=== PATIENT | male | born 1950 | race Caucasian/White ===

== ENCOUNTER → 2016-10-11 | Outpatient (REF) | payer OTHER ==
[2016-10-11 12:56] LABS: ALBUMIN 3.8 GM/DL (3.2-5.2); ALBUMIN/GLOBULIN RATIO 0.93 (1.00-1.93); ALKALINE PHOSPHATASE 51 U/L (45-117); ALT/SGPT 38 U/L (12-78); ANION GAP 7 MEQ/L (8-16); AST/SGOT 27 U/L (15-37); BILIRUBIN,TOTAL 0.6 MG/DL (0.2-1.0); BLOOD UREA NITROGEN 24 MG/DL (7-18); CARBON DIOXIDE LEVEL 26 MEQ/L (21-32); CHLORIDE LEVEL 108 MEQ/L (98-107); CHOLESTEROL LEVEL 139 MG/DL (<200); CREATININE FOR GFR 1.16 MG/DL (0.70-1.30); GLOMERULAR FILTRATION RATE > 60.0 (>49); GLUCOSE, FASTING 193 MG/DL (80-110); POTASSIUM SERUM 4.3 MEQ/L (3.5-5.1); SODIUM LEVEL 141 MEQ/L (136-145); TOTAL PROTEIN 7.9 GM/DL (6.4-8.2); TRIGLYCERIDES LEVEL 183 MG/DL (<150)
== END ==
LOC: M LABDRAW1 11:12
PROVIDERS: ATTEND Emergency Medicine
DX: E11.9 Type 2 diabetes mellitus without complications (principal); I10 Essential (primary) hypertension; E78.2 Mixed hyperlipidemia

== ENCOUNTER → 2017-04-03 | Outpatient (REF) | payer OTHER ==
[2017-04-03 13:02] LABS: ALBUMIN 3.7 GM/DL (3.2-5.2); ALKALINE PHOSPHATASE 48 U/L (45-117); ALT/SGPT 33 U/L (12-78); ANION GAP 10 MEQ/L (8-16); AST/SGOT 22 U/L (7-37); BILIRUBIN,TOTAL 0.6 MG/DL (0.2-1.0); BLOOD UREA NITROGEN 28 MG/DL (7-18); CARBON DIOXIDE LEVEL 24 MEQ/L (21-32); CHLORIDE LEVEL 106 MEQ/L (98-107); CHOLESTEROL LEVEL 141 MG/DL (<200); CREATININE FOR GFR 1.06 MG/DL (0.70-1.30); GLOMERULAR FILTRATION RATE > 60.0 (>49); GLUCOSE, FASTING 200 MG/DL (80-110); POTASSIUM SERUM 4.1 MEQ/L (3.5-5.1); SODIUM LEVEL 140 MEQ/L (136-145); TOTAL PROTEIN 7.8 GM/DL (6.4-8.2); TRIGLYCERIDES LEVEL 166 MG/DL (<150)
== END ==
LOC: M LABDRAW1 08:20
PROVIDERS: ATTEND Emergency Medicine
DX: E78.2 Mixed hyperlipidemia (principal); I10 Essential (primary) hypertension; E11.40 Type 2 diabetes mellitus with diabetic neuropathy, unspecified

== ENCOUNTER → 2017-10-11 | Outpatient (REF) | payer OTHER ==
[2017-10-11 12:14] LABS: ALBUMIN 3.9 GM/DL (3.2-5.2); ALKALINE PHOSPHATASE 52 U/L (45-117); ALT/SGPT 39 U/L (12-78); ANION GAP 12 MEQ/L (8-16); AST/SGOT 22 U/L (7-37); BILIRUBIN,TOTAL 0.5 MG/DL (0.2-1.0); BLOOD UREA NITROGEN 26 MG/DL (7-18); CALCIUM LEVEL 9.1 MG/DL (8.8-10.2); CARBON DIOXIDE LEVEL 24 MEQ/L (21-32); CHLORIDE LEVEL 108 MEQ/L (98-107); CHOLESTEROL LEVEL 137 MG/DL (<200); CHOLESTEROL RISK RATIO 3.261 (<5); CREATININE FOR GFR 1.17 MG/DL (0.70-1.30); GLOMERULAR FILTRATION RATE > 60.0 (>49); GLUCOSE, FASTING 168 MG/DL (70-100); HDL CHOLESTEROL 42 MG/DL (>40); LDL CHOLESTEROL 61.2 MG/DL (<100); NON-HDL-C 95 MG/DL; POTASSIUM SERUM 4.1 MEQ/L (3.5-5.1); SODIUM LEVEL 144 MEQ/L (136-145); TOTAL PROTEIN 7.8 GM/DL (6.4-8.2); TRIGLYCERIDES LEVEL 169 MG/DL (<150)
[2017-10-11 13:00] LABS: ESTIMATED AVERAGE GLUCOSE 174 MG/DL (60-110); HEMOGLOBIN A1c 7.7 %
== END ==
LOC: M LABDRAW1 07:42
DX: E11.40 Type 2 diabetes mellitus with diabetic neuropathy, unspecified (principal); I10 Essential (primary) hypertension; E78.2 Mixed hyperlipidemia

== ENCOUNTER → 2018-04-13 | Outpatient (REF) | payer OTHER ==
[2018-04-13 10:49] LABS: ALBUMIN 3.9 GM/DL (3.2-5.2); BILIRUBIN,TOTAL 0.4 MG/DL (0.2-1.0); CALCIUM LEVEL 9.1 MG/DL (8.8-10.2); CHOLESTEROL RISK RATIO 4.742 (<5); CREATININE FOR GFR 1.33 MG/DL (0.70-1.30); GLOMERULAR FILTRATION RATE 57.3 (>49); POTASSIUM SERUM 4.3 MEQ/L (3.5-5.1); TOTAL PROTEIN 8.1 GM/DL (6.4-8.2)
[2018-04-13 10:58] LABS: HEMOGLOBIN A1c 8.1 %
== END ==
LOC: M LABDRAW1 09:26
PROVIDERS: ATTEND Emergency Medicine
DX: E11.40 Type 2 diabetes mellitus with diabetic neuropathy, unspecified (principal); I10 Essential (primary) hypertension; E78.2 Mixed hyperlipidemia

== ENCOUNTER → 2018-07-17 | Outpatient (REF) | payer MEDICARE ==
[2018-07-17 09:51] LABS: BASO # 0.1 10^3/uL (0.0-0.2); BASO % 1.2 % (0.0-1.0); EOS # 0.6 10^3/uL (0.0-0.50); EOS % 7.3 % (0.0-3.0); HEMATOCRIT 44.9 % (42.0-52.0); HEMOGLOBIN 15.1 g/dl (13.5-17.5); LYMPH # 2.3 10^3/uL (1.5-4.5); MEAN CORPUSCULAR HEMOGLOBIN 30.6 pg (27.0-33.0); MEAN CORPUSCULAR HGB CONC 33.6 g/dl (32.0-36.5); MEAN CORPUSCULAR VOLUME 91.1 fl (80.0-96.0); MONO # 0.8 10^3/uL (0.0-0.8); MONO % 10.2 % (0.0-5.0); NEUTROPHILS # 4.1 10^3/uL (1.8-7.7); NEUTROPHILS % 52.2 % (36.0-66.0); PLATELET COUNT, AUTOMATED 256 10^3/uL (150-450); RED BLOOD COUNT 4.93 10^6/uL (4.30-6.10); WHITE BLOOD COUNT 7.8 10^3/uL (4.0-10.0)
[2018-07-17 09:54] LABS: ALBUMIN 3.7 GM/DL (3.2-5.2); ALT/SGPT 39 U/L (12-78); BILIRUBIN,TOTAL 0.4 MG/DL (0.2-1.0); BLOOD UREA NITROGEN 29 MG/DL (7-18); CALCIUM LEVEL 8.2 MG/DL (8.8-10.2); CARBON DIOXIDE LEVEL 24 MEQ/L (21-32); CHLORIDE LEVEL 109 MEQ/L (98-107); CREATININE FOR GFR 1.19 MG/DL (0.70-1.30); GLOMERULAR FILTRATION RATE > 60.0 (>49); GLUCOSE, FASTING 152 MG/DL (70-100); POTASSIUM SERUM 3.7 MEQ/L (3.5-5.1); SODIUM LEVEL 140 MEQ/L (136-145); TOTAL PROTEIN 7.4 GM/DL (6.4-8.2)
[2018-07-17 10:27] LABS: HEMOGLOBIN A1c 7.1 %
== END ==
LOC: M LABDRAW1 09:18
PROVIDERS: ATTEND Physician Assistant
DX: E11.40 Type 2 diabetes mellitus with diabetic neuropathy, unspecified (principal)

== ENCOUNTER → 2018-07-18 | Outpatient (REF) | payer MEDICARE ==
[2018-07-18 14:07] LABS: MALB URINE SIEMENS 12.1 MG/L; MAU/CREAT RATIO 10.6 MCG/MG (0.0-30.0)
== END ==
LOC: M LAB REF 12:47
PROVIDERS: ATTEND Physician Assistant
DX: E11.40 Type 2 diabetes mellitus with diabetic neuropathy, unspecified (principal)

== ENCOUNTER → 2019-01-22 | Outpatient (REF) | payer MEDICARE ==
[2019-01-22 12:12] LABS: ALBUMIN 3.7 GM/DL (3.2-5.2); ALT/SGPT 38 U/L (12-78); BILIRUBIN,TOTAL 0.5 MG/DL (0.2-1.0); BLOOD UREA NITROGEN 27 MG/DL (7-18); CALCIUM LEVEL 8.5 MG/DL (8.8-10.2); CARBON DIOXIDE LEVEL 28 MEQ/L (21-32); CHLORIDE LEVEL 106 MEQ/L (98-107); CHOLESTEROL LEVEL 139 MG/DL (<200); CHOLESTEROL RISK RATIO 3.564 (<5); CREATININE FOR GFR 1.12 MG/DL (0.70-1.30); GLOMERULAR FILTRATION RATE > 60.0 (>49); GLUCOSE, FASTING 128 MG/DL (70-100); HDL CHOLESTEROL 39 MG/DL (>40); LDL CHOLESTEROL 71 MG/DL (<100); NON-HDL-C 100 MG/DL; POTASSIUM SERUM 4.3 MEQ/L (3.5-5.1); SODIUM LEVEL 141 MEQ/L (136-145); TOTAL PROTEIN 7.4 GM/DL (6.4-8.2); TRIGLYCERIDES LEVEL 146 MG/DL (<150)
[2019-01-22 13:13] LABS: HEMOGLOBIN A1c 6.4 %
== END ==
LOC: M LABDRAW1 11:23
PROVIDERS: ATTEND Physician Assistant
DX: E11.40 Type 2 diabetes mellitus with diabetic neuropathy, unspecified (principal)

== ENCOUNTER → 2019-04-01 | Outpatient (CLI) | payer MEDICARE ==
--- NOTE | 2019-04-02 09:00 | REP ---
Left rib series: Seven views including PA chest. History: "Contusion of right back wall this a.m." , injury in a fall. Findings: Left rib views are obtained. PA chest views show no evidence of pneumothorax or hydrothorax on either side. No pulmonary contusion is seen. No mediastinal widening is noted. Heart size is normal. Multiple views of the left rib cage show no evidence of rib fracture or bony destructive lesion. Impression: Negative left rib radiographs series. Please note that history states contusion to the right back wall. Electronically Signed by Shaun Loera MD 04/02/2019 08:51 A
== END ==
LOC: M ADAMS 18:16
PROVIDERS: ATTEND Physician Assistant
DX: S20.221A Contusion of right back wall of thorax, initial encounter (principal); X58.XXXA Exposure to other specified factors, initial encounter; Y92.89 Other specified places as the place of occurrence of the external cause

== ENCOUNTER → 2019-04-03 | Outpatient (CLI) | payer MEDICARE ==
--- NOTE | 2019-04-03 14:25 | REP ---
Five views chest/right ribs: 04/03/2019. Indication: Right chest trauma. Comparison: 2 days earlier. Findings: There is no evidence of right rib fracture. There is no pneumothorax or evidence of lung contusion. Bibasilar atelectasis is present, particularly on the left. Multilevel degenerative sequelae of the thoracic spine are noted. Impression: No right-sided rib fracture detected. Electronically Signed by Saman Bourgeois DO 04/03/2019 02:16 P
== END ==
LOC: M ADAMS 13:42
PROVIDERS: ATTEND Physician Assistant
DX: S20.221A Contusion of right back wall of thorax, initial encounter (principal); X58.XXXA Exposure to other specified factors, initial encounter; Y92.89 Other specified places as the place of occurrence of the external cause

== ENCOUNTER → 2020-04-23 | Outpatient (CLI) | payer MEDICARE ==
[2020-04-23 11:08] LABS: BASO # 0.1 10^3/uL (0.0-0.2); BASO % 0.8 % (0.0-1.0); EOS # 0.6 10^3/uL (0.0-0.5); EOS % 6.8 % (0.0-3.0); HEMATOCRIT 48.4 % (42.0-52.0); HEMOGLOBIN 15.8 g/dl (13.5-17.5); LYMPH # 1.9 10^3/uL (1.5-5.0); LYMPH % 22.3 % (24.0-44.0); MEAN CORPUSCULAR HEMOGLOBIN 31.2 pg (27.0-33.0); MEAN CORPUSCULAR HGB CONC 32.6 g/dl (32.0-36.5); MEAN CORPUSCULAR VOLUME 95.7 fl (80.0-96.0); MONO # 1.2 10^3/uL (0.0-0.8); MONO % 14.8 % (0.0-5.0); NEUTROPHILS # 4.6 10^3/uL (1.5-8.5); NEUTROPHILS % 55.1 % (36.0-66.0); PLATELET COUNT, AUTOMATED 288 10^3/uL (150-450); RED BLOOD COUNT 5.06 10^6/uL (4.30-6.10); WHITE BLOOD COUNT 8.3 10^3/uL (4.0-10.0)
[2020-04-23 11:39] LABS: ALT/SGPT 51 U/L (12-78); BILIRUBIN,TOTAL 0.7 MG/DL (0.2-1.0); BLOOD UREA NITROGEN 28 MG/DL (7-18); CARBON DIOXIDE LEVEL 26 MEQ/L (21-32); CHLORIDE LEVEL 108 MEQ/L (98-107); CHOLESTEROL LEVEL 156 MG/DL (<200); CREATININE FOR GFR 1.23 MG/DL (0.70-1.30); GLOMERULAR FILTRATION RATE > 60.0 (>49); GLUCOSE, FASTING 75 MG/DL (70-100); HDL CHOLESTEROL 39 MG/DL (>40); LDL CHOLESTEROL 87 MG/DL (<100); NON-HDL-C 117 MG/DL; SODIUM LEVEL 140 MEQ/L (136-145); TOTAL PROTEIN 7.6 GM/DL (6.4-8.2); TRIGLYCERIDES LEVEL 149 MG/DL (<150)
[2020-04-23 15:22] LABS: HEMOGLOBIN A1c 6.7 %
== END ==
LOC: M PLALAB 08:18
PROVIDERS: ATTEND Physician Assistant
DX: E11.40 Type 2 diabetes mellitus with diabetic neuropathy, unspecified (principal); E78.2 Mixed hyperlipidemia; I70.213 Atherosclerosis of native arteries of extremities with intermittent claudication, bilateral legs

== ENCOUNTER → 2020-05-13 | Outpatient (CLI) | payer MEDICARE ==
[~2020-05-13] MED LIST: BRIM0.2S13 OS; CEPH500T PO; HYDR25TA PO; ISOS10TAB PO; KETO0.3S OS; LEVO500T3 PO; LISI20TA35 PO; NOVOINJ12 SC; NOVOINJ13 SC; PERC5TAB12 PO; SIMV40TA20 PO; TIMO0.5S29 OS; ZYVO1TAB PO
--- NOTE | 2020-05-13 18:47 | REP ---
INDICATION: CELLULITIS OF LEFT LOWER LIMB. COMPARISON: None. TECHNIQUE: Four views of the left foot are provided. FINDINGS: Four views of the left foot demonstrate overall normal mineral density. There are osteoarthritic changes at the 1st and 2nd MTP joints. Mild midfoot osteoarthritic spurring is seen. Vascular calcification is noted. Achilles calcaneal spurring is noted. There is dorsal forefoot soft tissue swelling which extends to some degree across the midfoot and ankle region anteriorly. No soft tissue gas or opaque foreign body is seen. No fracture is noted.. . . IMPRESSION: Osteoarthritic changes and heel spurring. Diffuse dorsal soft tissue swelling. Otherwise negative. No acute bony abnormality. Vascular calcification is seen.. <Electronically signed by Tristan Loera > 05/13/20 [id number]
== END ==
LOC: M ADAMS 15:04
PROVIDERS: ATTEND Nurse Practitioner Family
DX: L03.116 Cellulitis of left lower limb (principal); M19.072 Primary osteoarthritis, left ankle and foot; M77.32 Calcaneal spur, left foot

== ENCOUNTER 2020-05-15 10:13 | Inpatient (IN) | payer MEDICARE ==
[~2020-05-15] VITALS: Ht 180.3 cm; Wt 135.6 kg
[2020-05-15] MEDS ORDERED: SIMV40TA20 PO (10:32)
[2020-05-15] MEDS ORDERED: CEPH500T PO (10:32)
[2020-05-15] MEDS ORDERED: KETO0.3S OS (10:32)
[2020-05-15] MEDS ORDERED: LISI20TA35 PO (10:32)
[2020-05-15] MEDS ORDERED: BRIM0.2S13 OS (10:32)
[2020-05-15] MEDS ORDERED: TIMO0.5S29 OS (10:32)
[2020-05-15] MEDS ORDERED: NOVOINJ13 SC (10:34)
[2020-05-15] MEDS ORDERED: NOVOINJ12 SC (10:34)
--- OUTSIDE RECORDS SUMMARY | 2020-05-15 11:20 | CCD | Continuity of Care Document ---
Author Author Saurabh GUSTAFSON [facility] Organization Unknown Address [address] [place] [address] Phone [phone] Care Team Providers Care Spooler Operator Name Role Phone [facility] - Otolaryngology AUTM [phone] Darwin Stevenson MD AUTM [phone] [facility] AUTM Tani Mina MD AUTM Myke [place] AUTM [phone] Maty Barbour MD AUTM [phone] [facility] - Dermatology AUTM [phone] Problems Active Problems Provider Date Type 2 diabetes mellitus Blanca Harris, ANP Onset: 2010 Intermittent claudication due to atherosclerosis of ar calin of limb Geeta Velazquez PA-C Onset: 10/04/2019 Type 2 diabetes mellitus with proliferat geeta diabetic retinopathy with macular edema, right eye Ishan Stanton M.D. Onset: 10/16/2017 Intermittent claudication due to atherosclerosis of ar calin of limb Ishan Stanton M.D. Onset: 10/16/2017 Morbid obesity Ishan Stanton M.D. Onset: 2017 Type 2 diabetes mellitus with diabetic neuropathy, uns pecified Ishan Stanton M.D. Onset: 04/04/2017 Gastroesophageal reflux disease Ishan Stanton M.D. O nset: 11/04/2010 Dysfunction of eustachian tube Ishan Stanton M.D. On set: 09/07/2010 Benign paroxysmal positional vertigo Ishan Stanton M .D. Onset: 07/29/2010 Mixed hyperlipidemia Ishan Stanton M.D. Onset: 07/29 Essential hypertension Ishan Stanton M.D. Onset: Social History Type Date Description Comments Sex Unknown Tobacco Use Start: Unknown End: Unknown denies cigarette use Tobacco Use Start: Unknown Never Used Smokeless Tobacco ETOH Use Rarely consumes alcohol Tobacco Use Start: 04/17/64 End: 04/17/78 Patient is a forme r smoker smoked about 2 ppd Recreational Drug Use Denies Drug Use Smoking Status Reviewed: 05/12/20 Patient is a former smoker sm oked about 2 ppd Exercise Type/Frequency Does not exercise Sun Exposure Does not use sunscreen Seat Belt/Car Seat Always uses seat belt Smoke Alarms Yes Smoke Alarms Carbon Monoxide Detector: Yes Allergies, Adverse Reactions, Alerts Active Allergies Reaction Severity Comments Date Dye Nausea and Vomiting, hives 1 06/03/2008 Ibuprofen Anaphylaxis 04/02/2009 Medications Active Medications SIG Qnty Indications Ordering Provide r Date Cephalexin 500mg Tablets 1 by mouth four times a day 40tabs L03.116 Kiersten Gustafson FNP 05/12/2020 Onetouch Ultra 2 W/Device Kit use to monitor blood glucose up to 5 times daily, dx E11.9, using insulin 1units Ishan Stanton M.D. 04/20/2015 Onetouch Lancets Misc use to monitor blood glucose up to 5 times daily , e11.9, using insulin 400units Ishan Stanton M.D. 04/20/2015 Onetouch Ultra Blue Strips test fasting glucose up to 5 times daily for insulin management, dx e11.9 400units E11.9 Ishan Stanton M.D. 04/20/2015 Simvastatin 40mg Tablets take one tablet by mouth every day for cholesterol 90tabs E78.2 Jaxon Schreiber M.D. 04/07/2015 BD Pen Needle/Short/Ultrafine/31G X 5/16 " 31G X 8 mm Misc use for 5 times daily insulin injections 150units Ishan Stanton M.D. 02/05/2015 Lisinopril-Hydrochlorothiazide 20-12.5mg Tablets take two tablets by mouth every morning 180tabs I10 aYreli Schreiber M.D. 10/07/2013 Ketorolac Tromethamine 0.5% Soluti on 1 drop in affected eye four times a day as needed Unknown Cosopt 22.3-6.8mg/ml Solution one gtt. os twice a day Unknown Novolin 50 units am sc and 50 units pm sc Fi Maty jarrett MD Novolin R per sliding scale Maty Barbour MD Timolol Maleate 0.5% Solution place in both eyes twice a day Unknown Immunizations CPT Code Status Date Vaccine Lot # [id number] Refused 04/18/2018 Prevnar 13 For Adults 56163 Refused 04/18/2018 Zoster (Shingles ) Vaccine (HZV), Recombinant, Subunit, Adjuvanted 86205 Refused 04/18/2018 Pneumococcal Vaccine 01487 Refused 04/18/2018 Boostrix (Tdap) Tetnus, Diphtheria Toxoids & Acellular Pertussis 93704 Refused 04/18/2018 Influenza Virus, quadravalent, preservative free,age 3 and up Vital Signs Date Vital Result Comment 05/12/2020 9:19am BP Systolic 152 mmHg right arm BP Diastolic 61 mmHg right arm BP Systolic Recheck 133 mmHg recheck on left arm BP Diastolic Recheck 57 mmHg recheck on left arm Heart Rate 88 /min Body Temperature 96.4 F Respiratory Rate 20 /min Height 69 inches 5'9" Weight 311.38 lb O2 % BldC Oximetry 98 % Peak Expiratory Flow Rate 487 Estimated Peak Flow Rate [place] Body Weight 160 lb BMI (Body Mass Index) 46.0 kg/m2 04/27/2020 9:33am BP Systolic 160 mmHg BP Diastolic 60 mmHg BP Systolic Recheck 143 mmHg BP Diastolic Recheck 76 mmHg Heart Rate 65 /min Body Temperature 97.7 F Respiratory Rate 22 /min Height 69 inches 5'9" Weight 309.38 lb O2 % BldC Oximetry 98 % Peak Expiratory Flow Rate 487 Estimated Peak Flow Rate [place] Body Weight 160 lb BMI (Body Mass Index) 45.7 kg/m2 Results Description No Information Available Procedures Date Code Description Status 04/17/2018 711617859 Diabetic Foot Exam Completed Medical Devices Description No Information Available Encounters Type Date Location Provider Dx Diagnosis Office Visit 05/12/2020 9:00a Main Office Kiersten Gustafson FNP L03.1 16 Cellulitis of left lower limb Office Visit 04/27/2020 9:15a Main Office Maritza Cabrera PA E11.40 Type 2 diabetes mellitus with diabetic neuropathy, unsp E78.2 Mixed hyperlipidemia I10 Essential (primary) hyperten ada Office Visit 11/19/2019 11:30a Main Office Geeta Velazquez PA-C K59.0 0 Constipation, unspecified Assessments Date Code Description Provider 05/12/2020 L03.116 Cellulitis of left lower limb Pl Kiersten farooq FNP 04/27/2020 E11.40 Type 2 diabetes kris itus with diabetic neuropathy, unspecified PetrMaritza christina PA 04/27/2020 E78.2 Mixed hyperlipidemia Maritza Cabrera PA 04/27/2020 I10 Essential (primary) hypertension Maritza Cabrera PA 11/19/2019 K59.00 Constipation, unspecified Geeta Velazquez PA-C Plan of Treatment Future Appointment(s):* 05/15/2020 9:45 am - Kiersten Gustafson FNP at Main Office * 10/28/2020 8:15 am - Maritza Cabrera PA at Main Office 05/12/2020 - Kiersten Gustafson FNP* L03.116 Cellulitis of left lower limb* New Medication:* Cephalexin 500 mg - 1 by mouth four times a day * Comments:* Get xray, start antibiotic. See patient back in office in 3 days, if there is no improvement will consider inpatient care vs appraisal specialist referral * Follow up:* Monday Functional Status Functional Condition Comment Date Status Independent with all ADL's Activ e Bifocal glasses Active Independent with all IADL's Acti ve Mental Status Mental Condition Comment Date Status None Active Referrals Description No Information Available
--- OUTSIDE RECORDS SUMMARY | 2020-05-15 11:20 | CCD | Continuity of Care Document ---
Author Author Saurabh GUSTAFSON [facility] Organization Unknown Address [address] [place] [address] Phone [phone] Care Team Providers Care Rn Stars Name Role Phone [facility] - Otolaryngology AUTM [phone] Darwin Stevenson MD AUTM [phone] [place] [facility] AUTM Tani Mina MD AUTM [place] AUTM [phone] Maty Barbour MD AUTM [phone] [facility] Dermatology - Dermatology AUTM Problems Active Problems Provider Date Type 2 [...] tablets by mouth every morning 180tabs I10 Yareli Schreiber M.D. 10/07/2013 Ketorolac Tromethamine 0.5% Soluti [...] CPT Code Status Date Vaccine Lot # [id number] Refused 04/18/2018 Prevnar 13 For Adults 08497 Refused 04/18/2018 Zoster (Shingles ) Vaccine (HZV), Recombinant, Subunit, Adjuvanted 48923 Refused 04/18/2018 Pneumococcal Vaccine 20020 Refused 04/18/2018 Boostrix (Tdap) Tetnus, Diphtheria Toxoids & Acellular Pertussis 25339 Refused 04/18/2018 Influenza Virus, quadravalent, preservative free,age [...] Flow Rate 487 Estimated Peak Flow Rate [place] Body Weight 160 lb BMI (Body Mass [...] Flow Rate 487 Estimated Peak Flow Rate [place] Body Weight 160 lb BMI (Body Mass Index) 45.7 kg/m2 Results Description No Information Available Procedures Date Code Description Status 04/17/2018 976205250 Diabetic Foot Exam Completed Medical Devices Description No Information Available Encounters Type Date Location Provider Dx Diagnosis Office Visit 04/27/2020 9:15a Main Office Maritza [...] diabetes kris itus with diabetic neuropathy, unspecified Maritza Cabrera PA 04/27/2020 E78.2 Mixed hyperlipidemia Maritza Cabrera PA 04/27/2020 I10 Essential (primary) hypertension Maritza Cabrera PA 11/19/2019 K59.00 Constipation, unspecified Geeta Velazquez PA-C Plan of Treatment Future Appointment(s):* 10/28/2020 8:15 am - Maritza Cabrera PA at Main Office 05/12/2020 - Kiersten Gustafson FNP* L03.116 Cellulitis of left lower limb* New Medication:* Cephalexin 500 mg - 1 by mouth four times a day * New Xrays:* Foot, Complete, Left, Scheduled: 05/12/20 * Follow up:* Monday Functional Status Functional Condition Comment Date Status Independent with all ADL's Activ e Bifocal glasses Active Independent with all IADL's Acti ve Mental Status Mental Condition Comment Date Status None Active Referrals Description No Information Available
--- OUTSIDE RECORDS SUMMARY | 2020-05-15 11:20 | CCD | Continuity of Care Document ---
Author Author Saurabh FREDERICK PA Organization Unknown Address [address] [place] [address] Phone [phone] Care Team Providers Care Glue Maker Name Role Phone [facility] - Otolaryngology AUTM [phone] Darwin Stevenson MD AUTM [phone] [facility] AUTM Tani Mina MD AUTM [place] AUTM [phone] Maty Barbour MD AUTM [phone] [facility] Dermatology - Dermatology AUTM Problems Active Problems [...] Use Denies Drug Use Smoking Status Reviewed: 04/27/20 Patient is a former smoker sm oked [...] SIG Qnty Indications Ordering Provide r Date Onetouch Ultra 2 W/Device Kit use to [...] mouth every day for cholesterol 90tabs E78.2 Jaxno Schreiber M.D. 04/07/2015 BD Pen Needle/Short/Ultrafine/31G X [...] CPT Code Status Date Vaccine Lot # [id number] Refused 04/18/2018 Prevnar 13 For Adults 55952 Refused 04/18/2018 Zoster (Shingles ) Vaccine (HZV), Recombinant, Subunit, Adjuvanted 65362 Refused 04/18/2018 Pneumococcal Vaccine 87155 Refused 04/18/2018 Boostrix (Tdap) Tetnus, Diphtheria Toxoids & Acellular Pertussis 46008 Refused 04/18/2018 Influenza Virus, quadravalent, preservative free,age 3 and up Vital Signs Date Vital Result Comment 04/27/2020 9:33am BP Systolic 160 mmHg BP Diastolic 60 mmHg BP Systolic Recheck 143 mmHg BP Diastolic Recheck 76 mmHg Heart Rate 65 /min Body Temperature 97.7 F Respiratory Rate 22 /min Height 69 inches 5'9" Weight 309.38 lb O2 % BldC Oximetry 98 % Peak Expiratory Flow Rate 487 Estimated Peak Flow Rate [place] Body Weight 160 lb BMI (Body Mass Index) 45.7 kg/m2 11/19/2019 11:30am BP Systolic 137 mmHg BP Diastolic 59 mmHg Heart Rate 75 /min Body Temperature 98.3 F Respiratory Rate 18 /min Height 69 inches 5'9" Weight 307.12 lb O2 % BldC Oximetry 97 % Peak Expiratory Flow Rate 489 Estimated Peak Flow Rate [place] Body Weight 160 lb BMI (Body Mass Index) 45.3 kg/m2 Results Description No Information Available Procedures Date Code Description Status 04/17/2018 010320486 Diabetic Foot Exam Completed Medical Devices Description No Information Available Encounters Type Date Location Provider Dx Diagnosis Office Visit 04/27/2020 9:15a Main Office Maritza Frederick PA E11.40 Type 2 diabetes mellitus with diabetic neuropathy, unsp E78.2 Mixed hyperlipidemia I10 Essential (primary) hyperten ada Office Visit 11/19/2019 11:30a Main Office Geeta Velazquez PA-C K59.0 0 Constipation, unspecified Assessments Date Code Description Provider 04/27/2020 E11.40 Type 2 diabetes kris itus with diabetic neuropathy, unspecified Maritza Frederick PA 04/27/2020 E78.2 Mixed hyperlipidemia Maritza Frederick PA 04/27/2020 I10 Essential (primary) hypertension Maritza Frederick PA 11/19/2019 K59.00 Constipation, unspecified Geeta Velazquez PA-C Plan of Treatment Future Appointment(s):* 10/28/2020 8:15 am - Maritza Frederick PA at Main Office Functional Status Functional Condition Comment Date Status Independent with all ADL's Activ e Bifocal glasses Active Independent with all IADL's Acti ve Mental Status Mental Condition Comment Date Status None Active Referrals Description No Information Available
--- OUTSIDE RECORDS SUMMARY | 2020-05-15 11:21 | CCD ---
Continuity of Care Document (CCD) Created on: 04/27/2020 Saurabh Abdi External Reference #: [id number] : [id number] Sex: Male Author Author Saurabh MAC PA-C Organization Unknown Address [address] [place] [address] Phone [phone] Care Team Providers Care Golf Cart Assembler Name Role Phone [facility] - Otolaryngology AUTM [phone] Darwin Stevenson MD AUTM [phone] [facility] AUTM Tani Mina MD AUTM [place] AUTM [phone] Maty Barbour MD AUTM [phone] [facility] Dermatology - Dermatology AUTM [phone] Problems Active Problems Provider Date Type 2 diabetes mellitus Blanca Harris, ANP Onset: 2010 Intermittent claudication due to atherosclerosis of ar calin of limb Geeta Mac PA-C Onset: 10/04/2019 Type 2 diabetes mellitus [...] CPT Code Status Date Vaccine Lot # 31131 Refused 04/18/2018 Prevnar 13 For Adults 45463 Refused 04/18/2018 Zoster (Shingles ) Vaccine (HZV), Recombinant, Subunit, Adjuvanted 43723 Refused 04/18/2018 Pneumococcal Vaccine 57477 Refused 04/18/2018 Boostrix (Tdap) Tetnus, Diphtheria Toxoids & Acellular Pertussis 82425 Refused 04/18/2018 Influenza Virus, quadravalent, preservative free,age [...] Flow Rate 487 Estimated Peak Flow Rate [place] Body Weight 160 lb BMI (Body Mass Index) 45.7 kg/m2 11/19/2019 11:30am BP Systolic 137 mmHg BP Diastolic 59 mmHg Heart Rate 75 /min Body Temperature 98.3 F Respiratory Rate 18 /min Height 69 inches 5'9" Weight 307.12 lb O2 % BldC Oximetry 97 % Peak Expiratory Flow Rate 489 Estimated Peak Flow Rate [place] Body Weight 160 lb BMI (Body Mass Index) 45.3 kg/m2 Results Description No Information Available Procedures Date Code Description Status 04/17/2018 [id number] Diabetic Foot Exam Completed Medical Devices Description No Information Available Encounters Type Date Location Provider Dx Diagnosis Office Visit 04/27/2020 9:15a Main Office Maritza Cabrera PA E11.40 Type 2 diabetes mellitus with diabetic neuropathy, unsp E78.2 Mixed hyperlipidemia I10 Essential (primary) hyperten ada Office Visit 11/19/2019 11:30a Main Office Geeta Mac PA-C K59.0 0 Constipation, unspecified Assessments Date Code Description Provider 04/27/2020 E11.40 Type 2 diabetes kris itus with diabetic neuropathy, unspecified Maritza Cabrera PA 04/27/2020 E78.2 Mixed hyperlipidemia Maritza Cabrera PA 04/27/2020 I10 Essential (primary) hypertension Maritza Cabrera PA 11/19/2019 K59.00 Constipation, unspecified Geeta Mac PA-C Plan of Treatment Future Appointment(s):* 10/28/2020 8:15 am - Maritza Cabrera PA at Main Office 04/27/2020 - Maritza Cabrera PA* E11.40 Type 2 diabetes mellitus with diabetic neuropathy, unspecified* Comments:* A1c 6.7%, labs reviewed and discussedcontinue insulin, work on diet improvements and weight lossrefuses flu shot and pneumovax todayfoot exam done todayeye exam scheduled for later this weekhe does have some sores on his left 5th toe. No active infection today but he was encouraged to check feet daily at home to monitor for chnage * Follow up:* 6 months * E78.2 Mixed hyperlipidemia* Comments:* LDL at goal, continue simvastatin * I10 Essential (primary) hypertension* Comments:* stable, continue medication Functional Status Functional Condition Comment Date Status Independent with all ADL's Activ e Bifocal glasses Active Independent with all IADL's Acti ve Mental Status Mental Condition Comment Date Status None Active Referrals Description No Information Available
--- OUTSIDE RECORDS SUMMARY | 2020-05-15 11:21 | CCD ---
Author Author [facility] Organization [facility] Address Unknown Phone Unavailable Care Team Providers Care Frit Coater Name Role Phone Natalia Schreiber MD Unavailable Unavailable Abdoul, Natalia Downs MD Unavailable Unavailable Abdoul, Natalia Downs MD Unavailable Unavailable Abdoul, Natalia Downs MD Unavailable Unavailable Abdoul, Natalia Downs MD Unavailable Unavailable Abdoul, Natalia Downs MD Unavailable Unavailable Abdoul, Natalia Downs MD Unavailable Unavailable Abdoul, Natalia Downs MD Unavailable Unavailable Abdoul, Natalia Downs MD Unavailable Unavailable Abdoul, Natalia Downs MD Unavailable Unavailable Abdoul, Natalia Downs MD Unavailable Unavailable Abdoul, Natalia Downs MD Unavailable Unavailable Abdoul, Natalia Downs MD Unavailable Unavailable Abdoul, Natalia Downs MD Unavailable Unavailable Abdoul, Natalia Downs MD Unavailable Unavailable Abdoul, Natalia Downs MD Unavailable Unavailable Abdoul, Natalia Downs MD Unavailable Unavailable Abdoul, Natalia Downs MD Unavailable Unavailable Abdoul, Natalia Downs MD Unavailable Unavailable Abdoul, Natalia Downs MD Unavailable Unavailable Abdoul, Natalia Downs MD Unavailable Unavailable Abdoul, Natalia Downs MD Unavailable Unavailable Abdoul, Natalia Downs MD Unavailable Unavailable Abdoul, Natalia Downs MD Unavailable Unavailable Abdoul, Natalia Downs MD Unavailable Unavailable Abdoul, Natalia Downs MD Unavailable Unavailable Abdoul, Natalia Downs MD Unavailable Unavailable Abdoul, Natalia Downs MD Unavailable Unavailable Abdoul, Natalia Downs MD Unavailable Unavailable Abdoul, Natalia Downs MD Unavailable Unavailable Abdoul, Natalia Downs MD Unavailable Unavailable Abdoul, Natalia Downs MD Unavailable Unavailable Abdoul, Natalia Downs MD Unavailable Unavailable Abdoul, Natalia Downs MD Unavailable Unavailable Abdoul, Natalai Downs MD Unavailable Unavailable Abdoul, Natalia Downs MD Unavailable Unavailable Abdoul, Natalia Downs MD Unavailable Unavailable Abdoul, Natalia Downs MD Unavailable Unavailable Abdoul, Natalia Downs MD Unavailable Unavailable Abdoul, Natalia Downs MD Unavailable Unavailable Abdoul, Natalia Downs MD Unavailable Unavailable Abdoul, Natalia Downs MD Unavailable Unavailable Abdoul, Natalia Downs MD Unavailable Unavailable Abdoul, Natalia Downs MD Unavailable Unavailable Abdoul, Natalia Downs MD Unavailable Unavailable Abdoul, Natalia Downs MD Unavailable Unavailable Abdoul, Natalia Downs MD Unavailable Unavailable Abdoul, Natalia Downs MD Unavailable Unavailable Abdoul, Natalia Downs MD Unavailable Unavailable Abdoul, Natalia Downs MD Unavailable Unavailable Abdoul, Natalia Downs MD Unavailable Unavailable Abdoul, Natalia Downs MD Unavailable Unavailable Abdoul, Natalia Downs MD Unavailable Unavailable Abdoul, Natalia Downs MD Unavailable Unavailable Abdoul, Natalia Downs MD Unavailable Unavailable Abdoul, Natalia Downs MD Unavailable Unavailable Abdoul, Natalia Downs MD Unavailable Unavailable Abdoul, Natalia Downs MD Unavailable Unavailable Abdoul, Natalia Downs MD Unavailable Unavailable Abdoul, Natalia Downs MD Unavailable Unavailable Abdoul, Natalia Downs MD Unavailable Unavailable Abdoul, Natalia Downs MD Unavailable Unavailable Abdoul, Natalia Downs MD Unavailable Unavailable Abdoul, Natalia Downs MD Unavailable Unavailable Abdoul, Natalia Downs MD Unavailable Unavailable Abdoul, Natalia Downs MD Unavailable Unavailable Abdoul, Natalia Downs MD Unavailable Unavailable Abdoul, Natalia Downs MD Unavailable Unavailable Abdoul, Natalia Downs MD Unavailable Unavailable Abdoul, Natalia Downs MD Unavailable Unavailable Abdoul, Natalia Downs MD Unavailable Unavailable Abdoul, Natalia Downs MD Unavailable Unavailable Abdoul, Natalia Downs MD Unavailable Unavailable Abdoul, Natalia Downs MD Unavailable Unavailable Abdoul, Natalia Downs MD Unavailable Unavailable Scordo, M Geeta PA Unavailable Unavailable Scordo, M Geeta PA Unavailable Unavailable Scordo, M Geeta PA Unavailable Unavailable Scordo, M Geeta PA Unavailable Unavailable Scordo, M Geeta PA Unavailable Unavailable Scordo, M Geeta PA Unavailable Unavailable Scordo, M Geeta PA Unavailable Unavailable Scordo, M Geeta PA Unavailable Unavailable Scordo, M Geeta PA Unavailable Unavailable Scordo, M Geeta PA Unavailable Unavailable Scordo, M Geeta PA Unavailable Unavailable Scordo, M Geeta PA Unavailable Unavailable Scordo, M Geeta PA Unavailable Unavailable Scordo, M Geeta PA Unavailable Unavailable Scordo, M Geeta PA Unavailable Unavailable Scordo, M Geeta PA Unavailable Unavailable Scordo, M Geeta PA Unavailable Unavailable Scordo, M Geeta PA Unavailable Unavailable Scordo, M Geeta PA Unavailable Unavailable Scordo, M Geeta PA Unavailable Unavailable Scordo, M Geeta PA Unavailable Unavailable Scordo, M Geeta PA Unavailable Unavailable Scordo, M Geeta PA Unavailable Unavailable Scordo, M Geeta PA Unavailable Unavailable Scordo, M Geeta PA Unavailable Unavailable Scordo, M Getea PA Unavailable Unavailable Scordo, M Geeta PA Unavailable Unavailable Scordo, M Geeta PA Unavailable Unavailable Scordo, M Geeta PA Unavailable Unavailable Scordo, M Geeta PA Unavailable Unavailable Scordo, M Geeta PA Unavailable Unavailable Scordo, M Geeta PA Unavailable Unavailable Scordo, M Geeta PA Unavailable Unavailable Scordo, M Geeta PA Unavailable Unavailable Scordo, M Geeta PA Unavailable Unavailable Scordo, M Geeta PA Unavailable Unavailable Scordo, M Geeta PA Unavailable Unavailable Scordo, M Geeta PA Unavailable Unavailable Scordo, M Geeta PA Unavailable Unavailable Scordo, M Geeta PA Unavailable Unavailable Scordo, M Geeta PA Unavailable Unavailable Scordo, M Geeta PA Unavailable Unavailable Pleskach, Kiersten CONSTRUCTION PROJECT COORDINATOR Unavailable Unavailable Pleskach, Kiersten CONSTRUCTION PROJECT COORDINATOR Unavailable Unavailable Pleskach, Kiersten CONSTRUCTION PROJECT COORDINATOR Unavailable Unavailable Pleskach, Kiersten CONSTRUCTION PROJECT COORDINATOR Unavailable Unavailable Pleskach, Kiersten CONSTRUCTION PROJECT COORDINATOR Unavailable Unavailable Pleskach, Kiersten CONSTRUCTION PROJECT COORDINATOR Unavailable Unavailable Pleskach, Kiersten CONSTRUCTION PROJECT COORDINATOR Unavailable Unavailable Pleskach, Kiersten CONSTRUCTION PROJECT COORDINATOR Unavailable Unavailable Pleskach, Kiersten CONSTRUCTION PROJECT COORDINATOR Unavailable Unavailable Pleskach, Kiersten CONSTRUCTION PROJECT COORDINATOR Unavailable Unavailable Pleskach, Kiersten CONSTRUCTION PROJECT COORDINATOR Unavailable Unavailable Pleskach, Kiersten CONSTRUCTION PROJECT COORDINATOR Unavailable Unavailable Pleskach, Kiersten CONSTRUCTION PROJECT COORDINATOR Unavailable Unavailable Pleskach, Kiersten CONSTRUCTION PROJECT COORDINATOR Unavailable Unavailable Pleskach, Kiersten CONSTRUCTION PROJECT COORDINATOR Unavailable Unavailable Pleskach, Kiersten CONSTRUCTION PROJECT COORDINATOR Unavailable Unavailable Pleskach, Kiersten CONSTRUCTION PROJECT COORDINATOR Unavailable Unavailable Pleskach, Kiersten CONSTRUCTION PROJECT COORDINATOR Unavailable Unavailable Pleskach, Kiersten CONSTRUCTION PROJECT COORDINATOR Unavailable Unavailable Pleskach, Kiersten CONSTRUCTION PROJECT COORDINATOR Unavailable Unavailable Pleskach, Kiersten CONSTRUCTION PROJECT COORDINATOR Unavailable Unavailable Pleskach, Kiersten CONSTRUCTION PROJECT COORDINATOR Unavailable Unavailable Pleskach, Kiersten CONSTRUCTION PROJECT COORDINATOR Unavailable Unavailable Pleskach, Kiersten CONSTRUCTION PROJECT COORDINATOR Unavailable Unavailable Pleskach, Kiersten CONSTRUCTION PROJECT COORDINATOR Unavailable Unavailable Pleskach, Kiersten CONSTRUCTION PROJECT COORDINATOR Unavailable Unavailable Pleskach, Kiersten CONSTRUCTION PROJECT COORDINATOR Unavailable Unavailable Pleskach, Kiersten CONSTRUCTION PROJECT COORDINATOR Unavailable Unavailable Pleskach, Kiersten CONSTRUCTION PROJECT COORDINATOR Unavailable Unavailable Petrancosta, Lyon Maritza PA-C Unavailable Unavailabl e Petrancosta, Lyon Maritza PA-C Unavailable Unavailabl e Petrancosta, Lyon Maritza PA-C Unavailable Unavailabl e Petrancosta, Lyon Maritza PA-C Unavailable Unavailabl e Petrancosta, Lyon Maritza PA-C Unavailable Unavailabl e Petrancosta, Lyon Maritza PA-C Unavailable Unavailabl e Petrancosta, Lyon Maritza PA-C Unavailable Unavailabl e Petrancosta, Lyon Maritza PA-C Unavailable Unavailabl e Petrancosta, Lyon Maritza PA-C Unavailable Unavailabl e Petrancosta, Lyon Maritza PA-C Unavailable Unavailabl e Petrancosta, Lyon Maritza PA-C Unavailable Unavailabl e Petrancosta, Lyon Maritza PA-C Unavailable Unavailabl e Petrancosta, Lyon Maritza PA-C Unavailable Unavailabl e Petrancosta, Lyon Maritza PA-C Unavailable Unavailabl e Petrancosta, Lyon Maritza PA-C Unavailable Unavailabl e Petrancosta, Lyon Maritza PA-C Unavailable Unavailabl e Petrancosta, Lyon Maritza PA-C Unavailable Unavailabl e Petrancosta, Lyon Maritza PA-C Unavailable Unavailabl e Petrancosta, Lyon Maritza PA-C Unavailable Unavailabl e Petrancosta, Lyon Maritza PA-C Unavailable Unavailabl e Petrancosta, Lyon Maritza PA-C Unavailable Unavailabl e Petrancosta, Lyon Maritza PA-C Unavailable Unavailabl e Petrancosta, Lyon Maritza PA-C Unavailable Unavailabl e RING, K VENANCIO PA Unavailable Unavailable RING, K VENANCIO PA Unavailable Unavailable RING, K VENANCIO PA Unavailable Unavailable RING, K VENANCIO PA Unavailable Unavailable RING, K VENANCIO PA Unavailable Unavailable RING, K VENANCIO PA Unavailable Unavailable RING, K VENANCIO PA Unavailable Unavailable RING, K VENANCIO PA Unavailable Unavailable RING, K VENANCIO PA Unavailable Unavailable RING, K VENANCIO PA Unavailable Unavailable RING, K VENANCIO PA Unavailable Unavailable RING, K VENANCIO PA Unavailable Unavailable RING, K VENANCIO PA Unavailable Unavailable RING, K VENANCIO PA Unavailable Unavailable RING, K VENANCIO PA Unavailable Unavailable RING, K VENANCIO PA Unavailable Unavailable RING, K VENANCIO PA Unavailable Unavailable RING, K VENANCIO PA Unavailable Unavailable RING, K VENANCIO PA Unavailable Unavailable RING, K VENANCIO PA Unavailable Unavailable Re-disclosure Warning The records that you are about to access may contain information from federally-assisted alcohol or drug abuse programs. If such information is present, then the following federally mandated warning applies: This information has been disclosed to you from records protected by federal confidentiality rules (42 CFR part 2). The federal rules prohibit you from making any further disclosure of this information unless further disclosure is expressly permitted by the written consent of the person to whom it pertains or as otherwise permitted by 42 CFR part 2. A general authorization for the release of medical or other information is NOT sufficient for this purpose. The Federal rules restrict any use of the information to criminally investigate or prosecute any alcohol or drug abuse patient.The records that you are about to access may contain highly sensitive health information, the redisclosure of which is protected by Article 27-F of the [facility] Public Health law. If you continue you may have access to information: Regarding HIV / AIDS; Provided by facilities licensed or operated by the [facility] Office of Mental Health; or Provided by the [facility] Office for People With Developmental Disabilities. If such information is present, then the following [facility] mandated warning applies: This information has been disclosed to you from confidential records which are protected by state law. State law prohibits you from making any further disclosure of this information without the specific written consent of the person to whom it pertains, or as otherwise permitted by law. Any unauthorized further disclosure in violation of state law may result in a fine or correction sentence or both. A general authorization for the release of medical or other information is NOT sufficient authorization for further disc losure. Family History Family Member Name Family Member Gender Family Member Status Date o f Status Description Data Source(s) Unknown Male Problem [facility] ([facility]) Unknown Male Problem [facility] ([facility]) Unknown Unknown Problem [facility] ([facility] Encounters Encounter Providers Location Date Indications Data Source(s ) Outpatient Attender: Kiersten Gustafson [facility] Main Office 05/12/2020 0 8:00:00 AM EST [facility] ([facility] Outpatient Attender: Maritza Cabrera PA-C Main Office 04/27/2020 08:15:00 AM EST [facility] ([facility] Outpatient Attender: Geeta BAILON Main Office 11/19/2019 11:30:00 AM EDT [facility] ([facility] Outpatient Attender: Geeta BAILON Main Office 10/04/2019 08:00:00 AM EDT [facility] ([facility] Outpatient 04/24/2019 02:43:[address] [facility] Outpatient 04/21/2019 06:14:[address] [facility] Outpatient Attender: VENANCIO Ovalles [facility] 04/01/2019 03:30:00 PM EST [facility] ([facility]) Outpatient Attender: Yareli Schreiber MD Main Office 04/01/2019 03:00:0 0 PM EST [facility] ([facility] Medications Medication Brand Name Start Date Product Form Dose Route Admi nistrative Instructions Pharmacy Instructions Status Indications Reaction Description Data Source(s) Cephalexin 500 MG Oral Tablet Cephalexin 05/12/2020 12:00:00 AM EST ORAL active [facility] ([facility] olopatadine 2 MG/ML Ophthalmic Solution Olopatadine HCL 08/02/2019 12:00:00 AM EDT active [facility] ([facility] 5-325 mg 04/03/2019 12:00:00 AM EST tablet 12 TAKE ONE TABLET BY MOUTH EVERY 6 HOURS NEEDED FOR PAIN MAXIMUM DAILY DOSE = 4 TAKE ONE TABLET BY MOUTH EVERY 6 HOURS NEEDED FOR PAIN MAXIMUM DAILY DOSE = 4 SOLD: 04/03/2019 [facility] Acetaminophen 325 MG / Hydrocodone Bitartrate 5 MG Ora l Tablet Hydrocodone-Acetaminophen 04/03/2019 12:00:00 AM EST ORAL active [facility] ([facility] Insurance Providers Payer name Policy type / Coverage type Policy ID Covered constitution party ID Covered constitution party's relationship to guzman Policy Guzman Plan Information AETNA MEDICARE [id number] SP [id number] EMEDNY [id number] SP [id number] MEDICARE BLUE PPO [id number] SP [id number] WELLCARE [id number] SP [id number] UN COMMUNITY PLAN MCDO [id number] SP [id number] GROUP HEALTH INSURANCE [id number] SP [id number] AETNA O [id number] S [id number] AETNA O [id number] S [id number] AETNA O [id number] EXCELLUS BCBS B [id number] S [id number] Wellcare Commercial [id number] Self [id number] Blue Shield [facility] Advantage Commercial [id number] Self [id number] [facility] Medicare Commercial [id number] Self [id number] Wellcare Commercial [id number] Self [id number] Wellcare Today's Options Medigap Part [id number] Self [id number] [facility] Community Plan Commercial [id number] Self [id number] [facility] MEDICARE DUAL G [id number] Self [id number] [facility] MEDICARE DUAL G [id number] Self [id number] [facility] [id number] SP [id number] Ghi/Emblem HLTH (pr) Medigap Part B [id number] Self [id number] [facility] ([facility]) Commercial [id number] Self [id number] [facility] Community Plan Commercial [id number] Self [id number] [facility] Medicare Commercial [id number] Self [id number] [facility] Community Plan Commercial [id number] Self [id number] [facility] Medicare Commercial [id number] Self [id number] [facility] Community Plan Commercial [id number] Self [id number] [facility] Medicare Commercial [id number] Self [id number] UN COMMUNITY PLAN MCDO [id number] SP [id number] [facility] Community Plan Commercial Self [facility] Medicare Commercial Self [place] H [id number] Self [id number] GHI U [id number] Self [id number] [facility] Commercial Self [facility] COMM PLAN [place]ENZIE W [id number] S [id number] MEDICAID [id number] SP [id number] MEDICAID W [id number] S [id number] SELF PAY UNAVAILABLE SP UNAVAILA BLE GHI O [id number] S [id number] Problems, Conditions, and Diagnoses Code Display Name Description Problem Type Effective Dates Data Source(s) 134623440 Intermittent claudication due to atheros clerosis of artery of limb Intermittent claudication due to atherosclerosis of artery of limb Problem 10/04/2019 12:00:00 AM EDT [facility] ([facility] Results ID Date Data Source [id number] 11/28/2019 12:00:00 AM EDT [facility] Sherrie Hernandez Patient Name: EDUIN [id number] Date of : 1950[place] [address] Date of Exam: 11/28/2019#: Fax: [phone] EXAM: ABD FLAT & UPRIGHT W/O CHESTCLINICAL INFORMATION: Constipation.Supine and upright views of the abdomen show the intestinal gas pattern juan j nonspecific. The organs, silhouettes and so far as delineated appearunremarkable.Secondary to the patient's body habitus, the exam is limited due to lack ofoptimal radiographic beam penetration. Consider CT.IMPRESSION:Nonspecific intestinal gas pattern.DOROTHEA Carvajal/Amarjit you for referring EDUIN ELIZALDE to our office. Electronically Signed - DIOGENES ALBA DO 11/28/19 15:20 Name Value Range Interpretation Code Description Data Preeti rce(s) Supporting Document(s) Procedure Social History Code Duration Value Status Description Data Source(s ) Smoking 05/12/2020 12:00:00 AM EST - 04/17/1978 12:00:00 AM EST Patient is a former smoker completed Patient is a former smoker [facility] ([facility] Vital Signs ID Date Data Source UNK Name Value Range Interpretation Code Description Data Source(s) Body mass index (BMI) [Ratio] 46.0 kg/m2 46.0 k g/m2 [facility] ([facility] [place] body weight 160 [lb_av] 160 [lb_av] [facility] ([facility] Oxygen saturation in Arterial blood by Pulse oximetry 98 % 98 % [facility] ([facility] Body weight 311.38 [lb_av] 311.38 [lb_av] [facility] ([facility] Body height 69 [in_i] 69 [in_i] [facility] ([facility] 5'9" Respiratory rate 20 /min 20 /min [facility] ( [facility] Body temperature 96.4 [degF] 96.4 [degF] [facility] Heart rate 88 /min 88 /min [facility] Diastolic blood pressure 57 mm[Hg] 57 mm[Hg] [facility] recheck on left arm Systolic blood pressure 133 mm[Hg] 133 mm[Hg] M [facility] ([facility] recheck on left arm Diastolic blood pressure 61 mm[Hg] 61 mm[Hg] [facility] ([facility] right arm Systolic blood pressure 152 mm[Hg] 152 mm[Hg] M [facility] ([facility] right arm Body mass index (BMI) [Ratio] 45.7 kg/m2 45.7 k g/m2 [facility] ([facility] [place] body weight 160 [lb_av] 160 [lb_av] [facility] ([facility] Oxygen saturation in Arterial blood by Pulse oximetry 98 % 98 % [facility] ([facility] Body weight 309.38 [lb_av] 309.38 [lb_av] [facility] ([facility] Body height 69 [in_i] 69 [in_i] [facility] ([facility] 5'9" Respiratory rate 22 /min 22 /min [facility] ( [facility] Body temperature 97.7 [degF] 97.7 [degF] [facility] Heart rate 65 /min 65 /min [facility] Diastolic blood pressure 76 mm[Hg] 76 mm[Hg] [facility] Systolic blood pressure 143 mm[Hg] 143 mm[Hg] M [facility] ([facility] Diastolic blood pressure 60 mm[Hg] 60 mm[Hg] [facility] Systolic blood pressure 160 mm[Hg] 160 mm[Hg] M [facility] ([facility] Body mass index (BMI) [Ratio] 45.3 kg/m2 45.3 k g/m2 [facility] ([facility] [place] body weight 160 [lb_av] 160 [lb_av] [facility] ([facility] Oxygen saturation in Arterial blood by Pulse oximetry 97 % 97 % [facility] ([facility] Body weight 307.12 [lb_av] 307.12 [lb_av] [facility] ([facility] Body height 69 [in_i] 69 [in_i] [facility] ([facility] 5'9" Respiratory rate 18 /min 18 /min [facility] ( [facility] Body temperature 98.3 [degF] 98.3 [degF] [facility] ([facility] Heart rate 75 /min 75 /min [facility] ([facility] Diastolic blood pressure 59 mm[Hg] 59 mm[Hg] [facility] Systolic blood pressure 137 mm[Hg] 137 mm[Hg] [facility] ([facility] Body mass index (BMI) [Ratio] 46.2 kg/m2 46.2 k g/m2 [facility] ([facility] [place] body weight 160 [lb_av] 160 [lb_av] [facility] ([facility] Oxygen saturation in Arterial blood by Pulse oximetry 98 % 98 % [facility] ([facility] Body weight 312.75 [lb_av] 312.75 [lb_av] [facility] ([facility] Body height 69 [in_i] 69 [in_i] [facility] ([facility] 5'9" Respiratory rate 16 /min 16 /min [facility] ( [facility] Body temperature 97.8 [degF] 97.8 [degF] [facility] ([facility] Heart rate 70 /min 70 /min [facility] Diastolic blood pressure 65 mm[Hg] 65 mm[Hg] [facility] Systolic blood pressure 151 mm[Hg] 151 mm[Hg] [facility] ([facility] Diastolic blood pressure 67 mm[Hg] 67 mm[Hg] [facility] Systolic blood pressure 158 mm[Hg] 158 mm[Hg] [facility] ([facility] Body mass index (BMI) [Ratio] 41.1 kg/m2 41.1 k g/m2 [facility] ([facility]) Body height 71 [in_i] 71 [in_i] [facility] ([facility]) 5'11" Body weight 295.00 [lb_av] 295.00 [lb_av] [facility] ([facility]) Body temperature 98.3 [degF] 98.3 [degF] [facility] ([facility]) Oxygen saturation in Arterial blood by Pulse oximetry 95 % 95 % [facility] ([facility]) Respiratory rate 18 /min 18 /min [facility] ( [facility]) Heart rate 73 /min 73 /min [facility] ([facility]) Diastolic blood pressure 78 mm[Hg] 78 mm[Hg] [facility] ([facility]) Systolic blood pressure 172 mm[Hg] 172 mm[Hg] [facility] Systolic blood pressure 148 mm[Hg] 148 mm[Hg] [facility] Recheck Diastolic blood pressure 66 mm[Hg] 66 mm[Hg] [facility] Systolic blood pressure 153 mm[Hg] 153 mm[Hg] [facility] ([facility] Body mass index (BMI) [Ratio] 44.6 kg/m2 44.6 k g/m2 [facility] ([facility] Oxygen saturation in Arterial blood by Pulse oximetry 99 % 99 % [facility] ([facility] Body weight 302.00 [lb_av] 302.00 [lb_av] [facility] ([facility] Body height 69 [in_i] 69 [in_i] [facility] ([facility] 5'9" Respiratory rate 22 /min 22 /min [facility] ( [facility] Body temperature 97.1 [degF] 97.1 [degF] [facility] ([facility] Heart rate 79 /min 79 /min [facility] [facility] Diastolic blood pressure 65 mm[Hg] 65 mm[Hg] [facility] ([facility] Recheck
--- OUTSIDE RECORDS SUMMARY | 2020-05-15 11:21 | CCD | Continuity of Care Document ---
Author Author Saurabh FREDERICK PA Organization Unknown Address [address] [place] [address] Phone [phone] Care Team Providers Care Field Assessor Name Role Phone [facility] - Otolaryngology AUTM [phone] Darwin Stevenson MD AUTM [phone] [facility] AUTM [phone] Tani Mina MD AUTM Myke Covington AUTM [phone] Maty Barbour MD AUTM [phone] [facility] - Dermatology AUTM [phone] Problems Active Problems Provider Date Type 2 [...] CPT Code Status Date Vaccine Lot # 51281 Refused 04/18/2018 Prevnar 13 For Adults 86514 Refused 04/18/2018 Zoster (Shingles ) Vaccine (HZV), Recombinant, Subunit, Adjuvanted 87298 Refused 04/18/2018 Pneumococcal Vaccine 99790 Refused 04/18/2018 Boostrix (Tdap) Tetnus, Diphtheria Toxoids & Acellular Pertussis 52979 Refused 04/18/2018 Influenza Virus, quadravalent, preservative free,age [...] Flow Rate 487 Estimated Peak Flow Rate [place] Body Weight 160 lb BMI (Body Mass Index) 45.7 kg/m2 11/19/2019 11:30am BP Systolic 137 mmHg BP Diastolic 59 mmHg Heart Rate 75 /min Body Temperature 98.3 F Respiratory Rate 18 /min Height 69 inches 5'9" Weight 307.12 lb O2 % BldC Oximetry 97 % Peak Expiratory Flow Rate 489 Estimated Peak Flow Rate [place] Body Weight 160 lb BMI (Body Mass Index) 45.3 kg/m2 Results Description No Information Available Procedures Date Code Description Status 04/17/2018 [id number] Diabetic Foot Exam Completed Medical Devices Description [...] unspecified Geeta Velazquez PA-C Plan of Treatment 04/27/2020 - Maritza Frederick PA* E11.40 Type 2 diabetes mellitus with [...]
[2020-05-15 12:04] LABS: BASO # 0.1 10^3/uL (0.0-0.2); BASO % 0.4 % (0.0-1.0); EOS # 0.5 10^3/uL (0.0-0.5); EOS % 3.6 % (0.0-3.0); HEMATOCRIT 42.4 % (42.0-52.0); HEMOGLOBIN 13.9 g/dl (13.5-17.5); LYMPH # 1.2 10^3/uL (1.5-5.0); LYMPH % 9.3 % (24.0-44.0); MEAN CORPUSCULAR HEMOGLOBIN 30.9 pg (27.0-33.0); MEAN CORPUSCULAR HGB CONC 32.8 g/dl (32.0-36.5); MEAN CORPUSCULAR VOLUME 94.2 fl (80.0-96.0); MONO # 1.1 10^3/uL (0.0-0.8); MONO % 8.2 % (0.0-5.0); NEUTROPHILS # 10.1 10^3/uL (1.5-8.5); NEUTROPHILS % 78.1 % (36.0-66.0); PLATELET COUNT, AUTOMATED 320 10^3/uL (150-450); WHITE BLOOD COUNT 12.9 10^3/uL (4.0-10.0)
--- NOTE | 2020-05-15 12:18 | REP ---
INDICATION: cellulitis, rule out osteo. COMPARISON: Comparison left foot radiographs 13 May 2020.. TECHNIQUE: AP and lateral views are obtained. FINDINGS: AP and lateral views of the left foot demonstrate diffuse dorsal soft tissue swelling over the forefoot and midfoot extending up anterior to the distal tibia. Extensive vascular calcification is seen across the ankle. Plantar and Achilles calcaneal spurring are noted. The forefoot swelling is essentially unchanged from the 13 May 2020 study. No soft tissue gas is seen. No acute bony erosive change is observed.. No fracture or subluxation is seen. No opaque foreign body noted. IMPRESSION: Diffuse soft tissue swelling. No soft tissue gas, opaque foreign body, or acute bony erosive change is seen.. <Electronically signed by Tristan Loera > 05/15/20 [id number]
[2020-05-15 12:47] LABS: ERYTHROCYTE SEDIMENTATION RATE 60 mm/hr (0-20)
[2020-05-15 13:56] LABS: ALBUMIN 3.6 GM/DL (3.2-5.2); ALT/SGPT 29 U/L (12-78); BILIRUBIN,TOTAL 0.4 MG/DL (0.2-1.0); BLOOD UREA NITROGEN 33 MG/DL (7-18); C REACTIVE PROTEIN QUANTITATIV 5.07 MG/DL (0.00-0.30); CARBON DIOXIDE LEVEL 26 MEQ/L (21-32); CHLORIDE LEVEL 104 MEQ/L (98-107); GLOMERULAR FILTRATION RATE > 60.0 (>49); GLUCOSE, FASTING 245 MG/DL (70-100); POTASSIUM SERUM 4.5 MEQ/L (3.5-5.1); SODIUM LEVEL 137 MEQ/L (136-145); TOTAL PROTEIN 7.8 GM/DL (6.4-8.2)
[2020-05-15 14:44] LABS: RSV AMPLIFICATION NEGATIVE (NEGATIVE)
[2020-05-15] MEDS ORDERED: GLUCAGON INJ 1MG VIAL SC PRN (14:45)
[2020-05-15] MEDS ORDERED: DEXTROSE 50% 50 ML SYRINGE IV PRN (14:45)
[2020-05-15] MEDS ORDERED: traMADol 50 MG TAB PO PRN (14:45)
[2020-05-15] MEDS ORDERED: GLUCOSE 4GM CHEW TABLET PO PRN (14:45)
--- OUTSIDE RECORDS SUMMARY | 2020-05-15 14:53 | CCD ---
Author Author [facility] Organization [facility] Address Unknown Phone Unavailable Care Team Providers Care Trial Consultant Name Role Phone Natalia Schreiber MD Unavailable [...] M Geeta PA Unavailable Unavailable Pleskach, Kiersten MASTER LAY OUT SPECIALIST Unavailable Unavailable Pleskach, Kiersten MASTER LAY OUT SPECIALIST Unavailable Unavailable Pleskach, Kiersten MASTER LAY OUT SPECIALIST Unavailable Unavailable Pleskach, Kiersten MASTER LAY OUT SPECIALIST Unavailable Unavailable Pleskach, Kiersten MASTER LAY OUT SPECIALIST Unavailable Unavailable Pleskach, Kiersten MASTER LAY OUT SPECIALIST Unavailable Unavailable Pleskach, Kiersten MASTER LAY OUT SPECIALIST Unavailable Unavailable Pleskach, Kiersten MASTER LAY OUT SPECIALIST Unavailable Unavailable Pleskach, Kiersten MASTER LAY OUT SPECIALIST Unavailable Unavailable Pleskach, Kiersten MASTER LAY OUT SPECIALIST Unavailable Unavailable Pleskach, Kiersten MASTER LAY OUT SPECIALIST Unavailable Unavailable Pleskach, Kiersten MASTER LAY OUT SPECIALIST Unavailable Unavailable Pleskach, Kiersten MASTER LAY OUT SPECIALIST Unavailable Unavailable Pleskach, Kiersten MASTER LAY OUT SPECIALIST Unavailable Unavailable Pleskach, Kiersten MASTER LAY OUT SPECIALIST Unavailable Unavailable Pleskach, Kiersten MASTER LAY OUT SPECIALIST Unavailable Unavailable Pleskach, Kiersten MASTER LAY OUT SPECIALIST Unavailable Unavailable Pleskach, Kiersten MASTER LAY OUT SPECIALIST Unavailable Unavailable Pleskach, Kiersten MASTER LAY OUT SPECIALIST Unavailable Unavailable Pleskach, Kiersten MASTER LAY OUT SPECIALIST Unavailable Unavailable Pleskach, Kiersten MASTER LAY OUT SPECIALIST Unavailable Unavailable Pleskach, Kiersten MASTER LAY OUT SPECIALIST Unavailable Unavailable Pleskach, Kiersten MASTER LAY OUT SPECIALIST Unavailable Unavailable Pleskach, Kiersten MASTER LAY OUT SPECIALIST Unavailable Unavailable Pleskach, Kiersten MASTER LAY OUT SPECIALIST Unavailable Unavailable Pleskach, Kiersten MASTER LAY OUT SPECIALIST Unavailable Unavailable Pleskach, Kiersten MASTER LAY OUT SPECIALIST Unavailable Unavailable Pleskach, Kiersten MASTER LAY OUT SPECIALIST Unavailable Unavailable Pleskach, Kiersten MASTER LAY OUT SPECIALIST Unavailable Unavailable Petrancosta, Robeson Maritza PA-C Unavailable Unavailabl e Petrancosta, Robeson Maritza PA-C Unavailable Unavailabl e Petrancosta, Robeson Maritza PA-C Unavailable Unavailabl e Petrancosta, Robeson Maritza PA-C Unavailable Unavailabl e Petrancosta, Robeson Maritza PA-C Unavailable Unavailabl e Petrancosta, Robeson Maritza PA-C Unavailable Unavailabl e Petrancosta, Robeson Maritza PA-C Unavailable Unavailabl e Petrancosta, Robeson Maritza PA-C Unavailable Unavailabl e Petrancosta, Robeson Maritza PA-C Unavailable Unavailabl e Petrancosta, Robeson Maritza PA-C Unavailable Unavailabl e Petrancosta, Robeson Maritza PA-C Unavailable Unavailabl e Petrancosta, Robeson Maritza PA-C Unavailable Unavailabl e Petrancosta, Robeson Maritza PA-C Unavailable Unavailabl e Petrancosta, Robeson Maritza PA-C Unavailable Unavailabl e Petrancosta, Robeson Maritza PA-C Unavailable Unavailabl e Petrancosta, Robeson Maritza PA-C Unavailable Unavailabl e Petrancosta, Robeson Maritza PA-C Unavailable Unavailabl e Petrancosta, Robeson Maritza PA-C Unavailable Unavailabl e Petrancosta, Robeson Maritza PA-C Unavailable Unavailabl e Petrancosta, Robeson Maritza PA-C Unavailable Unavailabl e Petrancosta, Robeson Maritza PA-C Unavailable Unavailabl e Petrancosta, Robeson Maritza PA-C Unavailable Unavailabl e Petrancosta, Robeson Maritza PA-C Unavailable Unavailabl e RING, K [...] is protected by Article 27-F of the [facility] Public Health law. If you continue you may have access to information: Regarding HIV / AIDS; Provided by facilities licensed or operated by the [facility] Office of Mental Health; or Provided by the [facility] Office for People With Developmental Disabilities. If such information is present, then the following [facility] mandated warning applies: This information [...] law may result in a fine or fpc sentence or both. A general authorization for [...] Data Source(s ) Outpatient Attender: Kiersten Gustaf[facility] Main Office 05/12/2020 0 8:00:00 AM EST [facility] ([facility] Outpatient Attender: Maritza Cabrera PA-C Main Office 04/27/2020 08:15:00 AM EST [facility] ([facility] Outpatient Attender: Geeta BAILON Main Office 11/19/2019 11:30:00 AM EDT [facility] ([facility] Outpatient Attender: Geeta BAILON Main Office 10/04/2019 08:00:00 AM EDT [facility] ([facility] Outpatient 04/24/2019 02:43:00 PM EST [facility] Radiology Imaging Outpatient 04/21/2019 06:14:00 PM EST [facility] Radiology Imaging Outpatient Attender: VENANCIO Ovalles [facility] 04/01/2019 03:30:00 PM EST [facility] ([facility] Car [facility], [facility]) Outpatient Attender: Yareli [...] 04/03/2019 12:00:00 AM EST ORAL active [facility] ([facility]) Insurance Providers Payer name Policy type / Coverage type Policy ID Covered alliance party ID Covered alliance party's relationship to guzman Policy Guzman Plan Information AETNA MEDICARE [id number] SP [id number] AETNA MEDICARE [id number] SP [id number] EMEDNY [id number] SP [id number] MEDICARE BLUE PPO [id number] SP [id number] WELLCARE [id number] SP [id number] [facility] COMMUNITY PLAN [facility] [id number] SP [id number] GROUP HEALTH INSURANCE [id number] SP [id number] AETNA O [id number] S [id number] AETNA O [id number] S [id number] AETNA O [id number] S [id number] EXCELLUS BCBS B [id number] S [id number] [id number] Wellcare Commercial [id number] Self [id number] Blue Shield [facility] Advantage Commercial [id number] Self [id number] [facility] Medicare Commercial [id number] Self [id number] Wellcare Commercial [id number] Self [id number] Wellcare Today's Options Medigap Part B [id number] Self [id number] [facility] Community Plan Commercial [id number] Self [id number] [facility] MEDICARE DUAL G [id number] Self [id number] [facility] MEDICARE DUAL G [id number] Self [id number] [facility] COMMUNITY PLAN [facility] [id number] SP [id number] Ghi/Emblem HLTH (pr) Medigap Part B [id number] Self [id number] [facility] ([facility]) Commercial [id number] Self [id number] [facility] Community Plan Commercial [id number] Self [id number] [facility] Medicare Commercial [id number] Self [id number] [facility] Community Plan Commercial [id number] Self [id number] [facility] Medicare Commercial [id number] Self [id number] [facility] Community Plan Commercial [id number] Self [id number] [facility] Medicare Commercial [id number] Self [id number] [facility] COMMUNITY PLAN MCDO [id number] SP [id number] [facility] Community Plan Commercial Self [facility] Medicare Commercial Self [place] [id number] Self [id number] GHI U [id number] Self [id number] [facility] Commercial [facility] COMM PLAN KENZIE W [id number] S [id number] MEDICAID [id number] SP [id number] MEDICAID W [id number] S [id number] SELF PAY UNAVAILABLE SP UNAVAILA BLE GHI O [id number] S [id number] Problems, Conditions, and Diagnoses Code Display Name Description Problem Type Effective Dates Data Source(s) [id number] Intermittent claudication due to atheros clerosis of artery of limb Intermittent claudication due to atherosclerosis of artery of limb Problem 10/04/2019 12:00:00 AM EDT [facility] ([facility] Results ID Date Data Source [id number] 11/28/2019 12:00:[address] [facility] Sherrie Hernandez Patient Name: EDUIN [id number] [facility] 1950[facility] [place] [address] Date of Exam: 11/28/2019#: Fax: [phone] EXAM: [...] k g/m2 [facility] ([facility] [place] body weight 160 [lb_av] 160 [lb_av] MED[facility] [...] k g/m2 [facility] ([facility] [place] body weight 160 [lb_av] 160 [lb_av] MED[facility] [...] k g/m2 [facility] ([facility] [place] body weight 160 [lb_av] 160 [lb_av] MED[facility] [...] Systolic blood pressure 137 mm[Hg] 137 mm[Hg] M EDENT ([facility] Body mass index (BMI) [Ratio] 46.2 kg/m2 46.2 k g/m2 [facility] ([facility] [place] body weight 160 [lb_av] 160 [lb_av] [facility] [...] [facility].C.) Body temperature 97.8 [degF] 97.8 [degF] [facility] Heart rate 70 /min 70 /min [facility] ([facility] Diastolic blood pressure 65 mm[Hg] 65 mm[Hg] [facility] Systolic blood pressure 151 mm[Hg] 151 mm[Hg] [facility] ([facility] Diastolic blood pressure 67 mm[Hg] 67 mm[Hg] [facility] Systolic blood pressure 158 mm[Hg] 158 mm[Hg] [facility] ([facility] Body mass index (BMI) [Ratio] 41.1 kg/m2 41.1 k g/m2 [facility] ([facility]) Body height 71 [in_i] 71 [in_i] [facility] ([facility]) 5'11" Body weight 295.00 [lb_av] 295.00 [lb_av] [facility] T ([facility]) Body temperature 98.3 [degF] 98.3 [degF] [facility] ([facility]) Oxygen saturation in Arterial blood by Pulse oximetry 95 % 95 % [facility] ([facility]) Respiratory rate 18 /min 18 /min [facility] ( [facility]) Heart rate 73 /min 73 /min [facility] ([facility]) Diastolic blood pressure 78 mm[Hg] 78 mm[Hg] [facility] ([facility]) Systolic blood pressure 172 mm[Hg] 172 mm[Hg] [facility] ([facility]) Systolic blood pressure 148 mm[Hg] 148 mm[Hg] [facility] ([facility] Recheck Diastolic blood pressure 66 mm[Hg] 66 mm[Hg] [facility] ([facility] Systolic blood pressure 153 mm[Hg] 153 mm[Hg] M [facility] ([facility] [...]
--- NOTE | 2020-05-15 16:15 | HPEPDOC ---
General Date of Admission May 15, 2020 at 14:30 Date of Service: May 15, 2020 Attending Physician: JULIO PISANO DO Chief Complaint The patient is a 70-year-old male admitted with a reason for visit of Cellulitis. Source: Patient History of Present Illness Mr. Abdi is a 70 year old male with diabetes mellitus and cataracts who presents with left foot pain, swelling, and tenderness. A few months ago, patient dropped the chainsaw on his left foot. It cut through the shoe and created an ulcer on the lateral side of the fifth toe. He has been caring for it at home. About 2 weeks ago, he slid and crushed the toes of his left foot against the refrigerator. It created an open wound on the medial aspect of the big toe. He's been soaking his foot in Epsom salt bath. Since then, he developing pain, erythema, and tenderness to the left foot. He saw his PCP who started him on cephalexin. He started taking antibiotic on Monday. Today, symptoms have not improved and he came into the ED. Patient's vitals have been stable. He remains afebrile with no tachycardia or tachypnea. Workup was significant for leukocytosis of 12.9, ESR 60, CRP 5.07, and a x-ray of the left foot demonstrate diffuse soft tissue swelling. When I saw the patient, his foot was very tender to light touch. He has old scabs on the medial left toe and lateral left fifth toe. There is erythema of his foot with indiscernible margin. The left foot looked more swollen compared to the right. Patient will be admitted for failed outpatient treatment for diabetic foot infection. Home Medications Scheduled Brimonidine Tartrate (Brimonidine Tartrate) 0.2% 5ML Drops, 1 DROP OS BID, (Reported) Cephalexin (Cephalexin) 500 Mg Tablet, 500 MG PO QID, (Reported) Insulin NPH Human Isophane (Novolin N) 100 Unit/1 Ml Vial, 40 UNITS SC TID, (Reported) Insulin Regular, Human (Novolin R) 100 Unit/1 Ml Vial, 1 UNITS SC AC, (Reported) PER SLIDING SCALE Ketorolac Tromethamine (Ketorolac Tromethamine) 0.4% Drops, 1 DROP OS QID, (Reported) Lisinopril/Hydrochlorothiazide (Lisinopril-Hctz 20-12.5 mg Tab) 1 Each Tablet, 2 TAB PO DAILY, (Reported) Simvastatin (Simvastatin) 40 Mg Tablet, 40 MG PO DAILY, (Reported) Timolol Maleate (Timolol Maleate) 0.5% 5ML Drops, 1 DROP OS DAILY, (Reported) Allergies Coded Allergies: ibuprofen (Verified Allergy, Severe, anaphylaxis, 05/15/20) Iodinated Contrast Media (Verified Adverse Reaction, Unknown, nausea, 05/15/20) Past Medical History Medical History 1. Diabetes mellitus 2. Cataracts Surgical History 1. Multiple surgeries of the eyes (11 in total) Family History Father: Alive at the age of 86. Reports one stent but unsure where Mother: . History of diabetes mellitus and Parkinson's Social History * Smoker: former Smoker (quit 42 years ago) Alcohol: Denies Drugs: denies A-FIB/CHADSVASC A-FIB History Current/History of A-Fib/PAF?: No Review of Systems Constitutional: Denies: Chills, Fever Eyes: Denies: Vision change ENT: Denies: Head Aches Skin: Reports: Rash (Left leg erythema), Breakdown (Left foot: medial side of big toe and lateral side of 5th toe has scabbed over wounds. Dorsal side 2nd and 3rd toe has small ulcers) Pulmonary: Denies: Dyspnea, Cough Cardiovascular: Denies: Chest Pain, Palpitations Gastrointestinal: Denies: Nausea, Abdominal Pain, Diarrhea Genitourinary: Denies: Dysuria Hematologic: Denies: Bruising Musculoskeletal: Reports: Foot Pain (left foot) Neurological: Denies: Numbness Physical Examination General Exam: Positive: Alert, Cooperative Eye Exam: Positive: EOMI; Negative: Sclera icteric ENT Exam: Positive: Atraumatic Neck Exam: Positive: Supple Chest Exam: Positive: Diminished Heart Exam: Positive: Rate Normal, Regular Rhythm Abdomen Exam: Positive: Normal bowel sounds, Soft, Other (obese); Negative: Tenderness Extremity Exam: Positive: Edema (bilateral, but worse on left), Tenderness (Left leg) Skin Exam: Positive: Lesion (Left foot: medial side of big toe and lateral side of 5th toe has scabbed over wounds. Dorsal side 2nd and 3rd toe has small ulcers) Neuro Exam: Positive: Cranial Nerves 3-12 NL Psych Exam: Positive: Mental status NL, Mood NL Vital Signs Vital Signs Date Time Temp Pulse Resp B/P (MAP) Pulse Ox O2 Delivery O2 Flow Rate FiO2 05/15/20 15:04 96.6 84 20 142/65 (90) 97 Room Air Laboratory Data Labs 24H Laboratory Tests 2 05/15/20 11:46: Immature Granulocyte % (Auto) 0.4, Neutrophils (%) (Auto) 78.1H, Lymphocytes (%) (Auto) 9.3L, Monocytes (%) (Auto) 8.2H, Eosinophils (%) (Auto) 3.6H, Basophils (%) (Auto) 0.4, Neutrophils # (Auto) 10.1H, Lymphocytes # (Auto) 1.2L, Monocytes # (Auto) 1.1H, Eosinophils # (Auto) 0.5, Basophils # (Auto) 0.1, Nucleated Red Blood Cells % (auto) 0.0, Erythrocyte Sedimentation Rate 60H 05/15/20 13:14: Anion Gap 7L, Glomerular Filtration Rate > 60.0, Calcium Level 9.0, Magnesium Level 2.0, Total Bilirubin 0.4, Aspartate Amino Transf (AST/SGOT) 19, Alanine Aminotransferase (ALT/SGPT) 29, Alkaline Phosphatase 57, C-Reactive Protein, Quantitative 5.07H, Total Protein 7.8, Albumin 3.6, Albumin/Globulin Ratio 0.9 05/15/20 14:00: Coronavirus (COVID-19)(PCR) NEGATIVE, Influenza Type A (RT-PCR) NEGATIVE, Influenza Type B (RT-PCR) NEGATIVE, Respiratory Syncytial Virus (PCR) NEGATIVE CBC/BMP Laboratory Tests 05/15/20 11:46 05/15/20 13:14 Assessment/Plan Mr. Abdi is a 70 year old male with diabetes mellitus and cataracts who presents with left foot pain, swelling, and tenderness. Patient has a left foot diabetic foot infection of failed outpatient therapy with cephalexin. Will cover with broad-spectrum antibiotics. We'll order a ultrasound of the left leg to rule out DVT and MRI of the left foot to evaluate for osteomyelitis. Plan / VTE VTE Prophylaxis Ordered?: Yes Plan Plan 1. Left diabetic foot infection Failed outpatient therapy with cephalexin Start broad-spectrum antibiotics Ultrasound of left leg to rule DVT MRI of left foot to evaluate for osteomyelitis Pain control with acetaminophen and tramadol 2. Insulin-dependent diabetes mellitus We will continue with his Insulin NPO 40 units with meals Added on FSBS ACHS and sliding scale insulin with meals We will check an HbA1c 3. Cataracts We will continue his eyedrops 4. Hypertension We will continue his lisinopril and hydrochlorothiazide 5. Hyperlipidemia Continue simvastatin 6. DVT prophylaxis Lovenox Disposition: Pending results from MRI and ultrasound and response to antibiotics JULIO PISANO DO May 15, 2020 16:15
[2020-05-15] MEDS ORDERED: VANCOMYCIN HCL 1,000 MG, VIAL MATE ADAPTER 1 EACH in D5W 250 ML IV ONE (17:00)
--- NOTE | 2020-05-15 17:33 | REPVR ---
PROCEDURE INFORMATION: Exam: US Duplex Left Lower Extremity Veins, Limited Exam date and time: 05/15/2020 5:07 PM Age: 70 years old Clinical indication: Edema, localized; Lower extremity, left; Additional info: Leg swelling and erythema, looking for dvt TECHNIQUE: Imaging protocol: Real-time Duplex ultrasound of the Left Lower Extremity with 2-D anne scale, color Doppler flow and spectral waveform analysis with image documentation. Limited exam focused on the left lower extremity veins. COMPARISON: No relevant prior studies available. FINDINGS: Left deep veins: Unremarkable. The common femoral, femoral, proximal profunda femoral and popliteal veins are patent without thrombus. Normal Doppler waveforms. Normal compressibility and/or augmentation response. Left superficial veins: Unremarkable. Saphenofemoral junction is patent without thrombus. Limitations: Technically limited study because of patient body habitus. Soft tissues: Unremarkable. IMPRESSION: No sonographic evidence of deep vein thrombosis. Electronically signed by: Rocio Kothari On 05/15/2020 17:32:51 PM
[2020-05-15] MEDS: PIPERACILLIN/TAZOBACTAM SOD 4.5 GM in D5W MINI-BAG PLUS 50 ML IV SCH (17:36)
[2020-05-15] MEDS ORDERED: PROHANCE 279.3MG/ML 5ML VIAL As Ordered ONE (21:51)
[2020-05-15] MEDS ORDERED: PROHANCE 279.3MG/ML 15ML VIAL As Ordered ONE (21:52)
[2020-05-15] MEDS: VANCOMYCIN HCL 1,000 MG, VIAL MATE ADAPTER 1 EACH in D5W 250 ML IV SCH (22:19)
--- NOTE | 2020-05-15 22:35 | REPVR ---
PROCEDURE INFORMATION: Exam: MR Left Lower Extremity Other Than Joint Without and With Contrast; Foot Exam date and time: 05/15/2020 10:00 PM Age: 70 years old Clinical indication: Condition or disease; Other: Diabetic foot infection, concern for osteomyelitis; Patient HX: PT states pain and swelling to toes TECHNIQUE: Imaging protocol: MR of the Left lower extremity without and with intravenous contrast. Exam focused on the foot. Contrast material: PROHANCE; Contrast volume: 20 ml; Contrast route: INTRAVENOUS (IV); COMPARISON: NV Foot, Ap, Lat LEFT 05/15/2020 12:08 PM FINDINGS: Limitations: Motion artifact degrades the image quality of several sequences obtained. Bones and cartilage: There is bone marrow edema and enhancement involving the head of the left 5th metatarsal and to a lesser extent in the heads of the left 3rd and 4th metatarsals. No bony destructive changes are noted. There is no fracture or dislocation. There is mild osteoarthritis involving the left 1st metatarsophalangeal joint and the interphalangeal joint of the left great toe. Joint spaces: There is a small left 1st metatarsophalangeal joint effusion. LIGAMENTS: Anterior talofibular ligament: The anterior talofibular ligament is intact. Posterior talofibular ligament: The posterior talofibular ligament is intact. Calcaneofibular ligament: The calcaneofibular ligament is intact. Deltoid ligament complex: The deltoid ligament complex is intact. Spring ligament complex: The spring ligament complex is intact. Lisfranc ligament: The Lisfranc ligament is intact. Collateral ligaments of digits: The collateral ligaments of the toes are intact. TENDONS: Flexor tendons of foot: The flexor tendons are intact. No tendinosis. No tenosynovitis. Tibialis posterior tendon: The tibialis posterior tendon is intact. No tendinosis. No tenosynovitis. Peroneal tendons: The peroneal tendons are intact. No tendinosis. No tenosynovitis. Extensor tendons of foot: The extensor tendons are intact. No tendinosis. No tenosynovitis. Tibialis anterior tendon: The tibialis anterior tendon is intact. No tendinosis. No tenosynovitis. Achilles tendon: The Achilles tendon is intact. No tendinosis. No peritendinitis. Tarsal canal (Sinus tarsi): The roots of the inferior extensor retinaculum, cervical ligament, and interosseous talocalcaneal ligament are intact. No replacement of the normal fatty signal in the sinus tarsi is noted to suggest a sinus tarsi syndrome. Tarsal tunnel: The tarsal tunnel is unremarkable. Muscles: There is denervation edema involving the muscles of the left foot. Soft tissues: There is soft tissue swelling and edema in the subcutaneous tissues around the left ankle and in the dorsal aspect of the left midfoot and forefoot. No drainable rim enhancing soft tissue fluid collection is noted to suggest an abscess. No gas is seen in the soft tissues. Plantar fascia: The plantar fascia is intact. No evidence for plantar fasciitis or plantar fibromatosis. Plantar plates: Intact. IMPRESSION: 1. Bone marrow edema and enhancement involving the head of the left 5th metatarsal and to a lesser extent in the heads of the left 3rd and 4th metatarsals, which may represent early osteomyelitis, reactive osteitis, or may be posttraumatic in nature. 2. Soft tissue swelling and edema around the left ankle and dorsal aspect of the left midfoot and forefoot, which may represent cellulitis or lymphedema. No abscess. Electronically signed by: Chris Sullivan On 05/15/2020 22:35:22 PM
[2020-05-15 22:50] VITALS: BP 147/60
[2020-05-15] MEDS: HumaLOG INSULIN (NovoLOG) PER UNIT SC SCH ×2 (22:55→23:19)
[2020-05-15] MEDS: KETOROLAC 0.5% OPHTH SOLN OS SCH ×2 (22:56→23:18)
[2020-05-15] MEDS: ACETAMINOPHEN TAB 650MG DOSE (2X325MG) PO PRN (23:18)
[2020-05-15] MEDS: BRIMONIDINE 0.1% OPHTH SOLN 5 ML OS SCH (23:18)
[2020-05-15] MEDS: HumuLIN N INSULIN (NovoLIN N) PER UNIT SC SCH (23:19)
[2020-05-16] MEDS: PIPERACILLIN/TAZOBACTAM SOD 4.5 GM in D5W MINI-BAG PLUS 50 ML IV SCH ×3 (00:16→16:25)
[2020-05-16] MEDS: VANCOMYCIN HCL 1,000 MG, VIAL MATE ADAPTER 1 EACH in D5W 250 ML IV SCH ×3 (05:22→20:45)
[2020-05-16 06:12] VITALS: BP 134/53
[2020-05-16 06:59] LABS: HEMATOCRIT 40.2 % (42.0-52.0); HEMOGLOBIN 13.2 g/dl (13.5-17.5); MEAN CORPUSCULAR HEMOGLOBIN 30.7 pg (27.0-33.0); MEAN CORPUSCULAR HGB CONC 32.8 g/dl (32.0-36.5); MEAN CORPUSCULAR VOLUME 93.5 fl (80.0-96.0); PLATELET COUNT, AUTOMATED 292 10^3/uL (150-450); WHITE BLOOD COUNT 10.9 10^3/uL (4.0-10.0)
[2020-05-16 07:17] LABS: HEMOGLOBIN A1c 7.2 %
[2020-05-16 07:25] LABS: BLOOD UREA NITROGEN 28 MG/DL (7-18); CARBON DIOXIDE LEVEL 25 MEQ/L (21-32); CHLORIDE LEVEL 103 MEQ/L (98-107); CREATININE FOR GFR 1.19 MG/DL (0.70-1.30); GLOMERULAR FILTRATION RATE > 60.0 (>49); GLUCOSE, FASTING 205 MG/DL (70-100); POTASSIUM SERUM 3.5 MEQ/L (3.5-5.1); SODIUM LEVEL 138 MEQ/L (136-145)
[2020-05-16] MEDS: HumuLIN N INSULIN (NovoLIN N) PER UNIT SC SCH ×3 (07:50→18:20)
[2020-05-16] MEDS: HumaLOG INSULIN (NovoLOG) PER UNIT SC SCH ×4 (07:50→20:46)
[2020-05-16 07:55] LABS: ERYTHROCYTE SEDIMENTATION RATE 53 mm/hr (0-20)
[2020-05-16] MEDS: KETOROLAC 0.5% OPHTH SOLN OS SCH ×4 (07:57→20:47)
[2020-05-16] MEDS: BRIMONIDINE 0.1% OPHTH SOLN 5 ML OS SCH ×2 (07:57→20:47)
[2020-05-16] MEDS ORDERED: POTASSIUM CHLORIDE 10 MEQ SR TABLET PO ONE (09:00)
[2020-05-16] MEDS: TIMOLOL MALEATE 0.5% OPHTH SOLN 5 ML OS SCH (09:37)
[2020-05-16] MEDS: ENOXAPARIN 40MG/0.4ML SYRINGE (J1650 PER 10MG) SC SCH (09:37)
[2020-05-16] MEDS: SIMVASTATIN 40 MG TAB PO SCH (09:39)
[2020-05-16] MEDS: hydroCHLOROthiazide 25 MG TAB PO SCH (09:40)
[2020-05-16] MEDS: lisinopriL 40 MG TAB PO SCH (09:40)
[2020-05-16 14:00] VITALS: BP 142/55
--- NOTE | 2020-05-16 16:11 | CR ---
CONSULTATION DATE: 05/16/2020 REASON FOR CONSULTATION: Left foot infection. HISTORY OF PRESENT ILLNESS: Mr. Abdi is a 70-year-old diabetic male who presents to [facility] with worsening left foot infection. He had injury to his left foot. He dropped a chain saw on his boot and got a small cut on his left fifth toe, he states a few months ago. He states this had been healing. He then notes another injury of kicking his foot into the wall, scraping the top of his toes. He was seen by his primary doctor, was given oral antibiotics without improvement. Redness and pain worsened and he was brought to the hospital. He was started on empiric antibiotics. He states he feels a little bit better than yesterday. PAST MEDICAL HISTORY: Significant for diabetes, cataracts. SURGICAL HISTORY: Includes eye surgeries. FAMILY HISTORY: Diabetes. SOCIAL HISTORY: Former smoker, denies alcohol. ALLERGIES: CONTRAST DYE AND IBUPROFEN. REVIEW OF SYSTEMS: He denies nausea, vomiting, fever or chills. Vitals: T-max 98.1. LABORATORY DATA: White blood cell count on admission 12.9, today it is 10.9. ESR on admission 60, today is 53. CRP on admission was 5.07, hemoglobin A1c 7.2. IMAGING STUDIES: Reviewed. Foot x-ray shows swelling, no soft tissue gas, no bony erosion. MRI: Some bone edema at the fifth metatarsal and third and fourth metatarsal heads, no erosive changes. Lower extremity examination: There is erythema and edema of the entire left foot. There are ulcerations on the dorsal first, second, third and fifth toes with some eschar. There is no fluctuance underneath. No purulent drainage is noted. ASSESSMENT: This is a 70-year-old diabetic male with left foot cellulitis and ulcerations. PLAN: Continue empiric antibiotics. I do not believe there is osteomyelitis in the foot. We will order an arterial ultrasound given eschar and nonpalpable pulses. Patient unlikely to require surgical intervention this admission. We will follow.
--- NOTE | 2020-05-16 19:24 | IPNPDOC ---
Subjective Date Seen The patient was seen on 05/16/20. Subjective Chief Complaint/HPI Mr. Abdi is a 70 year old male with diabetes mellitus and cataracts who presents with left foot cellulitis. This morning, the erythema and tenderness improved. Spoke with podiatry. No osteomyelitis on MRI. Recommending arterial study which can be done on Monday. Otherwise, patient denies any chest pain or dyspnea. Objective Physical Examination General Exam: Positive: Alert, Cooperative Eye Exam: Positive: EOMI; Negative: Sclera icteric ENT Exam: Positive: Atraumatic Neck Exam: Positive: Supple Chest Exam: Positive: Diminished Heart Exam: Positive: Rate Normal, Regular Rhythm Abdomen Exam: Positive: Normal bowel sounds, Soft, Other (obese); Negative: Tenderness Extremity Exam: Positive: Edema (bilateral, but worse on left), Tenderness (Left leg) Skin Exam: Positive: Lesion (Left foot: medial side of big toe and lateral side of 5th toe has scabbed over wounds. Dorsal side 2nd and 3rd toe has small ulcers) Neuro Exam: Positive: Cranial Nerves 3-12 NL Psych Exam: Positive: Mental status NL, Mood NL Assessment /Plan Assessment Mr. Abdi is a 70 year old male with diabetes mellitus and cataracts who presents with left foot pain, swelling, and tenderness. Patient has a left foot diabetic foot infection of failed outpatient therapy with cephalexin. Will cover with broad-spectrum antibiotics. US of leg negative for DVT. MRI of foot negative for osteomyelitis. Podiatry recommending arterial study which can be done on Monday. Plan/VTE VTE Prophylaxis Ordered?: Yes Plan 1. Left diabetic foot infection Failed outpatient therapy with cephalexin Start broad-spectrum antibiotics Ultrasound of left leg negative for DVT MRI of left foot negative for osteomyelitis Pain control with acetaminophen and tramadol -Podiatry consulted, recommending arterial study which can be done on Monday 2. Insulin-dependent diabetes mellitus We will continue with his Insulin NPO 40 units with meals Added on FSBS ACHS and sliding scale insulin with meals HbA1c 7.2 3. Cataracts We will continue his eyedrops 4. Hypertension We will continue his lisinopril and hydrochlorothiazide 5. Hyperlipidemia Continue simvastatin 6. DVT prophylaxis Lovenox Disposition: Podiatry recommending arterial study which can be done on Monday VS, I&O, 24H, Fishbone Vital Signs/I&O Vital Signs Date Time Temp Pulse Resp B/P (MAP) Pulse Ox O2 Delivery O2 Flow Rate FiO2 05/16/20 14:00 97.3 74 18 142/55 (84) 100 Room Air I&O- Last 24 Hours up to 6 AM 05/16/20 06:00 Intake Total 640 ml Output Total 0 ml Balance 640 ml Laboratory Data 24H LABS Laboratory Tests 2 05/15/20 19:30: Bedside Glucose (Misc Panel) 242H 05/15/20 22:37: Bedside Glucose (Misc Panel) 287H 05/16/20 06:35: Nucleated Red Blood Cells % (auto) 0.0, Erythrocyte Sedimentation Rate 53H, Anion Gap 10, Glomerular Filtration Rate > 60.0, Estimated Mean Plasma Glucose 160H, Hemoglobin A1c 7.2, Calcium Level 9.0 05/16/20 11:30: Bedside Glucose (Misc Panel) 178H 05/16/20 16:26: Bedside Glucose (Misc Panel) 265H CBC/BMP Laboratory Tests 05/16/20 06:35 JULIO PISANO DO May 16, 2020 19:24
[2020-05-16] MEDS: ACETAMINOPHEN TAB 650MG DOSE (2X325MG) PO PRN (20:46)
[2020-05-16 22:00] VITALS: BP 179/65
[2020-05-17] MEDS: PIPERACILLIN/TAZOBACTAM SOD 4.5 GM in D5W MINI-BAG PLUS 50 ML IV SCH ×3 (00:36→16:50)
[2020-05-17] MEDS: VANCOMYCIN HCL 1,000 MG, VIAL MATE ADAPTER 1 EACH in D5W 250 ML IV SCH ×3 (04:11→21:07)
[2020-05-17 04:16] LABS: HEMATOCRIT 40.3 % (42.0-52.0); HEMOGLOBIN 13.5 g/dl (13.5-17.5); MEAN CORPUSCULAR HEMOGLOBIN 31.3 pg (27.0-33.0); MEAN CORPUSCULAR HGB CONC 33.5 g/dl (32.0-36.5); MEAN CORPUSCULAR VOLUME 93.5 fl (80.0-96.0); PLATELET COUNT, AUTOMATED 288 10^3/uL (150-450); RED BLOOD COUNT 4.31 10^6/uL (4.30-6.10); WHITE BLOOD COUNT 10.5 10^3/uL (4.0-10.0)
[2020-05-17] MEDS: ACETAMINOPHEN TAB 650MG DOSE (2X325MG) PO PRN (04:19)
[2020-05-17 04:41] LABS: BLOOD UREA NITROGEN 26 MG/DL (7-18); CALCIUM LEVEL 9.2 MG/DL (8.8-10.2); CARBON DIOXIDE LEVEL 26 MEQ/L (21-32); CHLORIDE LEVEL 103 MEQ/L (98-107); CREATININE FOR GFR 1.16 MG/DL (0.70-1.30); GLOMERULAR FILTRATION RATE > 60.0 (>49); GLUCOSE, FASTING 203 MG/DL (70-100); SODIUM LEVEL 138 MEQ/L (136-145); VANCOMYCIN LEVEL TROUGH 17.3 UG/ML (10.0-20.0)
[2020-05-17 04:46] LABS: ERYTHROCYTE SEDIMENTATION RATE 58 mm/hr (0-20)
[2020-05-17 06:24] VITALS: BP 176/62
[2020-05-17] MEDS: SIMVASTATIN 40 MG TAB PO SCH (08:00)
[2020-05-17] MEDS: lisinopriL 40 MG TAB PO SCH (08:00)
[2020-05-17] MEDS: hydroCHLOROthiazide 25 MG TAB PO SCH (08:01)
[2020-05-17] MEDS: ENOXAPARIN 40MG/0.4ML SYRINGE (J1650 PER 10MG) SC SCH (08:01)
[2020-05-17] MEDS: HumuLIN N INSULIN (NovoLIN N) PER UNIT SC SCH ×3 (08:02→17:39)
[2020-05-17] MEDS: HumaLOG INSULIN (NovoLOG) PER UNIT SC SCH ×4 (08:03→21:20)
[2020-05-17] MEDS: KETOROLAC 0.5% OPHTH SOLN OS SCH ×4 (08:03→21:07)
[2020-05-17] MEDS: TIMOLOL MALEATE 0.5% OPHTH SOLN 5 ML OS SCH (08:04)
[2020-05-17] MEDS: BRIMONIDINE 0.1% OPHTH SOLN 5 ML OS SCH ×2 (08:04→21:07)
--- NOTE | 2020-05-17 10:05 | IPN ---
PROGRESS NOTE DATE: 05/17/2020 SUBJECTIVE: The patient is seen and examined. He is resting comfortably. He states his pain is a little bit improved compared to yesterday, but still sore. LABORATORY DATA: Labs are reviewed. White blood cell count is 10.5. Erythrocyte sedimentation rate (ESR) is 58. LOWER EXTREMITY EXAMINATION: Ulcerations unchanged. Erythema slightly improved compared to yesterday's exam. ASSESSMENT: A 70-year-old diabetic male with left foot ulcerations and cellulitis. PLAN: Continue empiric antibiotics. Await arterial studies.
[2020-05-17 14:00] VITALS: BP 156/57
--- NOTE | 2020-05-17 15:12 | IPNPDOC ---
Subjective Date Seen The patient was seen on 05/17/20. Subjective Chief Complaint/HPI Mr. Abdi is a 70 year old male with diabetes mellitus and cataracts who presents with left foot cellulitis. This morning, he bumped his left foot against the door again. He does not have good proprioception with that foot. Requested PT to see if they could help him protect his left foot against obstacles. Otherwise denied chest pain, dyspnea, or abdominal pain. Foot still swollen and erythematous Objective Physical Examination General Exam: Positive: Alert, Cooperative Eye Exam: Positive: EOMI; Negative: Sclera icteric ENT Exam: Positive: Atraumatic Neck Exam: Positive: Supple Chest Exam: Positive: Diminished Heart Exam: Positive: Rate Normal, Regular Rhythm Abdomen Exam: Positive: Normal bowel sounds, Soft, Other (obese); Negative: Tenderness Extremity Exam: Positive: Edema (bilateral, but worse on left), Tenderness (Left leg) Skin Exam: Positive: Lesion (Left foot: medial side of big toe and lateral side of 5th toe has scabbed over wounds. Dorsal side 2nd and 3rd toe has small ulcers) Neuro Exam: Positive: Cranial Nerves 3-12 NL Psych Exam: Positive: Mental status NL, Mood NL Assessment /Plan Assessment Mr. Abdi is a 70 year old male with diabetes mellitus and cataracts who presents with left foot pain, swelling, and tenderness. Patient has a left foot diabetic foot infection of failed outpatient therapy with cephalexin. Will cover with broad-spectrum antibiotics. US of leg negative for DVT. MRI of foot negative for osteomyelitis. Podiatry recommending arterial study which can be done on Monday. Otherwise, he continues to bump his left foot into objects. Requested PT to see if they have help protect his foot while ambulating. Plan/VTE VTE Prophylaxis Ordered?: Yes Plan 1. Left diabetic foot infection Failed outpatient therapy with cephalexin Start broad-spectrum antibiotics Ultrasound of left leg negative for DVT MRI of left foot negative for osteomyelitis Pain control with acetaminophen and tramadol -Podiatry consulted, recommending arterial study which can be done on Monday -PT consulted for poor proprioception of left foot 2. Insulin-dependent diabetes mellitus We will continue with his Insulin NPO 40 units with meals Added on FSBS ACHS and sliding scale insulin with meals HbA1c 7.2 3. Cataracts We will continue his eyedrops 4. Hypertension We will continue his lisinopril and hydrochlorothiazide 5. Hyperlipidemia Continue simvastatin 6. DVT prophylaxis Lovenox Disposition: Podiatry recommending arterial study which can be done on Monday. PT to see patient about poor proprioception VS, I&O, 24H, Fishbone Vital Signs/I&O Vital Signs Date Time Temp Pulse Resp B/P (MAP) Pulse Ox O2 Delivery O2 Flow Rate FiO2 05/17/20 14:00 97.7 90 18 156/57 (90) 99 Room Air I&O- Last 24 Hours up to 6 AM 05/17/20 06:00 Intake Total 1740 ml Output Total 0 ml Balance 1740 ml Laboratory Data 24H LABS Laboratory Tests 2 05/16/20 16:26: Bedside Glucose (Misc Panel) 265H 05/16/20 20:04: Bedside Glucose (Misc Panel) 265H 05/17/20 04:09: Nucleated Red Blood Cells % (auto) 0.0, Erythrocyte Sedimentation Rate 58H, Anion Gap 9, Glomerular Filtration Rate > 60.0, Calcium Level 9.2, Vancomycin Level Trough 17.3 05/17/20 11:27: Bedside Glucose (Misc Panel) 261H CBC/BMP Laboratory Tests 05/17/20 04:09 JULIO PISANO DO May 17, 2020 15:12
[2020-05-17 22:00] VITALS: BP 139/48
[2020-05-18] MEDS: PIPERACILLIN/TAZOBACTAM SOD 4.5 GM in D5W MINI-BAG PLUS 50 ML IV SCH ×3 (01:02→18:39)
[2020-05-18 06:00] VITALS: BP 171/75
[2020-05-18] MEDS: VANCOMYCIN HCL 1,000 MG, VIAL MATE ADAPTER 1 EACH in D5W 250 ML IV SCH ×2 (06:01→17:36)
[2020-05-18 06:41] LABS: HEMATOCRIT 40.3 % (42.0-52.0); HEMOGLOBIN 13.6 g/dl (13.5-17.5); MEAN CORPUSCULAR HEMOGLOBIN 31.4 pg (27.0-33.0); MEAN CORPUSCULAR HGB CONC 33.7 g/dl (32.0-36.5); MEAN CORPUSCULAR VOLUME 93.1 fl (80.0-96.0); PLATELET COUNT, AUTOMATED 297 10^3/uL (150-450); RED BLOOD COUNT 4.33 10^6/uL (4.30-6.10); WHITE BLOOD COUNT 10.6 10^3/uL (4.0-10.0)
[2020-05-18 07:03] LABS: BLOOD UREA NITROGEN 24 MG/DL (7-18); CARBON DIOXIDE LEVEL 24 MEQ/L (21-32); CHLORIDE LEVEL 103 MEQ/L (98-107); CREATININE FOR GFR 1.25 MG/DL (0.70-1.30); GLOMERULAR FILTRATION RATE > 60.0 (>49); GLUCOSE, FASTING 264 MG/DL (70-100); POTASSIUM SERUM 4.3 MEQ/L (3.5-5.1); SODIUM LEVEL 137 MEQ/L (136-145)
[2020-05-18] MEDS: HumuLIN N INSULIN (NovoLIN N) PER UNIT SC SCH ×3 (08:00→17:35)
[2020-05-18] MEDS: lisinopriL 40 MG TAB PO SCH (08:33)
[2020-05-18] MEDS: hydroCHLOROthiazide 25 MG TAB PO SCH (08:33)
[2020-05-18] MEDS: SIMVASTATIN 40 MG TAB PO SCH (08:33)
[2020-05-18] MEDS: KETOROLAC 0.5% OPHTH SOLN OS SCH ×4 (08:35→20:45)
[2020-05-18] MEDS: TIMOLOL MALEATE 0.5% OPHTH SOLN 5 ML OS SCH (08:35)
[2020-05-18] MEDS: BRIMONIDINE 0.1% OPHTH SOLN 5 ML OS SCH ×2 (08:35→20:46)
[2020-05-18] MEDS: HumaLOG INSULIN (NovoLOG) PER UNIT SC SCH ×4 (08:35→20:45)
[2020-05-18] MEDS: ENOXAPARIN 40MG/0.4ML SYRINGE (J1650 PER 10MG) SC SCH (08:36)
[2020-05-18 08:43] LABS: ERYTHROCYTE SEDIMENTATION RATE 47 mm/hr (0-20)
--- NOTE | 2020-05-18 10:51 | REP ---
INDICATION: PVD with right foot ulcers. COMPARISON: None. TECHNIQUE: Bilateral lower extremity arterial Doppler ultrasound. FINDINGS: Ankle brachial indices could not be accomplished on either leg because of noncompressible vessels. Extensive vascular calcification moderate plaquing is seen bilaterally. No stenosis greater than 50% seen on the right. Left leg atherosclerotic disease is more severe. The left superficial femoral artery was not seen proximally with revascularization mid and distal. Very slow flow through the remainder of the vessels in the left lower extremity. No flow seen in the posterior tibial or tibial-peroneal trunk and a small anterior tibial is the only vessel seen feeding the foot. Monophasic arterial waveforms are noted throughout the left leg. Monophasic waveforms are noted at and distal to the tibial-peroneal trunk on the right. Velocity chart right lower extremity arteries: Right SENIOR WAREHOUSE CLERK PSV 126 cm/S Profundal 113 Proximal SFA 155 Mid SFA 93/160 Distal SFA 102 Popliteal 140 Proximal PARESH 113 Tibial-peroneal trunk 102 Proximal COMMUNICATIONS CONTROLLER 28 Distal COMMUNICATIONS CONTROLLER 31 Distal PARESH 81 Left lower extremity arterial Doppler velocity chart: Left SENIOR WAREHOUSE CLERK PSV 92 cm/S Profundal 81 Proximal SFA no flow seen Mid SFA revascularized flow a 10 cm/S Distal SFA 48 Popliteal 13 Proximal PARESH 36 Tibial-peroneal trunk not seen Proximal COMMUNICATIONS CONTROLLER not seen Distal COMMUNICATIONS CONTROLLER no flow Distal PARESH 10 IMPRESSION: Atherosclerotic disease as noted above. Proximal SFA, tibial-peroneal trunk, and posterior tibial artery occlusions on the left with slow flow in the left anterior tibial. <Electronically signed by Tristan Loera > 05/18/20 [id number]
[2020-05-18 14:00] VITALS: BP 158/75
[2020-05-18] MEDS ORDERED: LIDOCAINE 1% MDV 20ML VIAL As Ordered ONE (14:25)
[2020-05-18] MEDS ORDERED: SODIUM CHLORIDE 0.9% INJ 10 ML SYR IV PRN (17:00)
[2020-05-18] MEDS: SODIUM CHLORIDE 0.9% INJ 10 ML SYR IV SCH (17:36)
[2020-05-18 20:49] VITALS: BP 161/74
--- NOTE | 2020-05-18 21:21 | IPNPDOC ---
Subjective Date Seen The patient was seen on 05/18/20. Subjective Chief Complaint/HPI Mr. Abdi is a 70 year old male with diabetes mellitus and cataracts who presents with left foot cellulitis. He tells me he keeps bumping his left foot against objects. Otherwise denies chest pain or dyspnea. Foot is now mostly tending around the heel. He says he has a bone spur there. Otherwise, Dr. Fabian is recommending vascular surgery for "proximal SFA, tibial-peroneal trunk, and posterior tibial artery occlusions on the left with slow flow in the left anterior tibial" from vascular study. Objective Physical Examination General Exam: Positive: Alert, Cooperative Eye Exam: Positive: EOMI; Negative: Sclera icteric ENT Exam: Positive: Atraumatic Neck Exam: Positive: Supple Chest Exam: Positive: Diminished Heart Exam: Positive: Rate Normal, Regular Rhythm Abdomen Exam: Positive: Normal bowel sounds, Soft, Other (obese); Negative: Tenderness Extremity Exam: Positive: Edema (bilateral, but worse on left), Tenderness (Left leg) Skin Exam: Positive: Lesion (Left foot: medial side of big toe and lateral side of 5th toe has scabbed over wounds. Dorsal side 2nd and 3rd toe has small ulcers) Neuro Exam: Positive: Cranial Nerves 3-12 NL Psych Exam: Positive: Mental status NL, Mood NL Assessment /Plan Assessment Mr. Abdi is a 70 year old male with diabetes mellitus and cataracts who presents with left foot pain, swelling, and tenderness. Patient has a left foot diabetic foot infection of failed outpatient therapy with cephalexin. Will cover with broad-spectrum antibiotics. US of leg negative for DVT. MRI of foot negative for osteomyelitis. Podiatry recommending arterial study. Study demonstrates "proximal SFA, tibial-peroneal trunk, and posterior tibial artery occlusions on the left with slow flow in the left anterior tibial". Podiatry consulted vascular surgery. Recommendations appreciated. Plan/VTE VTE Prophylaxis Ordered?: Yes Plan 1. Left diabetic foot infection Failed outpatient therapy with cephalexin Start broad-spectrum antibiotics Ultrasound of left leg negative for DVT MRI of left foot negative for osteomyelitis Pain control with acetaminophen and tramadol -Podiatry consulted, recommending arterial study. Demonstrated "proximal SFA, tibial-peroneal trunk, and posterior tibial artery occlusions on the left with slow flow in the left anterior tibial" -Podiatry consulted vascular surgery, recommendations appreciated. 2. Insulin-dependent diabetes mellitus We will continue with his Insulin NPO 40 units with meals Added on FSBS ACHS and sliding scale insulin with meals HbA1c 7.2 3. Cataracts We will continue his eyedrops 4. Hypertension We will continue his lisinopril and hydrochlorothiazide 5. Hyperlipidemia Continue simvastatin 6. DVT prophylaxis Lovenox Disposition: Podiatry consulted vascular surgery. Pending recommendations. VS, I&O, 24H, Fishbone Vital Signs/I&O Vital Signs Date Time Temp Pulse Resp B/P (MAP) Pulse Ox O2 Delivery O2 Flow Rate FiO2 05/18/20 20:49 97.7 75 18 161/74 (103) 96 Room Air I&O- Last 24 Hours up to 6 AM0 05/18/20 06:00 Intake Total 2020 ml Output Total 0 ml Balance 2020 ml Laboratory Data 24H LABS Laboratory Tests 2 05/18/20 06:14: Nucleated Red Blood Cells % (auto) 0.0, Erythrocyte Sedimentation Rate 47H, Anion Gap 10, Glomerular Filtration Rate > 60.0, Calcium Level 9.0 05/18/20 11:28: Bedside Glucose (Misc Panel) 259H 05/18/20 13:18: Vancomycin Level Trough 17.9 05/18/20 16:50: Bedside Glucose (Misc Panel) 286H 05/18/20 20:31: Bedside Glucose (Misc Panel) 286H CBC/BMP Laboratory Tests 05/18/20 06:14 JULIO PISANO DO May 18, 2020 21:21
[2020-05-19] MEDS: VANCOMYCIN HCL 1,000 MG, VIAL MATE ADAPTER 1 EACH in D5W 250 ML IV SCH ×2 (01:09→08:05)
[2020-05-19] MEDS: PIPERACILLIN/TAZOBACTAM SOD 4.5 GM in D5W MINI-BAG PLUS 50 ML IV SCH (03:52)
[2020-05-19] MEDS: SODIUM CHLORIDE 0.9% INJ 10 ML SYR IV SCH ×2 (05:29→17:23)
[2020-05-19 06:17] VITALS: BP 185/83
[2020-05-19 06:31] LABS: HEMATOCRIT 40.1 % (42.0-52.0); HEMOGLOBIN 13.5 g/dl (13.5-17.5); MEAN CORPUSCULAR HEMOGLOBIN 31.1 pg (27.0-33.0); MEAN CORPUSCULAR HGB CONC 33.7 g/dl (32.0-36.5); MEAN CORPUSCULAR VOLUME 92.4 fl (80.0-96.0); PLATELET COUNT, AUTOMATED 335 10^3/uL (150-450); RED BLOOD COUNT 4.34 10^6/uL (4.30-6.10)
[2020-05-19 06:43] LABS: BLOOD UREA NITROGEN 25 MG/DL (7-18); CALCIUM LEVEL 9.1 MG/DL (8.8-10.2); CARBON DIOXIDE LEVEL 24 MEQ/L (21-32); CHLORIDE LEVEL 103 MEQ/L (98-107); CREATININE FOR GFR 1.23 MG/DL (0.70-1.30); GLOMERULAR FILTRATION RATE > 60.0 (>49); GLUCOSE, FASTING 244 MG/DL (70-100); POTASSIUM SERUM 4.3 MEQ/L (3.5-5.1); SODIUM LEVEL 137 MEQ/L (136-145)
[2020-05-19 06:48] LABS: ERYTHROCYTE SEDIMENTATION RATE 58 mm/hr (0-20)
[2020-05-19] MEDS: ENOXAPARIN 40MG/0.4ML SYRINGE (J1650 PER 10MG) SC SCH (08:03)
[2020-05-19] MEDS: SIMVASTATIN 40 MG TAB PO SCH (08:04)
[2020-05-19] MEDS: hydroCHLOROthiazide 25 MG TAB PO SCH (08:04)
[2020-05-19] MEDS: lisinopriL 40 MG TAB PO SCH (08:04)
[2020-05-19] MEDS: HumuLIN N INSULIN (NovoLIN N) PER UNIT SC SCH ×3 (08:04→17:24)
[2020-05-19] MEDS: HumaLOG INSULIN (NovoLOG) PER UNIT SC SCH ×4 (08:04→21:00)
[2020-05-19] MEDS: KETOROLAC 0.5% OPHTH SOLN OS SCH ×4 (08:05→21:01)
[2020-05-19] MEDS: BRIMONIDINE 0.1% OPHTH SOLN 5 ML OS SCH ×2 (08:05→21:01)
[2020-05-19] MEDS: TIMOLOL MALEATE 0.5% OPHTH SOLN 5 ML OS SCH (08:05)
[2020-05-19] MEDS ORDERED: amLODIPine 10 MG TAB PO ONE (11:30)
--- NOTE | 2020-05-19 11:39 | IPNPDOC ---
Date Seen The patient was seen on 05/19/20. Progress Note SUBJECTIVE: Denies fever or chills. 5/10 pain in left foot despite tylenol OBJECTIVE PHYSICAL EXAMINATION: VITAL SIGNS: Please see below. GENERAL: No distress HEENT: No JVD, thyromegaly, stridor, cervical lymphadenopathy or pharyngeal erythema CARDIOVASCULAR: S1, S2, regular rate and rhythm RESPIRATORY: Clear to auscultation. No wheezing, rales or rhonchi. ABDOMINAL: Obese, soft, nontender, nondistended, positive bowel sounds 4 quadrants EXTREMITIES: left dorsal foot with erythema , black dry gangrene/eschar with ulcerations on the dorsalfirst, second, third and fifth toes. no crepitus, fluctuance, or purulent drainage. LABORATORY DATA, IMAGING STUDIES, MICROBIOLOGY: Please see below. ARTERIAL DOPPLERS 05/18/20 Atherosclerotic disease as noted above. Proximal SFA, tibial-peroneal trunk, and posterior tibial artery occlusions on the left with slow flow in the left anterior tibial. <Electronically signed by Tristan Loera > 05/18/20 1048 MRI LEFT FOOT: 1. Bone marrow edema and enhancement involving the head of the left 5th metatarsal and to a lesser extent in the heads of the left 3rd and 4th metatarsals, which may represent early osteomyelitis, reactive osteitis, or may be posttraumatic in nature. 2. Soft tissue swelling and edema around the left ankle and dorsal aspect of the left midfoot and forefoot, which may represent cellulitis or lymphedema. No abscess. Electronically signed by: Chris Sullivan On 05/15/2020 22:35:22 PM ASSESSMENT AND PLAN: 70-year-old male with poorly controlled diabetes, peripheral arterial disease Cataract admitted on 2020, due to worsening left foot pain, swelling and redness for left le cellulitis and nonhealing ulcers. Left lower extremity cellulitis, nonhealing diabetic foot ulcers -Admission white blood cell count was 12.9. He was afebrile, started on intravenous vancomycin And Zosyn 05/15/20-05/19/20. -Senior Research Scientist, was consulted who recommended continuation of intravenous antibiotics for now and the need for immediate surgical debridement. -MRI of the foot shows cellulitis of the ankle dorsal aspect of the left midfoot and forefoot without abscess. Left third, fourth and fifth metatarsals were concerning for osteomyelitis versus traumatic or osteitis -s/p vancomycin started 05/15/20 and discontinued on 05/19/2020 -on Zyvox day #1 Peripheral arterial disease -Arterial Dopplers show atherosclerotic disease with occlusions in the proximal SFA tibial peroneal trunk and pursue tibial artery was slow flow in the left anterior tibial -Vascular surgery has been consulted to evaluate for revascularization to improve circulation due to nonhealing diabetic foot ulcers on the left lower extremity Hypertension -In anticipation of possible contrast study with arteriogram to further evaluate patient's peripheral arterial disease. Patient's hydrochlorothiazide and lisinopril been discontinued to prevent contrast nephropathy the setting of nephrotoxins. Poorly controlled type 2 diabetes -Increase NPH insulin to 45 units with meals -Carbohydrate diet, sliding scale and fingersticks every before meals at bedtime Disposition: Await clinical improvement. 3-4 days, vascular surgical recommendations [facility] Vital Signs Date Time Temp Pulse Resp B/P (MAP) Pulse Ox O2 Delivery O2 Flow Rate FiO2 05/19/20 06:17 97.7 72 18 185/83 (117) 94 Room Air I&O- Last 24 Hours up to 6 AM 05/19/20 06:00 Intake Total 1200 ml Output Total 200 ml Balance 1000 ml Laboratory Data 24H LABS Laboratory Tests 2 05/18/20 11:28: Bedside Glucose (Misc Panel) 259H 05/18/20 13:18: Vancomycin Level Trough 17.9 05/18/20 16:50: Bedside Glucose (Misc Panel) 286H 05/18/20 20:31: Bedside Glucose (Misc Panel) 286H 05/19/20 06:04: Nucleated Red Blood Cells % (auto) 0.0, Erythrocyte Sedimentation Rate 58H, Anion Gap 10, Glomerular Filtration Rate > 60.0, Calcium Level 9.1 CBC/BMP Laboratory Tests 05/19/20 06:04 DELILAH MAYNARD MD May 19, 2020 11:39
[2020-05-19] MEDS: ISOSORBIDE MONONITRATE 10MG TABLET PO SCH ×2 (12:00→16:00)
[2020-05-19] MEDS: **hydrALAZINE** 10 MG TAB PO SCH ×3 (12:00→21:00)
[2020-05-19] MEDS: LINEZOLID 600MG TABLET (ZYVOX) PO SCH ×2 (12:03→20:59)
[2020-05-19 14:00] VITALS: BP 176/76
[2020-05-19 16:00] VITALS: BP 133/54
[2020-05-19 22:00] VITALS: BP 150/79
[2020-05-20] MEDS: SODIUM CHLORIDE 0.9% INJ 10 ML SYR IV SCH ×2 (05:12→18:15)
[2020-05-20 06:00] VITALS: BP 144/87
[2020-05-20 06:36] LABS: HEMATOCRIT 40.1 % (42.0-52.0); HEMOGLOBIN 13.7 g/dl (13.5-17.5); MEAN CORPUSCULAR HEMOGLOBIN 31.5 pg (27.0-33.0); MEAN CORPUSCULAR HGB CONC 34.2 g/dl (32.0-36.5); MEAN CORPUSCULAR VOLUME 92.2 fl (80.0-96.0); PLATELET COUNT, AUTOMATED 332 10^3/uL (150-450); RED BLOOD COUNT 4.35 10^6/uL (4.30-6.10); WHITE BLOOD COUNT 10.8 10^3/uL (4.0-10.0)
[2020-05-20 06:57] LABS: BLOOD UREA NITROGEN 27 MG/DL (7-18); CALCIUM LEVEL 9.3 MG/DL (8.8-10.2); CARBON DIOXIDE LEVEL 26 MEQ/L (21-32); CHLORIDE LEVEL 103 MEQ/L (98-107); CREATININE FOR GFR 1.19 MG/DL (0.70-1.30); GLOMERULAR FILTRATION RATE > 60.0 (>49); GLUCOSE, FASTING 171 MG/DL (70-100); SODIUM LEVEL 137 MEQ/L (136-145)
[2020-05-20 07:59] LABS: ERYTHROCYTE SEDIMENTATION RATE 62 mm/hr (0-20)
[2020-05-20] MEDS: ENOXAPARIN 40MG/0.4ML SYRINGE (J1650 PER 10MG) SC SCH (08:03)
[2020-05-20] MEDS: HumaLOG INSULIN (NovoLOG) PER UNIT SC SCH ×4 (08:03→21:00)
[2020-05-20] MEDS: SIMVASTATIN 40 MG TAB PO SCH (08:04)
[2020-05-20] MEDS: ISOSORBIDE MONONITRATE 10MG TABLET PO SCH ×2 (08:04→16:00)
[2020-05-20] MEDS: BRIMONIDINE 0.1% OPHTH SOLN 5 ML OS SCH ×2 (08:04→21:39)
[2020-05-20] MEDS: HumuLIN N INSULIN (NovoLIN N) PER UNIT SC SCH ×3 (08:04→18:15)
[2020-05-20] MEDS: TIMOLOL MALEATE 0.5% OPHTH SOLN 5 ML OS SCH (08:04)
[2020-05-20] MEDS: KETOROLAC 0.5% OPHTH SOLN OS SCH ×4 (08:04→21:39)
[2020-05-20] MEDS: **hydrALAZINE** 10 MG TAB PO SCH (08:05)
[2020-05-20] MEDS: amLODIPine 10 MG TAB PO SCH (08:05)
[2020-05-20] MEDS: LINEZOLID 600MG TABLET (ZYVOX) PO SCH ×2 (08:05→21:38)
--- NOTE | 2020-05-20 12:01 | IPNPDOC ---
Date Seen The patient was seen on 05/20/20. Progress Note SUBJECTIVE: Patient complains of 7 out of 10 on a pain scale when he tries to bear weight on the left heel. Changed to Zyvox by mouth yesterday with vancomycin being discontinued. Awaiting MRSA screen, No fever, chills. OBJECTIVE PHYSICAL EXAMINATION: VITAL SIGNS: Please see below. GENERAL: No distress. Awake, alert, oriented 3. HEENT: b/l cataracts No JVD, thyromegaly, stridor, cervical lymphadenopathy or pharyngeal erythema CARDIOVASCULAR: S1, S2, regular rate and rhythm RESPIRATORY: Clear to auscultation. No wheezing, rales or rhonchi. ABDOMINAL: Obese, soft, nontender, nondistended, positive bowel sounds 4 quadrants EXTREMITIES: left dorsal foot with less erythema , black dry gangrene/eschar with ulcerations on the dorsalfirst, second, third and fifth toes. no crepitus, fluct uance, or purulent drainage. LABORATORY DATA, IMAGING STUDIES, MICROBIOLOGY: Please see below. ARTERIAL DOPPLERS 05/18/20 Atherosclerotic disease as noted above. Proximal SFA, tibial-peroneal trunk, and posterior tibial artery occlusions on the left with slow flow in the left anterior tibial. <Electronically signed by Tristan Loera > 05/18/20 1048 MRI LEFT FOOT: 1. Bone marrow edema and enhancement involving the head of the left 5th metatarsal and to a lesser extent in the heads of the left 3rd and 4th metatarsals, which may represent early osteomyelitis, reactive osteitis, or may be posttraumatic in nature. 2. Soft tissue swelling and edema around the left ankle and dorsal aspect of the left midfoot and forefoot, which may represent cellulitis or lymphedema. No abscess. Electronically signed by: Chris Sullivan On 05/15/2020 22:35:22 PM ASSESSMENT AND PLAN: 70-year-old male with poorly controlled diabetes, peripheral arterial disease Cataract admitted on 2020, due to worsening left foot pain, swelling and redness for left le cellulitis and nonhealing ulcers. Left lower extremity cellulitis, nonhealing diabetic foot ulcers -Admission white blood cell count was 12.9. -He was afebrile, started on intravenous vancomycinAnd Zosyn 05/15/20-05/19/20. -Shoe Stock Associate, was consulted who recommended continuation of intravenous antibiotics for now and the need for immediate surgical debridement. -MRI of the foot shows cellulitis of the ankle dorsal aspect of the left midfoot and forefoot without abscess. Left third, fourth and fifth metatarsals were concerning for osteomyelitis versus traumatic or osteitis -s/p vancomycin started 05/15/20 and discontinued on 05/19/2020 -on Zyvox day #2 -MRSA screen is pending Peripheral arterial disease -Arterial Dopplers show atherosclerotic disease with occlusions in the proximal SFA tibial peroneal trunk and pursue tibial artery was slow flow in the left anterior tibial -Vascular surgery is not available. -Interventional radiologist, Dr. Celaya has refused arterial Dopplers and recommends outpatient follow-upIf patient prefers IR versus fast for surgery -Patient does not have an ischemic foot without cyanosis, despite decreased pulses. Patient has adequate circulation and has no signs of acute ischemia. -once Cellulitis has improved. Patient may continue on oral antibiotics at home to complete a total of 10 days with outpatient follow-up with vascular surgery for revascularization. -Optimize lipid, htn, dm control Hypertension -In anticipation of possible contrast study with arteriogram to further evaluate patient's peripheral arterial disease. Patient's hydrochlorothiazide and lisinopril been discontinued to prevent contrast nephropathy the setting of nephrotoxins. Poorly controlled type 2 diabetes -Increase NPH insulin to 48 units with meals -Carbohydrate diet, sliding scale and fingersticks every before meals at bedtime Disposition: Await clinical improvement. 3-4 days. Vascular surgery is not available. Patient may refer to outpatient vascular surgery after hospital discharge for revascularization VS, I&O, 24H, Agus Vital Signs/I&O Vital Signs Date Time Temp Pulse Resp B/P (MAP) Pulse Ox O2 Delivery O2 Flow Rate FiO2 05/20/20 08:05 144/87 05/20/20 08:05 71 05/20/20 06:00 97.6 19 96 Room Air I&O- Last 24 Hours up to 6 AM 05/20/20 06:00 Intake Total 1790 ml Output Total 0 ml Balance 1790 ml Laboratory Data 24H LABS Laboratory Tests 2 05/19/20 17:08: Bedside Glucose (Misc Panel) 224H 05/19/20 20:07: Bedside Glucose (Misc Panel) 187H 05/20/20 06:02: Nucleated Red Blood Cells % (auto) 0.0, Erythrocyte Sedimentation Rate 62H, Anion Gap 8, Glomerular Filtration Rate > 60.0, Calcium Level 9.3 05/20/20 11:30: Bedside Glucose (Misc Panel) 206H CBC/BMP Laboratory Tests 05/20/20 06:02 DELILAH MAYNARD MD May 20, 2020 12:01
--- NOTE | 2020-05-20 12:12 | REP ---
PROCEDURE NAME: MIDLINE INSERTION W/ SITERITE CLINICAL INFORMATION: POOR IV ACCESS. COMPARISON: None. PROCEDURE DESCRIPTION: The procedure was performed by MUKUND Lee, under the direct supervision of Dr. Loera. The risks and benefits of the procedure were explained to the patient and an informed consent was obtained both verbally and written. Directly prior to the start of the procedure a formal time-out was completed in the procedure room. The left lateral brachial vein was localized using ultrasound guidance. The skin was prepped and draped in sterile fashion. Five mL of 1% lidocaine 10 mg/mL was used as a local anesthetic. Using ultrasound guidance the left lateral brachial vein was cannulated, and a 0.018 guidewire was inserted. The needle was removed and a 5.5 Azeri dilator and peel-away sheath was inserted over the guidewire. A 5.5 Azeri dual lumen catheter was cut to a length of 12 cm. The dilator was removed and the catheter was inserted over the guidewire. The peel-away sheath was removed and the catheter was flushed with heparinized saline as per hospital protocol. The catheter was affixed to the skin and a sterile dressing was applied. The patient tolerated the procedure well and there were no immediate complications. CONCLUSION: Mid line insertion into the left lateral brachial vein. <Electronically signed by Korina Tapia > 05/18/20 1616 <Electronically signed by Tristan Loera > 05/20/20 0956
[2020-05-20 14:00] VITALS: BP 125/56
[2020-05-20] MEDS: **hydrALAZINE HCL** 25 MG TAB PO SCH (21:39)
[2020-05-20 22:00] VITALS: BP 128/56
[2020-05-21] MEDS: SODIUM CHLORIDE 0.9% INJ 10 ML SYR IV SCH (05:15)
[2020-05-21 06:00] VITALS: BP 132/68
[2020-05-21] MEDS: HumaLOG INSULIN (NovoLOG) PER UNIT SC SCH ×2 (08:12→12:52)
[2020-05-21] MEDS: **hydrALAZINE HCL** 25 MG TAB PO SCH (08:12)
[2020-05-21] MEDS: HumuLIN N INSULIN (NovoLIN N) PER UNIT SC SCH ×2 (08:12→12:53)
[2020-05-21 08:13] VITALS: BP 132/68
[2020-05-21] MEDS: ISOSORBIDE MONONITRATE 10MG TABLET PO SCH (08:13)
[2020-05-21] MEDS: amLODIPine 10 MG TAB PO SCH (08:13)
[2020-05-21] MEDS: SIMVASTATIN 40 MG TAB PO SCH (08:13)
[2020-05-21] MEDS: LINEZOLID 600MG TABLET (ZYVOX) PO SCH (08:13)
[2020-05-21] MEDS: TIMOLOL MALEATE 0.5% OPHTH SOLN 5 ML OS SCH (08:14)
[2020-05-21] MEDS: KETOROLAC 0.5% OPHTH SOLN OS SCH ×2 (08:14→12:56)
[2020-05-21] MEDS: BRIMONIDINE 0.1% OPHTH SOLN 5 ML OS SCH (08:14)
[2020-05-21] MEDS: ENOXAPARIN 40MG/0.4ML SYRINGE (J1650 PER 10MG) SC SCH (08:14)
--- NOTE | 2020-05-21 08:52 | IPN ---
PROGRESS NOTE DATE: 05/20/2020 SUBJECTIVE: The patient is seen and examined at bedside. Denies new complaints. States his pain is better. Still some soreness in his foot. Labs are reviewed. White blood cell count is 10.8, ESR 62. PHYSICAL EXAMINATION: Vitals: He has remained afebrile. Lower extremity examination: Erythema and edema improved, wounds unchanged. ASSESSMENT: 70-year-old diabetic male with peripheral vascular disease and cellulitis with foot ulcerations. PLAN: He has been switched to oral Linezolid and is doing well. Likely can be discharged on this for 2 weeks. He is to have outpatient follow up with vascular surgery and should follow up with myself within 2 weeks.
[2020-05-21] MEDS ORDERED: ZYVO1TAB PO (09:49)
[2020-05-21 09:55] LABS: BASO # 0.1 10^3/uL (0.0-0.2); BASO % 0.7 % (0.0-1.0); EOS # 0.6 10^3/uL (0.0-0.5); EOS % 5.9 % (0.0-3.0); HEMATOCRIT 38.4 % (42.0-52.0); HEMOGLOBIN 12.9 g/dl (13.5-17.5); LYMPH # 1.5 10^3/uL (1.5-5.0); LYMPH % 13.9 % (24.0-44.0); MEAN CORPUSCULAR HEMOGLOBIN 31.1 pg (27.0-33.0); MEAN CORPUSCULAR HGB CONC 33.6 g/dl (32.0-36.5); MEAN CORPUSCULAR VOLUME 92.5 fl (80.0-96.0); MONO # 0.9 10^3/uL (0.0-0.8); MONO % 8.1 % (0.0-5.0); NEUTROPHILS # 7.6 10^3/uL (1.5-8.5); NEUTROPHILS % 70.8 % (36.0-66.0); PLATELET COUNT, AUTOMATED 316 10^3/uL (150-450); RED BLOOD COUNT 4.15 10^6/uL (4.30-6.10); WHITE BLOOD COUNT 10.7 10^3/uL (4.0-10.0)
[2020-05-21 10:20] LABS: C REACTIVE PROTEIN QUANTITATIV 2.06 MG/DL (0.00-0.30); CALCIUM LEVEL 9.1 MG/DL (8.8-10.2); CREATININE FOR GFR 1.45 MG/DL (0.70-1.30); GLOMERULAR FILTRATION RATE 51.5 (>49); POTASSIUM SERUM 4.2 MEQ/L (3.5-5.1)
[2020-05-21 11:03] LABS: ERYTHROCYTE SEDIMENTATION RATE 53 mm/hr (0-20)
[2020-05-21] MEDS ORDERED: HYDR25TA PO (11:22)
[2020-05-21] MEDS ORDERED: ISOS10TAB PO (11:22)
[2020-05-21] MEDS ORDERED: PERC5TAB12 PO (11:23)
[2020-05-21] MEDS ORDERED: LEVO500T3 PO (11:28)
[2020-05-21] MEDS ORDERED: LevoFLOXacin 500 MG TABLET PO SCH (11:30)
--- NOTE | 2020-05-21 11:36 | DS.PDOC ---
Discharge Summary General Date of Admission May 15, 2020 at 14:30 Date of Discharge 05/21/20 Discharge Summary DISCHARGE DIAGNOSES: LEFT FOOT DIABETIC FOOT INFECTION LEFT LOWER EXTREMITY CELLULITIS DIABETIC FOOT ULCERS PERIPHERAL ARTERIAL DISEASE OCCLUDED SFA, TIBIOPERONEAL TRUNK, POSTERIOR TIBIAL ARTERY, LOW FLOW ANTERIOR TIBIAL ARTERY DM2 , POORLY CONTROLLED OBESITY BMI 41.7 HTN ACUTE KIDNEY INJURY DISCHARGE MEDICATIONS: SEE BELOW ALLERGIES: SEE BELOW DISCHARGE INSTRUCTIONS: PODIATRY, VASCULAR SURGERY FOR PERIPHERAL VASCULAR DISEASE REVASCULARIZATION FOR NONHEALING LEFT FOOT DIABETIC ULCERS/ INFECTION 1WK, PCP 5DAYS ELEVATE RIGHT FOOT ON 2 PILLOWS WHEN SUPINE. HOSPITAL COURSE: 70-year-old male with poorly controlled diabetes, peripheral arterial disease Cataract admitted on 2020, due to worsening left foot pain, swelling and redness for left le cellulitis and nonhealing ulcers. Left lower extremity cellulitis, nonhealing diabetic foot ulcers -Admission white blood cell count was 12.9. -He was afebrile, started on intravenous vancomycinAnd Zosyn 05/15/20-05/19/20. -School Laboratory Technician, was consulted who recommended continuation of intravenous antibiotics for now and the need for immediate surgical debridement. -MRI of the foot shows cellulitis of the ankle dorsal aspect of the left midfoot and forefoot without abscess. Left third, fourth and fifth metatarsals were concerning for osteomyelitis versus traumatic or osteitis -s/p vancomycin started 05/15/20 and discontinued on 05/19/2020 -on Zyvox day #3. Levaquin added for gram negative coverage to complete 7days course -MRSA screen negative Peripheral arterial disease -Arterial Dopplers show atherosclerotic disease with occlusions in the proximal SFA tibial peroneal trunk and pursue tibial artery was slow flow in the left anterior tibial -Vascular surgery is not available. -Interventional radiologist, Dr. Celaya has refused arterial Dopplers and recommends outpatient follow-upIf patient prefers IR versus fast for surgery -Patient does not have an ischemic foot without cyanosis, despite decreased pulses. Patient has adequate circulation and has no signs of acute ischemia. -once Cellulitis has improved. Patient may continue on oral antibiotics at home to complete a total of 10 days with outpatient follow-up with vascular surgery for revascularization. -Optimize lipid, htn, dm control Acute kidney injury -lisinopril and hctz discontinued -s/p 2liters ivfluids Hypertension -In anticipation of possible contrast study with arteriogram to further evaluate patient's peripheral arterial disease, Patient's hydrochlorothiazide and lisinopril been discontinued to prevent contrast nephropathy the setting of nephrotoxins. -on isosorbid and hydralazine Poorly controlled type 2 diabetes -Increase NPH insulin to 48 units with meals -Carbohydrate diet, sliding scale and fingersticks every before meals at bedtime Disposition: Await clinical improvement. 3-4 days. Vascular surgery is not available. Patient may refer to outpatient vascular surgery after hospital discharge for revascularization DISCHARGE PHYSICAL EXAMINATION: VITAL SIGNS: Please see below. GENERAL: No distress. Awake, alert, oriented 3. HEENT:No JVD, thyromegaly, stridor, cervical lymphadenopathy or pharyngeal erythema CARDIOVASCULAR: S1, S2, regular rate and rhythm RESPIRATORY: Clear to auscultation. No wheezing, rales or rhonchi. ABDOMINAL: Obese, soft, nontender, nondistended, positive bowel sounds 4 quadrants EXTREMITIES: left dorsal foot with less erythema , black dry gangrene/eschar with ulcerations on the dorsalfirst, second, third and fifth toes. no crepitus, fluctuance, or purulent drainage. DISCHARGE LABORATORY DATA, IMAGING STUDIES, MICROBIOLOGY: Please see below. ARTERIAL DOPPLERS 05/18/20 Atherosclerotic disease as noted above. Proximal SFA, tibial-peroneal trunk, and posterior tibial artery occlusions on the left with slow flow in the left anterior tibial. <Electronically signed by Tristan Loera > 05/18/20 1048 MRI LEFT FOOT: 1. Bone marrow edema and enhancement involving the head of the left 5th metatarsal and to a lesser extent in the heads of the left 3rd and 4th metatarsals, which may represent early osteomyelitis, reactive osteitis, or may be posttraumatic in nature. 2. Soft tissue swelling and edema around the left ankle and dorsal aspect of the left midfoot and forefoot, which may represent cellulitis or lymphedema. No abscess. Electronically signed by: Chris Sullivan On 05/15/2020 22:35:22 PM TIME SPENT ON DISCHARGE: 30M INUTES. Vital Signs/I&Os Vital Signs Date Time Temp Pulse Resp B/P (MAP) Pulse Ox O2 Delivery O2 Flow Rate FiO2 05/21/20 08:13 132/68 05/21/20 08:13 68 05/21/20 06:00 98.1 18 96 Room Air I&O- Last 24 Hours up to 6 AM 05/21/20 06:00 Intake Total 1720 ml Output Total 0 ml Balance 1720 ml Laboratory Data Labs 24H Laboratory Tests 2 05/20/20 11:30: Bedside Glucose (Misc Panel) 206H 05/20/20 12:30: Methicillin-Resist S.aureus DNA PCR NOT DETECTED 05/20/20 16:50: Bedside Glucose (Misc Panel) 230H 05/20/20 20:41: Bedside Glucose (Misc Panel) 214H 05/21/20 06:02: Bedside Glucose (Misc Panel) 124H 05/21/20 09:33: Immature Granulocyte % (Auto) 0.6, Neutrophils (%) (Auto) 70.8H, Lymphocytes (%) (Auto) 13.9L, Monocytes (%) (Auto) 8.1H, Eosinophils (%) (Auto) 5.9H, Basophils (%) (Auto) 0.7, Neutrophils # (Auto) 7.6, Lymphocytes # (Auto) 1.5, Monocytes # (Auto) 0.9H, Eosinophils # (Auto) 0.6H, Basophils # (Auto) 0.1, Nucleated Red Blood Cells % (auto) 0.0, Erythrocyte Sedimentation Rate 53H, Anion Gap 9, Glomerular Filtration Rate 51.5, Calcium Level 9.1, C-Reactive Protein, Quantitative 2.06H CBC/BMP Laboratory Tests 05/21/20 09:33 FSBS Laboratory Tests Test 05/20/20 11:30 05/20/20 16:50 05/20/20 20:41 05/21/20 06:02 Range/Units Bedside Glucose (Misc Panel) 206 230 214 124 80-115 MG/DL Discharge Medications Scheduled Brimonidine Tartrate (Brimonidine Tartrate) 0.2% 5ML Drops, 1 DROP OS BID, (Reported) Hydralazine HCl (Hydralazine HCl) 25 Mg Tablet, 25 MG PO BID Insulin NPH Human Isophane (Novolin N) 100 Unit/1 Ml Vial, 40 UNITS SC TID, (Reported) Insulin Regular, Human (Novolin R) 100 Unit/1 Ml Vial, 1 UNITS SC AC, (Reported) PER SLIDING SCALE Isosorbide Mononitrate (Isosorbide Mononitrate) 10 Mg Tablet, 30 MG PO BID@09,16 Ketorolac Tromethamine (Ketorolac Tromethamine) 0.4% Drops, 1 DROP OS QID, (Reported) Levofloxacin (Levofloxacin) 500 Mg Tablet, 1 TAB PO DAILY Linezolid (Zyvox) 600 Mg Tablet, 1 TAB PO BID with food Simvastatin (Simvastatin) 40 Mg Tablet, 40 MG PO DAILY, (Reported) Timolol Maleate (Timolol Maleate) 0.5% 5ML Drops, 1 DROP OS DAILY, (Reported) Scheduled PRN Oxycodone HCl/Acetaminophen (Percocet 5-325 mg Tablet) 1 Each Tablet, 1 TAB PO TIDP PRN for pain Allergies Coded Allergies: ibuprofen (Verified Allergy, Severe, anaphylaxis, 05/15/20) Iodinated Contrast Media (Verified Adverse Reaction, Unknown, nausea, 05/15/20) DELILAH MAYNARD MD May 21, 2020 11:29
[2020-05-21] MEDS: NS 1,000 ML IV SCH ×2 (12:53→12:54)
[2020-05-21 14:00] VITALS: BP 156/65
[2020-05-21 15:13] LABS: BLOOD UREA NITROGEN 32 MG/DL (7-18); CALCIUM LEVEL 8.6 MG/DL (8.8-10.2); CARBON DIOXIDE LEVEL 24 MEQ/L (21-32); CHLORIDE LEVEL 105 MEQ/L (98-107); CREATININE FOR GFR 1.25 MG/DL (0.70-1.30); GLOMERULAR FILTRATION RATE > 60.0 (>49); GLUCOSE, FASTING 201 MG/DL (70-100); POTASSIUM SERUM 4.3 MEQ/L (3.5-5.1); SODIUM LEVEL 138 MEQ/L (136-145)
== END 2020-05-21 17:14 | disposition home or self-care (01) | DRG 638 ==
LOC: M ED 10:13 → M ED INP 14:30 → M MS5PR 22:48
PROVIDERS: ADMIT Internal Medicine; ATTEND General Practice
PROC: 02HV33Z Insertion of Infusion Device into Superior Vena Cava, Percutaneous Approach (ICD-10-PCS; principal; 2020-05-19)
DX: E11.621 Type 2 diabetes mellitus with foot ulcer (principal); L97.929 Non-pressure chronic ulcer of unspecified part of left lower leg with unspecified severity; L03.116 Cellulitis of left lower limb; Z68.41 Body mass index [BMI] 40.0-44.9, adult; N17.9 Acute kidney failure, unspecified; I10 Essential (primary) hypertension; E66.9 Obesity, unspecified; E11.51 Type 2 diabetes mellitus with diabetic peripheral angiopathy without gangrene; Z79.899 Other long term (current) drug therapy; Z79.4 Long term (current) use of insulin; Z88.6 Allergy status to analgesic agent; Z88.8 Allergy status to other drugs, medicaments and biological substances; H26.9 Unspecified cataract; E78.5 Hyperlipidemia, unspecified; Z91.041 Radiographic dye allergy status; Z87.891 Personal history of nicotine dependence; I77.1 Stricture of artery

== ENCOUNTER → 2020-06-01 | Outpatient (CLI) | payer MEDICARE ==
[~2020-06-01] MED LIST changes: +CLOP75TA2 PO; +HumaLOG INSULIN (NovoLOG) PER UNIT As Ordered ONE; +ISOS1TAB35 PO; +ISOVUE-300 61% 50ML VIAL As Ordered ONE; +LABETALOL 100MG/20ML VIAL As Ordered ONE; +LIDOCAINE 1% MDV 20ML VIAL As Ordered ONE; +MIDAZOLAM INJ 2MG/2ML VIAL (J2250 PER 1MG) As Ordered ONE; +ONDANSETRON 4MG/2ML VIAL As Ordered ONE; +PERCOCET 5MG/325MG TAB As Ordered ONE; +fentaNYL 100 MCG/2 ML INJECTION (J3010) As Ordered ONE; +hydrALAZINE 20MG/ML 1ML VIAL (J0360 PER 20MG) As Ordered ONE
--- NOTE | 2020-06-01 09:48 | ROOPDOC ---
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 Ultrasound-guided access right common femoral artery 2. Aortoiliofemoral arteriogram 3. Selection left common femoral and superficial femoral artery and left lower extremity runoff 4. Cross chronic total occlusion left superficial femoral artery with flexion distal left popliteal artery and left lower extremity tibial runoff 5. Angioplasty left superficial femoral artery and left popliteal artery proximally lives 6 x 200 [place] balloon 6. Stent left superficial femoral artery with a 6 x 150, 7 x 150, and 7 x 100 Innova stent and post-dilation was 6 x 200 [place] balloon 7. Cross near occlusion left mid popliteal artery and angioplasty with 4 x 100 Jorge balloon 8. Attempt to cross chronic total occlusion distal left tibioperoneal trunk, aborted 9. Completion arteriograms 10. Mynx closure right common femoral artery SURGEON: Fausto Kuhn MD ANESTHESIA: Local anesthesia 6 mL lidocaine. Moderate intravenous conscious sedation administration was supervised by Dr. Kuhn. The patient was independently monitored by registered nurse assigned to the Department of radiology using automated blood pressure, EKG, and pulse oximetry. The details sedation record is permanently stored in the hospital information system. The following is a brief sedation record: Start time 07:59, stop time 09:22, Versed 2.5 mg IV, fentanyl 125 g IV, hydralazine 30 mg IV, labetalol 20 mg IV, heparin 5000 units IV. The patient was hypertensive with blood pressure 180-230 mmHg during the case, the blood pressure was less than 150 mmHg by case close. INDICATION FOR PROCEDURE: This is a very pleasant 70-year-old gentleman with atherosclerosis in the quechan arteries and gangrene of the left foot on multiple toes, seen by our podiatry colleague Dr. Fabian, and here today for an arteriogram and potential intervention to see if we can provide any options for revascularization. Risks benefits and alternatives to an arteriogram and intervention were explained to the patient. I did warn him that his arterial duplex suggested His disease was fairly severe, and he may not have an option for an endovascular revascularization. We would however need the imaging to plan any further options for distal bypass revascularization from an open surgical standpoint. I also explained to him that because of the severity of his arterial disease, he is at risk for limb loss. After reviewing the patient's history of contrast allergy, he says that he had hives and nausea with IV contrast in the 1970s. Since then, he has done well with pretreatment. He was given a prescription for prednisone pretreatment, the first dose 13 hours prior to the procedure, the second 07 hours prior to the procedure, the third dose one hour prior to the procedure. An additional 50 mg of Benadryl was prescribed for 1 hour prior to the procedure. The patient took the 13 hour dose, and the 1 hour prior dose, but forgot to take the second 7 hour prior dose. I discussed with him that this does put him at a slightly increased risk of contrast reaction, but that we would use as little as possible, try to diluted as much as possible with saline during the procedure, but that we would have to stop if he showed any signs of contrast allergy. I offered an option to reschedule the procedure, but the patient was fairly adamant that he would like to proceed to try to salvage his leg. I think this is reasonable and we will watch him closely during the procedure. We will also give him a dose of Zofran prior to the procedure since he had nausea with contrast in the past. He is fairly hypertensive preprocedure, and we will treat his hypertension during the procedure. I discussed with him that if his hypertension is not controllable, we will also have to stop the procedure. He understands all of this and has been extensively counseled and all questions were answered. INTERPRETATION: 1. The distal aorta and iliac vessels have some calcification and ectasia, but are otherwise widely patent. No flow limitations are noted. There is rapid flow through the left and right common iliac arteries, hypogastric arteries, and external iliac arteries. The common femoral arteries are patent with ectasia and plaque bilaterally. 2. The left common femoral artery has excellent runoff through the profunda which provides excellent collateral flow down to the popliteal artery at the knee. The left superficial femoral artery occludes 1 cm from its origin and reconstitutes with ready flow at Taurus's canal, some intermittent stenoses throughout the popliteal artery, but large genicular vessel collaterals are the main blood flow below the knee. 3. The left tibioperoneal trunk occludes in the midportion and does not reconstitute. There is some thready flow from collaterals into a heavily diseased and diminutive size peroneal artery. The anterior tibial artery occludes near its origin and does not reconstitute until the distal calf where there are some thready collaterals and a few centimeters of the anterior tibial artery is open. The posterior tibial artery is not visualized from its origin to the foot. Again, the main flow below the knee to the foot is from the genicular artery collaterals. At the foot itself, there is heavy microvascular disease and limited blood flow is visualized, even after selecting the left popliteal artery after crossing the occlusion in the SFA. Outflow to the toes is fairly abysmal due to distal microvascular disease. 4. After crossing the left SFA occlusion and angioplasty in the popliteal artery and the SFA with a 6 x 200 [place] balloon, there are still areas of flow- limiting dissection, residual stenosis greater than 50%, and thus stents were placed and postdilated with 6 x 200 [place] balloon. Following this, there is widely patent flow through the left superficial femoral artery and popliteal artery and improved flow into the genicular collaterals and into the calf co llaterals. 5. After attempting to cross the occlusion in the distal tibioperoneal trunk, no extravasation was noted, but this was ultimately unsuccessful despite aggressive efforts and was aborted. 6. A case close, the patient had widely patent flow through the left common femoral artery, superficial femoral artery, popliteal artery into the genicular vessels and collaterals below the leg with intermittent reconstitution of the left peroneal artery and anterior tibial artery for a few centimeters in the mid and distal calf. No significant flow was noted in the distal foot despite proximal revascularization. REPORT OF OPERATION: The patient was brought to the angiographic suite in stable condition. Bilateral groins were prepped and draped in sterile fashion. A timeout was performed. Sedation was administered without complication. Local anesthesia was a secondary school registrar to skin and subcutaneous tissue over the right common femoral artery. A microneedle was used to access the artery under ultrasound guidance. A wire was passed through this access and the needle was removed. A 4 [place] sheath was placed and flushed with saline. Glidewire and flushing catheter were advanced into the distal aorta. Aortoiliofemoral arteriograms were performed. Please see interpretation above. We selected the left common femoral and superficial femoral artery and left lower extremity arteriograms with runoff were performed, please see interpretation above. We exchange the sheath over wire for a 6 x 45 cm destination sheath and flushed the sheath with saline. A [place] catheter was passed over the wire and we were able to cross through the occlusion in the left superficial femoral artery down to the mid popliteal artery. This was extremely difficult, but successful. We confirmed we were in the true lumen and angioplastied with a 6 x 200 [place] balloon for three-minute inflations along the length of the vessel. Following this, we have luminal flow, but still significant flow limitation due to residual stenosis and flow-limiting dissections from the areas of occlusion. We selected a 6 x 150 Innova stent and placed this from just distal to Taurus's canal up through the distal SFA. We overlap this with a 1 cm overlap proximally with a 7 x 150 Innova stent through the mid proximal SFA. We extended this to the origin of the SFA with a 7 x 100 SFA stent. These were postdilated with a 6 x 200 [place] balloon. Following this there was widely patent flow through the stents. Next, we exchange the wire for an 018 Glidewire advantage and an O18 [place]. We then attempted to cross through the heavily calcified occlusion at the distal tibioperoneal trunk. We spent almost 25 minutes trying to cross this, but were ultimately unsuccessful. Completion arteriogram did not show any extravasation after trying to cross. We then exchange the sheath for short 6 [place] sheath and applied a Mynx closure device with good hemostasis. Pressure was held for 10 minutes and sterile dressings were applied. The patient tolerated the procedure well. ESTIMATED BLOOD LOSS: Approximately 5 mL. COMPLICATIONS: None PLAN: Okay to resume home diet and medications. The patient has very severe arterial disease. He has no in-line flow from the popliteal artery to the foot. He has severe microvascular disease from the upper calf to the ankle and the majority of his flow to the foot is through collateral circulation from the genicular vessel laterally at the knee, and other collaterals from the popliteal artery. This may or may not be sufficient to heal the gangrene on his foot now that we have restored in-line flow through the superficial femoral artery and popliteal artery. I have warned the patient that he is high risk for amputation at this point. We will start Plavix and he will likely need to continue this for life. We will see him back in clinic in 1 week to check his perfusion. We appreciate the opportunity to participate in the care of this patient. FAUSTO KUHN MD Jun 01, 2020 09:48
[2020-06-01 12:30] VITALS: BP 156/65
== END ==
LOC: M IRPRO 06:31
PROVIDERS: ATTEND Surgery Vascular Surgery
DX: I70.262 Atherosclerosis of native arteries of extremities with gangrene, left leg (principal); I70.213 Atherosclerosis of native arteries of extremities with intermittent claudication, bilateral legs; I70.92 Chronic total occlusion of artery of the extremities; I10 Essential (primary) hypertension; E11.9 Type 2 diabetes mellitus without complications; E66.9 Obesity, unspecified; E78.5 Hyperlipidemia, unspecified; Z68.41 Body mass index [BMI] 40.0-44.9, adult; Z79.4 Long term (current) use of insulin; Z79.899 Other long term (current) drug therapy; Z87.891 Personal history of nicotine dependence; Z91.041 Radiographic dye allergy status
CPT/HCPCS: 37226; 75630; 75774; 99152; 99153; C1725; C1729; C1760; C1769; C1876; C1887; C1894; J0360; J1644; J2250; J2405; J3010; Q9967

== ENCOUNTER → 2020-07-07 | Outpatient (CLI) | payer MEDICARE ==
[~2020-07-07] MED LIST changes: -HumaLOG INSULIN (NovoLOG) PER UNIT As Ordered ONE; -ISOVUE-300 61% 50ML VIAL As Ordered ONE; -LABETALOL 100MG/20ML VIAL As Ordered ONE; -LIDOCAINE 1% MDV 20ML VIAL As Ordered ONE; -MIDAZOLAM INJ 2MG/2ML VIAL (J2250 PER 1MG) As Ordered ONE; -ONDANSETRON 4MG/2ML VIAL As Ordered ONE; -PERCOCET 5MG/325MG TAB As Ordered ONE; -fentaNYL 100 MCG/2 ML INJECTION (J3010) As Ordered ONE; -hydrALAZINE 20MG/ML 1ML VIAL (J0360 PER 20MG) As Ordered ONE
--- NOTE | 2020-07-07 13:56 | REP ---
INDICATION: ATH LETICIA ART OF CLAUDIA LEGS, INT ARGENIS. COMPARISON: Comparison study May 18, 2020.. TECHNIQUE: Bilateral lower extremity arterial Doppler ultrasound. FINDINGS: Ankle brachial indices could not be accomplished due to noncompressible vessels. The left posterior tibial artery is occluded. There is a patent left superficial femoral artery stent which appears to have been placed since the prior study. Moderate severe plaquing is seen in the left lower extremity arterial tree. The left popliteal artery is occluded from behind the knee. There is a large left geniculate collateral with 151.4 centimeters/seconds of monophasic waveform Doppler flow. Areas of revascularize flow are seen in the distal anterior tibial artery. The proximal and distal anterior and posterior tibial arteries are occluded on the left. In the left superficial femoral artery above the stent, 205.5 cm/S velocities recorded. At the stent origin the velocity is 204.2 cm/S. On the right there is moderate to severe plaquing. There is a proximal anterior tibial artery occlusion. Just beyond a large collateral artery. The right anterior tibial mid and distal are reconstituted. Right lower extremity arterial Doppler velocity chart: Right SCREEN MAKER PSV 138 cm/S Profundal 88 Proximal SFA 132 Mid SFA 129 Distal SFA 98 Popliteal 54 Proximal PARESH 159 Tibial-peroneal trunk 85 Proximal MEDICAL AUDITOR 206 Distal MEDICAL AUDITOR 71 Distal PARESH 156 Left lower extremity arterial Doppler velocity chart: Left SCREEN MAKER PSV 200 cm/S Profundal 05/22/2024 Proximal SFA 204 Mid SFA 83 Distal SFA 60 Popliteal above the knee 83, at the knee occluded Proximal PARESH occluded Tibial-peroneal trunk occluded Proximal MEDICAL AUDITOR occluded Distal MEDICAL AUDITOR occluded Distal PARESH 76 IMPRESSION: Moderate to severe plaquing. Short occlusion anterior tibial artery on the right. Popliteal artery occlusion and a occluded proximal anterior and posterior tibial arteries on the left. Patent left femoral artery stent. <Electronically signed by Tristan Loera > 07/07/20 [id number]
== END ==
LOC: M RAD 09:16
PROVIDERS: ATTEND Physician Assistant
DX: I70.213 Atherosclerosis of native arteries of extremities with intermittent claudication, bilateral legs (principal); I70.245 Atherosclerosis of native arteries of left leg with ulceration of other part of foot

== ENCOUNTER → 2020-08-14 | Outpatient (REF) | payer MEDICARE | LOC: M LAB REF 17:10 | PROVIDERS: ATTEND Podiatrist Foot & Ankle Surgery | DX: E11.621 Type 2 diabetes mellitus with foot ulcer (principal); M86.172 Other acute osteomyelitis, left ankle and foot; E11.52 Type 2 diabetes mellitus with diabetic peripheral angiopathy with gangrene ==

== ENCOUNTER 2020-08-21 15:22 | Inpatient (IN) | payer MEDICARE ==
[~2020-08-21] VITALS: Ht 180.3 cm; Wt 138.9 kg
[2020-08-21] MEDS ORDERED: VANCOMYCIN HCL 2,000 MG in D5W 500 ML IV ONE (17:50)
[2020-08-21] MEDS ORDERED: PIPERACILLIN/TAZOBACTAM SOD 3.375 GM in D5W MINI-BAG PLUS 50 ML IV ONE (17:50)
[2020-08-21] MEDS ORDERED: VANCOMYCIN HCL 1,000 MG, VIAL MATE ADAPTER 1 EACH in NS 250 ML IV ONE ×2 (18:30→19:30)
[2020-08-21 18:54] LABS: BASO # 0.1 10^3/uL (0.0-0.2); BASO % 0.6 % (0.0-1.0); EOS # 0.6 10^3/uL (0.0-0.5); EOS % 4.8 % (0.0-3.0); HEMATOCRIT 43.5 % (42.0-52.0); LYMPH # 1.2 10^3/uL (1.5-5.0); LYMPH % 9.7 % (24.0-44.0); MEAN CORPUSCULAR HEMOGLOBIN 29.7 pg (27.0-33.0); MEAN CORPUSCULAR HGB CONC 32.2 g/dl (32.0-36.5); MEAN CORPUSCULAR VOLUME 92.4 fl (80.0-96.0); MONO # 1.1 10^3/uL (0.0-0.8); MONO % 8.8 % (2.0-8.0); NEUTROPHILS # 9.6 10^3/uL (1.5-8.5); NEUTROPHILS % 75.7 % (36.0-66.0); PLATELET COUNT, AUTOMATED 407 10^3/uL (150-450); RED BLOOD COUNT 4.71 10^6/uL (4.30-6.10); WHITE BLOOD COUNT 12.6 10^3/uL (4.0-10.0)
--- NOTE | 2020-08-21 18:56 | REP ---
INDICATION: left dm ulcer/infection r/o osteo. COMPARISON: None. TECHNIQUE: Two views FINDINGS: Significant degenerative changes are seen throughout the foot. There are plantar and retrocalcaneal heel spurs. There is no acute fracture this limited two view exam. IMPRESSION: Chronic changes limited exam <Electronically signed by Inocencio Yates > 08/21/20 [id number]
[2020-08-21 19:14] LABS: BLOOD UREA NITROGEN 22 MG/DL (7-18); C REACTIVE PROTEIN QUANTITATIV 8.24 MG/DL (0.00-0.30); CALCIUM LEVEL 8.8 MG/DL (8.8-10.2); CARBON DIOXIDE LEVEL 26 MEQ/L (21-32); CHLORIDE LEVEL 105 MEQ/L (98-107); CREATININE FOR GFR 0.94 MG/DL (0.70-1.30); GLOMERULAR FILTRATION RATE > 60.0 (>49); GLUCOSE, FASTING 120 MG/DL (70-100); POTASSIUM SERUM 4.8 MEQ/L (3.5-5.1); SODIUM LEVEL 137 MEQ/L (136-145)
[2020-08-21 19:24] LABS: ERYTHROCYTE SEDIMENTATION RATE 71 mm/hr (0-20)
[2020-08-21] MEDS ORDERED: HYDR25TA PO (19:59)
[2020-08-21] MEDS ORDERED: PLAV1TAB2 PO (19:59)
[2020-08-21] MEDS ORDERED: GLUCOSE 4GM CHEW TABLET PO PRN (21:30)
[2020-08-21] MEDS ORDERED: MAALOX 30 ML SUSP *UDC PO PRN (21:30)
[2020-08-21] MEDS ORDERED: GLUCAGON INJ 1MG VIAL SC PRN (21:30)
[2020-08-21] MEDS ORDERED: MOM 30ML SUSPENSION UDC PO PRN (21:30)
[2020-08-21] MEDS ORDERED: DEXTROSE 50% 50 ML SYRINGE IV PRN (21:30)
--- NOTE | 2020-08-21 22:48 | HPEPDOC ---
[facility] Medical History & Physical Date of Admission August 21, 2020 Date of Service: August 21, 2020 History and Physical CHIEF COMPLAINT: Left foot pain HISTORY OF PRESENT ILLNESS: 70-year-old male history of diabetes and diabetic foot ulcer follows with podiatry Dr Fabian. He presents to the hospital because of worsening left foot pain. Patient denies any fevers or chills denies chest pain or shortness of breath endorses that his foot pain is 9 out of 10 at times currently 2/10. The pain does not radiate described as achy. Worse when weight-bearing alleviated with rest and raising his leg. Patient has a known chronic left foot ulcer affecting his large toe and fifth toe. He has been getting weekly debridements with podiatry in the clinic last seen yesterday. It was recommended to him to picker and sorter load and unload antibiotics but he didn't pick them up. His foot has been getting more tender and more redness over the skin. Podiatry where patient is here and plan for an amputation on Monday. In the meantime patient will be admitted to medical service for IV antibiotics. PAST MEDICAL/SURGICAL HISTORY: Insulin-dependent diabetes Hypertension Hyperlipidemia Cataracts Multiple surgeries of the eyes tells me 11 and total Legally blind in the right eye SOCIAL HISTORY: Denies alcohol use Denies tobacco use quit over 40 years ago Denies illicit drug use FAMILY HISTORY: Reviewed and none contributory to this admission ALLERGIES: Please see below. REVIEW OF SYSTEMS: 10 point review of systems complete all negative otherwise stated in HPI HOME MEDICATIONS: Please see below. PHYSICAL EXAMINATION: Constitutional: Awake and alert, in no apparent distress ENT: Sclera are clear. Mucosa is moist. Respiratory: Lungs CTA bilaterally. No respiratory distress. Cardiovascular: Regular heart rate and rhythm Gastrointestinal: Abdomen is soft, non distended, non tender Musculoskeletal: No lower extremity edema. Neurologic: No focal neurological deficit. Mental Status: A&O x3, normal affect Skin: Examination of the left foot reveals erythema over the dorsum of the foot but it does not extend up the leg. There is an unstageable large ulcer on the big toe on the medial aspect with gangrene and autoamputation. LABORATORY DATA: See below. IMAGING: See chart MICROBIOLOGY: Please see below. ASSESSMENT Diabetic foot ulcer with cellulitis Insulin-dependent diabetes PLAN Admitted to medical service for anticipated surgery by podiatry on Monday. Dr Fabian consulted. Broad-spectrum antibiotics with IV vancomycin and Zosyn. Follow-up blood cultures and wound cultures. He denies any cardiac problems other than hypotension however medicine reconciliation shows he is on isosorbide and clopidogrel. I will resume the isosorbide for now, I do not have an old echo reports to review. I will hold his Plavix in anticipation for surgery. Obtaining further history from PCP might be beneficial for surgical clearance. Continue home medications for hypertension and hyperlipidemia IDDM: ISS. Frequent Accu-Cheks. Hypoglycemic precautions. Cataracts: Continue eyedrops DVT prophylaxis with heparin A Yousef Hospitalist Vital Signs Vital Signs Date Time Temp Pulse Resp B/P (MAP) Pulse Ox O2 Delivery O2 Flow Rate FiO2 08/21/20 16:56 08/21/20 15:22 97.9 76 18 98 Room Air Laboratory Data Labs 24H Laboratory Tests 2 08/21/20 18:16: Immature Granulocyte % (Auto) 0.4, Neutrophils (%) (Auto) 75.7H, Lymphocytes (%) (Auto) 9.7L, Monocytes (%) (Auto) 8.8H, Eosinophils (%) (Auto) 4.8H, Basophils (%) (Auto) 0.6, Neutrophils # (Auto) 9.6H, Lymphocytes # (Auto) 1.2L, Monocytes # (Auto) 1.1H, Eosinophils # (Auto) 0.6H, Basophils # (Auto) 0.1, Nucleated Red Blood Cells % (auto) 0.0, Erythrocyte Sedimentation Rate 71H, Anion Gap 6L, Glomerular Filtration Rate > 60.0, Calcium Level 8.8, C-Reactive Protein, Juan ntitative 8.24H 08/21/20 19:34: Coronavirus (COVID-19)(PCR) NEGATIVE CBC/BMP Laboratory Tests 08/21/20 18:16 Microbiology Microbiology 08/21/20 Gram Stain, Received Pending 08/21/20 Wound Culture, Received Pending 08/21/20 Anaerobic Culture, Received Pending 08/21/20 Blood Culture, Received Pending 08/21/20 Blood Culture, Received Pending Home Medications Scheduled Brimonidine Tartrate (Brimonidine Tartrate) 0.2% 5ML Drops, 1 DROP OS BID Clopidogrel Bisulfate (Plavix) 75 Mg Tablet, 75 MG PO DAILY Hydralazine HCl (Hydralazine HCl) 25 Mg Tablet, 25 MG PO BID Insulin NPH Human Isophane (Novolin N) 100 Unit/1 Ml Vial, 40 UNITS SC TID Insulin Regular, Human (Novolin R) 100 Unit/1 Ml Vial, 1 UNITS SC AC PER SLIDING SCALE Isosorbide Mononitrate (Isosorbide Mononitrate ER) 30 Mg Tab.er.24h, 30 MG PO DAILY Ketorolac Tromethamine (Ketorolac Tromethamine) 0.4% Drops, 1 DROP OS QID Simvastatin (Simvastatin) 40 Mg Tablet, 40 MG PO DAILY Timolol Maleate (Timolol Maleate) 0.5% 5ML Drops, 1 DROP OS TID Allergies Coded Allergies: ibuprofen (Verified Allergy, Severe, anaphylaxis, 05/15/20) Iodinated Contrast Media (Verified Adverse Reaction, Unknown, nausea, 05/15/20) A-FIB/CHADSVASC A-FIB History Current/History of A-Fib/PAF?: No PETER HOGAN MD August 21, 2020 22:48
[2020-08-21] MEDS: HumaLOG INSULIN (NovoLOG) PER UNIT SC SCH (23:20)
[2020-08-21] MEDS: PIPERACILLIN/TAZOBACTAM SOD 4.5 GM in D5W MINI-BAG PLUS 50 ML IV SCH (23:55)
[2020-08-21] MEDS: **hydrALAZINE HCL** 25 MG TAB PO SCH (23:55)
[2020-08-22] VITALS (7 sets, daily range): BP systolic 132–205; BP diastolic 54–86
[2020-08-22] MEDS: VANCOMYCIN HCL 1,000 MG, VIAL MATE ADAPTER 1 EACH in NS 250 ML IV SCH ×3 (00:45→17:47)
[2020-08-22] MEDS ORDERED: **hydrALAZINE HCL** 25 MG TAB PO ONE (02:05)
[2020-08-22] MEDS: KETOROLAC 0.5% OPHTH SOLN OU SCH ×5 (02:31→21:22)
[2020-08-22] MEDS: BRIMONIDINE 0.15% OPHTH SOLN 5 ML OU SCH ×3 (02:31→21:22)
[2020-08-22] MEDS: PIPERACILLIN/TAZOBACTAM SOD 4.5 GM in D5W MINI-BAG PLUS 50 ML IV SCH ×3 (05:57→18:45)
[2020-08-22 06:05] LABS: HEMATOCRIT 39.1 % (42.0-52.0); HEMOGLOBIN 12.7 g/dl (13.5-17.5); MEAN CORPUSCULAR HEMOGLOBIN 29.5 pg (27.0-33.0); MEAN CORPUSCULAR HGB CONC 32.5 g/dl (32.0-36.5); MEAN CORPUSCULAR VOLUME 90.9 fl (80.0-96.0); PLATELET COUNT, AUTOMATED 342 10^3/uL (150-450); WHITE BLOOD COUNT 11.7 10^3/uL (4.0-10.0)
[2020-08-22 06:44] LABS: ALT/SGPT 19 U/L (12-78); BILIRUBIN,TOTAL 0.5 MG/DL (0.2-1.0); BLOOD UREA NITROGEN 20 MG/DL (7-18); CALCIUM LEVEL 8.5 MG/DL (8.8-10.2); CARBON DIOXIDE LEVEL 24 MEQ/L (21-32); CHLORIDE LEVEL 104 MEQ/L (98-107); CREATININE FOR GFR 0.93 MG/DL (0.70-1.30); GLOMERULAR FILTRATION RATE > 60.0 (>49); GLUCOSE, FASTING 175 MG/DL (70-100); MAGNESIUM LEVEL 2.1 MG/DL (1.8-2.4); POTASSIUM SERUM 4.4 MEQ/L (3.5-5.1); SODIUM LEVEL 136 MEQ/L (136-145); TOTAL PROTEIN 7.4 GM/DL (6.4-8.2)
[2020-08-22] MEDS ORDERED: CLOPIDOGREL 75 MG TAB PO SCH (09:00)
[2020-08-22] MEDS: SIMVASTATIN 40 MG TAB PO SCH (09:02)
[2020-08-22] MEDS: ISOSORBIDE MON. (IMDUR) 30 MG XR TAB PO SCH (09:03)
[2020-08-22] MEDS: DOCUSATE SODIUM 100MG CAPSULE PO SCH ×2 (09:04→21:23)
[2020-08-22] MEDS: TIMOLOL MALEATE 0.5% OPHTH SOLN 5 ML OS SCH ×3 (09:05→21:22)
[2020-08-22] MEDS: **hydrALAZINE HCL** 25 MG TAB PO SCH ×2 (09:05→21:24)
[2020-08-22] MEDS: HEPARIN SOD (PORCINE) 5000UNITS/ML 1ML VIAL/SYRINGE SC SCH ×2 (09:06→21:22)
[2020-08-22] MEDS: HumaLOG INSULIN (NovoLOG) PER UNIT SC SCH ×4 (09:08→21:23)
[2020-08-22] MEDS: ACETAMINOPHEN TAB 650MG DOSE (2X325MG) PO PRN ×2 (09:15→21:24)
[2020-08-22] MEDS: LEVEMIR (INSULIN DETEMIR) 1 UNITS/0.01ML SC SCH ×2 (09:28→21:23)
--- NOTE | 2020-08-22 11:08 | IPNPDOC ---
Text Note Date of Service The patient was seen on 08/22/20. NOTE Subjective: No any acute events. Patient denies fever, chills, chest pain, aysha sea, vomiting. Objective: GENERAL APPEARANCE: NAD HEENT: no scleral icterus, no JVD, EOMI CARDIOVASCULAR: S1S2 LUNGS: CTA ABDOMEN: soft & not tender w palpitation MUSCULOSKELETAL: no cyanosis, no swelling INTEGUMENT: no generalized pallor NEUROLOGICAL: cranial nerve function from 2-12 intact intact, follows commands, speech not dysarthric Assessment and plan Patient is 70 years old male with past history of type 2 diabetes, hypertension, hyperlipidemia presented to the hospital with an acute left foot gangrene. Left foot gangrene Continue vancomycin and Sinan [employer]ator [employer]ly[employer]ac[employer] team will proceed with amputation tomorrow Clopidogrel on hold Type 2 diabetes Well controlled, last HbA1c 6.6 Insulin sliding scale Diabetes diet Cataract Continue eyedrops Hypotension I added amlodipine 10 mg for better blood pressure control Continue home meds Hyperlipidemia Continue statin VS,Fishbone, I+O VS, Fishbone, I+O Laboratory Tests 08/21/20 18:16 08/22/20 05:51 Vital Signs Date Time Temp Pulse Resp B/P (MAP) Pulse Ox O2 Delivery O2 Flow Rate FiO2 08/22/20 09:05 164/58 08/22/20 06:00 98.4 74 20 97 Room Air I&O- Last 24 Hours up to 6 AM 08/22/20 06:00 Intake Total 785 ml Balance 785 ml MADIHA CASTRO DO August 22, 2020 11:08
[2020-08-23] VITALS (8 sets, daily range): BP systolic 124–166; BP diastolic 48–75
[2020-08-23] MEDS: PIPERACILLIN/TAZOBACTAM SOD 4.5 GM in D5W MINI-BAG PLUS 50 ML IV SCH ×4 (00:23→17:32)
[2020-08-23] MEDS: VANCOMYCIN HCL 1,000 MG, VIAL MATE ADAPTER 1 EACH in NS 250 ML IV SCH ×3 (01:11→16:20)
[2020-08-23] MEDS: HEPARIN SOD (PORCINE) 5000UNITS/ML 1ML VIAL/SYRINGE SC SCH ×2 (07:02→20:40)
[2020-08-23] MEDS: HumaLOG INSULIN (NovoLOG) PER UNIT SC SCH ×4 (07:30→20:43)
[2020-08-23 07:55] LABS: HEMATOCRIT 38.7 % (42.0-52.0); HEMOGLOBIN 12.7 g/dl (13.5-17.5); MEAN CORPUSCULAR HEMOGLOBIN 29.7 pg (27.0-33.0); MEAN CORPUSCULAR HGB CONC 32.8 g/dl (32.0-36.5); MEAN CORPUSCULAR VOLUME 90.4 fl (80.0-96.0); PLATELET COUNT, AUTOMATED 328 10^3/uL (150-450); RED BLOOD COUNT 4.28 10^6/uL (4.30-6.10)
[2020-08-23 08:14] LABS: BLOOD UREA NITROGEN 18 MG/DL (7-18); CALCIUM LEVEL 8.6 MG/DL (8.8-10.2); CARBON DIOXIDE LEVEL 26 MEQ/L (21-32); CHLORIDE LEVEL 106 MEQ/L (98-107); CREATININE FOR GFR 1.09 MG/DL (0.70-1.30); GLOMERULAR FILTRATION RATE > 60.0 (>49); GLUCOSE, FASTING 216 MG/DL (70-100); POTASSIUM SERUM 4.2 MEQ/L (3.5-5.1); SODIUM LEVEL 138 MEQ/L (136-145)
[2020-08-23] MEDS: LEVEMIR (INSULIN DETEMIR) 1 UNITS/0.01ML SC SCH ×2 (08:49→20:41)
[2020-08-23] MEDS ORDERED: MIDAZOLAM INJ 2MG/2ML VIAL (J2250 PER 1MG) As Ordered ONE (08:55)
[2020-08-23] MEDS ORDERED: fentaNYL 100 MCG/2 ML INJECTION (J3010) As Ordered ONE (08:55)
[2020-08-23] MEDS ORDERED: LIDOCAINE 2% 100MG/5ML SDV (FOR ANES.) As Ordered ONE (08:56)
[2020-08-23] MEDS ORDERED: propofoL 200 MG/20 ML VIAL As Ordered ONE (08:56)
[2020-08-23] MEDS ORDERED: ONDANSETRON 4MG/2ML VIAL As Ordered ONE (08:56)
[2020-08-23] MEDS: ISOSORBIDE MON. (IMDUR) 30 MG XR TAB PO SCH (09:03)
[2020-08-23] MEDS: DOCUSATE SODIUM 100MG CAPSULE PO SCH ×2 (09:03→20:42)
[2020-08-23] MEDS: **hydrALAZINE HCL** 25 MG TAB PO SCH ×2 (09:04→20:42)
[2020-08-23] MEDS: KETOROLAC 0.5% OPHTH SOLN OU SCH ×4 (09:04→20:39)
[2020-08-23] MEDS: SIMVASTATIN 40 MG TAB PO SCH (09:04)
[2020-08-23] MEDS: TIMOLOL MALEATE 0.5% OPHTH SOLN 5 ML OS SCH ×3 (09:04→20:40)
[2020-08-23] MEDS: BRIMONIDINE 0.15% OPHTH SOLN 5 ML OU SCH ×2 (09:04→20:41)
[2020-08-23] MEDS ORDERED: LORazepam 0.5 MG TAB PO ONE (09:20)
--- NOTE | 2020-08-23 09:22 | IPNPDOC ---
Text Note Date of Service The patient was seen on 08/23/20. NOTE Subjective: No any acute events. Patient stated that he tolerates procedure we ll. He reported that his left foot pain around 2 out of 10 Objective: GENERAL APPEARANCE: NAD HEENT: no scleral icterus, no JVD, EOMI CARDIOVASCULAR: S1S2 LUNGS: CTA ABDOMEN: soft & not tender w palpitation MUSCULOSKELETAL: no cyanosis, no swelling, left foot covered with dressing INTEGUMENT: no generalized pallor NEUROLOGICAL: cranial nerve function from 2-12 intact intact, follows commands, speech not dysarthric Assessment and plan Patient is 70 years old male with past history of type 2 diabetes, hypertension, hyperlipidemia presented to the hospital with an acute left foot gangrene. Left foot gangrene The left hallux and fifth toe was amputated yesterday Wound culture positive for MRSA and Serratia Continue vancomycin IV with levofloxacin by mouth day 3 of antibiotic therapy Clopidogrel on hold for today Type 2 diabetes Well controlled, last HbA1c 6.6 Insulin sliding scale Diabetes diet Cataract Continue eyedrops Hypotension I added amlodipine 10 mg for better blood pressure control Continue home meds Hyperlipidemia Continue statin Anxiety Ativan 0.5 mg once Obesity BMI 42.7 Complicated care VS,Fishbone, I+O VS, Fishbone, I+O Laboratory Tests 08/23/20 07:28 Vital Signs Date Time Temp Pulse Resp B/P (MAP) Pulse Ox O2 Delivery O2 Flow Rate FiO2 08/23/20 09:04 79 193/82 08/23/20 05:28 98.0 20 96 Room Air I&O- Last 24 Hours up to 6 AM 08/23/20 06:00 Intake Total 2430 ml Output Total 0 ml Balance 2430 ml MADIHA CASTRO DO August 23, 2020 09:22
[2020-08-23] MEDS ORDERED: BUPIVACAINE HCL 0.5% 10ML VIAL As Ordered ONE (09:27)
[2020-08-23] MEDS ORDERED: LIDOCAINE 1% MDV 20ML VIAL As Ordered ONE (09:27)
[2020-08-23] MEDS ORDERED: fentaNYL 100 MCG/2 ML INJECTION (J3010) IV PRN (10:45)
[2020-08-23] MEDS ORDERED: ONDANSETRON 4MG/2ML VIAL IV PRN (10:45)
[2020-08-23] MEDS ORDERED: HumaLOG INSULIN (NovoLOG) PER UNIT SC ONE (10:45)
[2020-08-23] MEDS ORDERED: METOCLOPRAMIDE INJ 10MG/2ML VIAL (J2765 PER 1) IV PRN (10:45)
[2020-08-23] MEDS ORDERED: LR 1,000 ML IV SCH (10:45)
--- NOTE | 2020-08-23 19:05 | ECGEPIP ---
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
--- NOTE | 2020-08-23 19:06 | RO ---
OPERATIVE NOTE DATE OF OPERATION: 08/23/2020 SURGEON: Pasha Fabian DPM LABEL REWINDER: None. PREOPERATIVE DIAGNOSIS: Left foot hallux and fifth toe gangrene. POSTOPERATIVE DIAGNOSIS: Left foot hallux and fifth toe gangrene. PROCEDURE: Left hallux and fifth toe amputation. ANESTHESIA: Monitored anesthesia care. PREOPERATIVE INJECTION: 13 cc of a one-to-one mixture of 1% lidocaine plain and 0.5% Marcaine plain. ESTIMATED BLOOD LOSS: Minimal. MATERIALS: 3-0 nylon. INJECTABLES: None. SPECIMENS: Left hallux and fifth toe. COMPLICATIONS: None. CONDITION: Stable. OPERATIVE INDICATIONS: Saurabh Abid is a 70-year-old diabetic male who presents for amputation of the left hallux and fifth toe. He has worsening conditions and gangrenous changes to these toes. He presents today for amputation. The patient's side and site were identified and marked in the preoperative area. Consent was reviewed and obtained. The risks, complications, and alternatives to the procedure were explained to the patient in detail and all questions were answered. PROCEDURE: The patient was brought to the operating room and placed on the operating room table in the supine position. Monitored anesthesia care was delivered by the anesthesia team. Preoperative injection of 13 cc of a one-to-one mixture of 1% lidocaine plain and 0.5% Marcaine plain were injected to the lft foot. The left foot was prepped and draped in normal sterile fashion. No tourniquet was used during the procedure. Both the hallux and fifth toe showed black necrotic bone and tissue. Using a #15 blade, the nonviable tissue was demarcated and the toe was disarticulated at the hallux metatarsophalangeal joint and the fifth toe metatarsophalangeal joint. Both toes were sent for pathology. Rongeurs were used to remove the cartilage from the first metatarsal head and the fifth metatarsal head. The sites were irrigated with normal saline. The amputation sites were loosely closed using 3-0 nylon. Sterile dressings were applied. The patient was brought to the PACU with vital signs stable and neurovascular status intact. He will be readmitted to the floor for continued antibiotics.
--- NOTE | 2020-08-23 19:06 | CR ---
CONSULTATION DATE: 08/23/2020 REASON FOR CONSULTATION: Left toe gangrene. HISTORY OF PRESENT ILLNESS: Saurabh Abdi is a patient well known to me who has been being followed for left hallux of fifth toe gangrenous digit. He has had ulcerations since April. He had an angiogram with stenting by Dr. Kuhn. However, she was not optimistic that she was able to improve his blood flow given his small vessel disease. He had been seen over the last few months with some small improvements but ultimately his toes continue to deteriorate particularly over the last week. He was seen in my office at which time I suggested amputation of the hallux. He at that time did not want to proceed. However, on the next day on Monday he called the office noting worsening redness and pain and was told to go to the ER for which he was admitted and is now amenable to amputations. PAST MEDICAL HISTORY: Significant for diabetes, hypertension, hyperlipidemia, cataract surgery, legally blind. SOCIAL HISTORY: Denies alcohol, former tobacco use. ALLERGIES: CONTRAST DYE AND IBUPROFEN. FAMILY HISTORY: Noncontributory. LABORATORY DATA: Reviewed. White blood cell count on admission is 12.6, ESR 71, today his white blood cell count is 10. Lower extremity examination: The left hallux and fifth toe have dry gangrenous changes, worse in appearance since being seen on . ASSESSMENT: A 70-year-old diabetic male with left hallux and fifth toe gangrene. PLAN: The patient to go to the OR now for amputation of left hallux and fifth toe..
[2020-08-23] MEDS: ACETAMINOPHEN TAB 650MG DOSE (2X325MG) PO PRN (20:44)
[2020-08-24] MEDS: PIPERACILLIN/TAZOBACTAM SOD 4.5 GM in D5W MINI-BAG PLUS 50 ML IV SCH ×2 (00:34→06:10)
[2020-08-24] MEDS ORDERED: MORPHINE 2 MG/ML 1ML VIAL (J2270) IV PRN (00:40)
[2020-08-24] MEDS: PERCOCET 5MG/325MG TAB PO PRN ×2 (00:49→18:30)
[2020-08-24] MEDS: VANCOMYCIN HCL 1,000 MG, VIAL MATE ADAPTER 1 EACH in NS 250 ML IV SCH ×2 (04:25→16:40)
[2020-08-24 06:00] VITALS: BP 159/57
[2020-08-24 07:52] LABS: BASO # 0.1 10^3/uL (0.0-0.2); BASO % 0.6 % (0.0-1.0); EOS # 0.5 10^3/uL (0.0-0.5); EOS % 4.6 % (0.0-3.0); HEMATOCRIT 38.4 % (42.0-52.0); HEMOGLOBIN 12.5 g/dl (13.5-17.5); LYMPH # 1.6 10^3/uL (1.5-5.0); MEAN CORPUSCULAR HGB CONC 32.6 g/dl (32.0-36.5); MEAN CORPUSCULAR VOLUME 92.1 fl (80.0-96.0); MONO # 1.1 10^3/uL (0.0-0.8); NEUTROPHILS # 7.5 10^3/uL (1.5-8.5); NEUTROPHILS % 69.4 % (36.0-66.0); PLATELET COUNT, AUTOMATED 306 10^3/uL (150-450); RED BLOOD COUNT 4.17 10^6/uL (4.30-6.10); WHITE BLOOD COUNT 10.9 10^3/uL (4.0-10.0)
[2020-08-24 08:07] LABS: ALBUMIN 2.9 GM/DL (3.2-5.2); ALT/SGPT 15 U/L (12-78); BILIRUBIN,TOTAL 0.4 MG/DL (0.2-1.0); BLOOD UREA NITROGEN 20 MG/DL (7-18); CALCIUM LEVEL 8.5 MG/DL (8.8-10.2); CARBON DIOXIDE LEVEL 26 MEQ/L (21-32); CHLORIDE LEVEL 106 MEQ/L (98-107); CREATININE FOR GFR 1.07 MG/DL (0.70-1.30); GLOMERULAR FILTRATION RATE > 60.0 (>49); GLUCOSE, FASTING 232 MG/DL (70-100); MAGNESIUM LEVEL 2.3 MG/DL (1.8-2.4); POTASSIUM SERUM 4.3 MEQ/L (3.5-5.1); SODIUM LEVEL 138 MEQ/L (136-145); TOTAL PROTEIN 6.9 GM/DL (6.4-8.2)
[2020-08-24] MEDS: HumaLOG INSULIN (NovoLOG) PER UNIT SC SCH ×4 (09:20→20:49)
[2020-08-24] MEDS: LEVEMIR (INSULIN DETEMIR) 1 UNITS/0.01ML SC SCH ×2 (09:20→21:00)
[2020-08-24] MEDS: HEPARIN SOD (PORCINE) 5000UNITS/ML 1ML VIAL/SYRINGE SC SCH ×2 (09:21→21:00)
[2020-08-24] MEDS: TIMOLOL MALEATE 0.5% OPHTH SOLN 5 ML OS SCH ×3 (09:21→20:59)
[2020-08-24] MEDS: DOCUSATE SODIUM 100MG CAPSULE PO SCH ×2 (09:22→20:59)
[2020-08-24] MEDS: ISOSORBIDE MON. (IMDUR) 30 MG XR TAB PO SCH (09:23)
[2020-08-24] MEDS: **hydrALAZINE HCL** 25 MG TAB PO SCH ×2 (09:24→20:59)
[2020-08-24] MEDS: SIMVASTATIN 40 MG TAB PO SCH (09:24)
[2020-08-24] MEDS: KETOROLAC 0.5% OPHTH SOLN OU SCH ×4 (09:27→21:00)
[2020-08-24] MEDS: BRIMONIDINE 0.15% OPHTH SOLN 5 ML OU SCH ×2 (09:30→20:59)
[2020-08-24] MEDS ORDERED: LevoFLOXacin 500 MG TABLET PO ONE (11:15)
[2020-08-24] MEDS: CLOPIDOGREL 75 MG TAB PO SCH (11:48)
[2020-08-24 14:00] VITALS: BP 162/66
[2020-08-24] MEDS: metroNIDAZOLE (FLAGYL) 500MG TABLET PO SCH ×2 (14:15→20:59)
--- NOTE | 2020-08-24 19:45 | IPN ---
PROGRESS NOTE DATE: 08/21/2020 SUBJECTIVE: The patient is seen and examined. He states his foot feels a little bit better. He denies other complaints. OBJECTIVE: PHYSICAL EXAMINATION: VITAL SIGNS: He has been afebrile. EXTREMITIES: Lower extremity examination agitated sites with some cyanosis at the distal amputation site. Otherwise incision is coapted. LABORATORY STUDIES: White blood cell count is 10.9. ASSESSMENT: A 70-year-old diabetic male with peripheral vascular disease status post hallux and fifth toe amputations. PLAN: 1. The patient is okay to be discharged on oral antibiotics. 2. He will follow up in the office with me 2 days after discharge.
[2020-08-24 22:00] VITALS: BP 169/69
[2020-08-25] MEDS: VANCOMYCIN HCL 1,000 MG, VIAL MATE ADAPTER 1 EACH in NS 250 ML IV SCH (04:50)
[2020-08-25 06:00] VITALS: BP 176/69
[2020-08-25] MEDS ORDERED: LevoFLOXacin 500 MG TABLET PO SCH (06:00)
[2020-08-25] MEDS: metroNIDAZOLE (FLAGYL) 500MG TABLET PO SCH (06:03)
[2020-08-25 06:21] LABS: BASO # 0.1 10^3/uL (0.0-0.2); BASO % 0.5 % (0.0-1.0); EOS # 0.4 10^3/uL (0.0-0.5); EOS % 4.2 % (0.0-3.0); HEMATOCRIT 38.3 % (42.0-52.0); HEMOGLOBIN 12.3 g/dl (13.5-17.5); LYMPH # 1.3 10^3/uL (1.5-5.0); LYMPH % 12.3 % (24.0-44.0); MEAN CORPUSCULAR HEMOGLOBIN 29.4 pg (27.0-33.0); MEAN CORPUSCULAR HGB CONC 32.1 g/dl (32.0-36.5); MEAN CORPUSCULAR VOLUME 91.6 fl (80.0-96.0); NEUTROPHILS # 7.3 10^3/uL (1.5-8.5); NEUTROPHILS % 72.3 % (36.0-66.0); PLATELET COUNT, AUTOMATED 311 10^3/uL (150-450); RED BLOOD COUNT 4.18 10^6/uL (4.30-6.10); WHITE BLOOD COUNT 10.2 10^3/uL (4.0-10.0)
[2020-08-25 06:53] LABS: ALBUMIN 3.1 GM/DL (3.2-5.2); ALT/SGPT 17 U/L (12-78); BILIRUBIN,TOTAL 0.5 MG/DL (0.2-1.0); BLOOD UREA NITROGEN 14 MG/DL (7-18); CALCIUM LEVEL 8.7 MG/DL (8.8-10.2); CARBON DIOXIDE LEVEL 26 MEQ/L (21-32); CHLORIDE LEVEL 103 MEQ/L (98-107); CREATININE FOR GFR 0.95 MG/DL (0.70-1.30); GLOMERULAR FILTRATION RATE > 60.0 (>49); GLUCOSE, FASTING 225 MG/DL (70-100); MAGNESIUM LEVEL 2.1 MG/DL (1.8-2.4); POTASSIUM SERUM 3.9 MEQ/L (3.5-5.1); SODIUM LEVEL 136 MEQ/L (136-145); TOTAL PROTEIN 7.3 GM/DL (6.4-8.2)
[2020-08-25] MEDS: BRIMONIDINE 0.15% OPHTH SOLN 5 ML OU SCH (08:51)
[2020-08-25] MEDS: TIMOLOL MALEATE 0.5% OPHTH SOLN 5 ML OS SCH (08:52)
[2020-08-25] MEDS: KETOROLAC 0.5% OPHTH SOLN OU SCH (08:53)
[2020-08-25] MEDS: LEVEMIR (INSULIN DETEMIR) 1 UNITS/0.01ML SC SCH (08:53)
[2020-08-25] MEDS: CLOPIDOGREL 75 MG TAB PO SCH (08:54)
[2020-08-25] MEDS: HEPARIN SOD (PORCINE) 5000UNITS/ML 1ML VIAL/SYRINGE SC SCH (08:54)
[2020-08-25] MEDS: ISOSORBIDE MON. (IMDUR) 30 MG XR TAB PO SCH (08:54)
[2020-08-25] MEDS: HumaLOG INSULIN (NovoLOG) PER UNIT SC SCH (08:54)
[2020-08-25 08:55] VITALS: BP 176/69
[2020-08-25] MEDS: SIMVASTATIN 40 MG TAB PO SCH (08:55)
[2020-08-25] MEDS: DOCUSATE SODIUM 100MG CAPSULE PO SCH (08:55)
[2020-08-25] MEDS: **hydrALAZINE HCL** 25 MG TAB PO SCH (08:55)
[2020-08-25] MEDS ORDERED: PERCOCET PO (10:08)
[2020-08-25] MEDS ORDERED: LEVO500T3 PO (10:08)
[2020-08-25] MEDS ORDERED: AMLO1TAB25 PO (10:08)
[2020-08-25] MEDS ORDERED: FLAG500T PO (10:08)
[2020-08-25] MEDS ORDERED: LINE1TAB PO (10:11)
--- NOTE | 2020-08-25 18:26 | DS.PDOC ---
Discharge Summary General Date of Admission August 21, 2020 at 21:11 Date of Discharge 08/25/20 Discharge Summary PROCEDURES PERFORMED DURING STAY: Left hallux and fifth toe amputation ADMITTING DIAGNOSES: Left foot gangrene Type 2 diabetes Cataract Hypotension Hyperlipidemia Anxiety Obesity DISCHARGE DIAGNOSES: Left foot gangrene Type 2 diabetes Cataract Hypotension Hyperlipidemia Anxiety Obesity COMPLICATIONS/CHIEF COMPLAINT: Cellulitis Of Left Foot. HISTORY OF PRESENT ILLNESS: 70-year-old male history of diabetes and diabetic foot ulcer follows with podiatry Dr Fabian. He presents to the hospital because of worsening left foot pain. Patient denies any fevers or chills denies chest pain or shortness of breath endorses that his foot pain is 9 out of 10 at times currently 2/10. The pain does not radiate described as achy. Worse when weight- bearing alleviated with rest and raising his leg. Patient has a known chronic left foot ulcer affecting his large toe and fifth toe. He has been getting weekly debridements with podiatry in the clinic last seen yesterday. It was recommended to him to machine operator hop picker antibiotics but he didn't pick them up. His foot has been getting more tender and more redness over the skin. Podiatry where broderick ramon is here and plan for an amputation on Monday. In the meantime patient will be admitted to medical service for IV antibiotics. HOSPITAL COURSE: During hospital stay the following issues addressed Left foot gangrene The left hallux and fifth toe was amputated by Dr. Roldan Wound culture positive for MRSA and Serratia Patient received treatment with vancomycin IV with levofloxacin by mouth Type 2 diabetes Well controlled, last HbA1c 6.6 Insulin sliding scale Diabetes diet Cataract Continue eyedrops Hypotension I added amlodipine 10 mg for better blood pressure control Continue home meds Hyperlipidemia Continue statin Anxiety Ativan 0.5 mg once Obesity BMI 42.7 Complicated care DISCHARGE MEDICATIONS: Please see below. ALLERGIES: Please see below. PHYSICAL EXAMINATION ON DISCHARGE: VITAL SIGNS: Please see below. GENERAL APPEARANCE: NAD HEENT: no scleral icterus, no JVD, EOMI CARDIOVASCULAR: S1S2 LUNGS: CTA ABDOMEN: soft & not tender w palpitation MUSCULOSKELETAL: no cyanosis, no swelling, left foot covered with dressing INTEGUMENT: no generalized pallor NEUROLOGICAL: cranial nerve function from 2-12 intact intact, follows commands, speech not dysarthric LABORATORY DATA: Please see below. IMAGING:INDICATION: left dm ulcer/infection r/o osteo. COMPARISON: None. TECHNIQUE: Two views FINDINGS: Significant degenerative changes are seen throughout the foot. There are plantar and retrocalcaneal heel spurs. There is no acute fracture this limited two view exam. IMPRESSION: Chronic changes limited exam PROGNOSIS: Fair ACTIVITY: [As tolerated]. DIET: Diabetes DISPOSITION: Home, Self-Care. ITEMS TO FOLLOWUP ON ON OUTPATIENT: Follow-up with rn transitional care and PCP DISCHARGE CONDITION: [Stable]. TIME SPENT ON DISCHARGE: 40 minutes. Vital Signs/I&Os Vital Signs Date Time Temp Pulse Resp B/P (MAP) Pulse Ox O2 Delivery O2 Flow Rate FiO2 08/25/20 08:55 176/69 08/25/20 08:54 70 08/25/20 06:00 98.1 20 97 Nasal Cannula 2.0 I&O- Last 24 Hours up to 6 AM 08/25/20 06:00 Intake Total 1710 ml Balance 1710 ml Laboratory Data Labs 24H Laboratory Tests 2 08/24/20 20:01: Bedside Glucose (Misc Panel) 246H 08/25/20 05:35: Immature Granulocyte % (Auto) 0.7, Neutrophils (%) (Auto) 72.3H, Lymphocytes (%) (Auto) 12.3L, Monocytes (%) (Auto) 10.0H, Eosinophils (%) (Auto) 4.2H, Basophils (%) (Auto) 0.5, Neutrophils # (Auto) 7.3, Lymphocytes # (Auto) 1.3L, Monocytes # (Auto) 1.0H, Eosinophils # (Auto) 0.4, Basophils # (Auto) 0.1, Nucleated Red Blood Cells % (auto) 0.0, Anion Gap 7L, Glomerular Filtration Rate > 60.0, Calcium Level 8.7L, Magnesium Level 2.1, Total Bilirubin 0.5, Aspartate Amino Transf (AST/SGOT) 12, Alanine Aminotransferase (ALT/SGPT) 17, Alkaline Phosphatase 58, Total Protein 7.3, Albumin 3.1L, Albumin/Globulin Ratio 0.7 CBC/BMP Laboratory Tests 08/25/20 05:35 FSBS Laboratory Tests Test 08/24/20 20:01 Range/Units Bedside Glucose (Misc Panel) 246 80-115 MG/DL Microbiology Microbiology 08/21/20 Gram Stain - Final, Resulted 08/21/20 Wound Culture - Final, Resulted Serratia Marcescens Staph.aureus Methicillin Resis 08/21/20 Anaerobic Culture, Resulted Pending 08/21/20 Blood Culture - Preliminary, Resulted No Growth after 72 hours. All specime... 08/21/20 Blood Culture - Preliminary, Resulted No Growth after 72 hours. All specime... Discharge Medications Scheduled Amlodipine Besylate (Amlodipine Besylate) 10 Mg Tablet, 10 MG PO DAILY Brimonidine Tartrate (Brimonidine Tartrate) 0.2% 5ML Drops, 1 DROP OS BID, (Reported) Clopidogrel Bisulfate (Plavix) 75 Mg Tablet, 75 MG PO DAILY, (Reported) Hydralazine HCl (Hydralazine HCl) 25 Mg Tablet, 25 MG PO BID, (Reported) Insulin NPH Human Isophane (Novolin N) 100 Unit/1 Ml Vial, 40 UNITS SC TID, (Reported) Insulin Regular, Human (Novolin R) 100 Unit/1 Ml Vial, 1 UNITS SC AC, (Reported) PER SLIDING SCALE Isosorbide Mononitrate (Isosorbide Mononitrate ER) 30 Mg Tab.er.24h, 30 MG PO DAILY, (Reported) Ketorolac Tromethamine (Ketorolac Tromethamine) 0.4% Drops, 1 DROP OS QID, (Reported) Levofloxacin (Levofloxacin) 500 Mg Tablet, 500 MG PO DAILY@06 Linezolid (Linezolid) 600 Mg Tablet, 1 TAB PO BID Metronidazole (Flagyl) 500 Mg Tablet, 500 MG PO Q8H Simvastatin (Simvastatin) 40 Mg Tablet, 40 MG PO DAILY, (Reported) Timolol Maleate (Timolol Maleate) 0.5% 5ML Drops, 1 DROP OS TID, (Reported) Scheduled PRN Oxycodone/Acetaminophen (Oxycodone-Acetaminophen 5-325) 1 Each Tablet, 2 TAB PO Q4HP PRN for moderate PAIN 5-7 Allergies Coded Allergies: ibuprofen (Verified Allergy, Severe, anaphylaxis, 05/15/20) Iodinated Contrast Media (Verified Adverse Reaction, Unknown, nausea, 05/15/20) MADIHA CASTRO DO August 25, 2020 18:26
== END 2020-08-25 11:20 | disposition home or self-care (01) | DRG 617 ==
LOC: M ED 15:22 → M ED INP 21:11 → EEVIPCON 21:11 → M MS5PR 08-22 00:27
PROVIDERS: ADMIT Family Medicine; ATTEND Internal Medicine
PROC: 0Y6Y0Z0 Detachment at Left 5th Toe, Complete, Open Approach (ICD-10-PCS; 2020-08-23)
PROC: 0Y6Q0Z0 Detachment at Left 1st Toe, Complete, Open Approach (ICD-10-PCS; principal; 2020-08-23 08:00)
DX: E11.621 Type 2 diabetes mellitus with foot ulcer (principal); E11.52 Type 2 diabetes mellitus with diabetic peripheral angiopathy with gangrene; L03.116 Cellulitis of left lower limb; Z68.41 Body mass index [BMI] 40.0-44.9, adult; I96 Gangrene, not elsewhere classified; L97.529 Non-pressure chronic ulcer of other part of left foot with unspecified severity; E66.9 Obesity, unspecified; I95.9 Hypotension, unspecified; E78.5 Hyperlipidemia, unspecified; F41.9 Anxiety disorder, unspecified; Z79.4 Long term (current) use of insulin; Z79.899 Other long term (current) drug therapy; Z88.6 Allergy status to analgesic agent; Z91.041 Radiographic dye allergy status; H54.8 Legal blindness, as defined in USA

== ENCOUNTER → 2020-09-01 | Outpatient (REF) | payer MEDICARE ==
[~2020-09-01] MED LIST changes: +AMLO1TAB25 PO; +FLAG500T PO; +LINE1TAB PO; +PERCOCET PO; +PLAV1TAB2 PO
== END ==
LOC: M LAB REF 16:50
PROVIDERS: ATTEND Nurse Practitioner Family
DX: R19.7 Diarrhea, unspecified (principal)

== ENCOUNTER → 2020-09-22 | Outpatient (POV) | payer MEDICARE ==
[~2020-09-22] VITALS: Ht 180.3 cm; Wt 135.0 kg
[2020-09-22 13:26] VITALS: BP 168/80
--- NOTE | 2020-09-23 13:54 | IRCOV ---
[facility] IR Consult Office Visit IR Consult Office Visit DATE: Sep 22, 2020 REASON FOR CONSULTATION/CHIEF COMPLAINT: Nonhealing left hallux amputation site. HISTORY OF PRESENT ILLNESS: 70-year-old male with poorly controlled diabetes, referred by wound care for nonhealing left great toe amputation site. Patient had the left fifth toe and big toe amputated in August 2020 due to gangrene. He states the fifth toe amputation site has been healing well. He thinks the big toe amputation site does show signs of healing and bleeds profusely when intervened on, in wound care. Patient underwent left lower extremity angiography, angioplasty and stenting prior to the amputation, by Dr. Burns, in May 2020. At that time, the SFA was recanalized and stented with improved inflow. However, there was persistent popliteal artery occlusion with no below-knee runoff. Patient states he uses an exercise bike to try to improve the circulation in his legs. Patient denies intermittent claudication or rest pain with elevation. Patient denies chest pain, shortness of breath, paroxysmal nocturnal dyspnea or orthopnea. ALLERGIES: Please see below. HOME MEDICATIONS: Please see below. PAST MEDICAL HISTORY: Diabetes Cellulitis Peripheral vascular disease Left foot gangrene Neuropathy Hypertension PAST SURGICAL HISTORY: Left fifth and big toe amputations FAMILY HISTORY: Noncontributory. SOCIAL HISTORY: Ex-smoker. Denies alcohol or drugs. REVIEW OF SYSTEMS: Otherwise negative. PHYSICAL EXAMINATION: VITAL SIGNS: Please see below. GENERAL APPEARANCE: Appears well. Comfortable at rest. Central obesity. HEENT: No scleral icterus. RESPIRATORY: Normal breathing at rest. CARDIOVASCULAR: Normal rate. ABDOMEN: Distended. Soft nontender. EXTREMITIES: Left lower extremity: Left hallux and metatarsal amputation sites dressed. Edema to the thigh. Skin warm to touch. Motor 4 out of 5. Sensation intact. Femoral pulse 2+. Popliteal pulse nonpalpable. DP/PT nonpalpable. Right lower extremity: Edema to the thigh. Skin warm to touch. Motor 4 out of 5. Sensation intact. Femoral pulse 2+. Popliteal pulse nonpalpable. DP/PT + NEUROLOGICAL: Alert and oriented. PSYCHIATRIC: Appropriate to circumstance. LABORATORY DATA: 08/25/2020 hemoglobin 12.3 hematocrit 38.3 WBC 10.2 platelets 311 sodium 136 potassium 3.9 BUN 14 creatinine 0.95 GFR greater than 60 04/23/2020 LDL 87 05/16/2020 hemoglobin A1c 7.2 Imaging: I personally reviewed the bilateral lower extremity arterial ultrasound performed 07/07/2020. This was post angioplasty and stenting of the SFA, but prior to the fifth metatarsal and hallux amputations. Left lower extremity popliteal artery occlusion and no named vessel runoff below the knee. Patent left femoral stent. ASSESSMENT/PLAN: 70-year-old male with critical limb ischemia of the left lower extremity and nonhealing hallux amputation site. The amputation site may not heal without improvement in below-knee flow. For this, we would have to access the left lower extremity antegrade at the groin and retrograde via pedal access, to try to open up any of the 3 below-knee runoff vessels to improve supply to the foot. We discussed the risks and benefits of the procedure, however the patient does not want to proceed at this time. He he has his mind fixated on the hyperbaric oxygen chamber and thinks he might be able to avoid any further arterial intervention. He would like to discuss this further with Dr. Sarah and then let us know if he wants to proceed with the procedure. I advised him t hat Dr. Sarah personally called me because he is concerned about the circulation in his left lower extremity and the nonhealing of the amputation site. We will wait to hear from the patient. I spent 45 minutes reviewing patient's records, imaging in consultation with the patient. Thank you for this referral. Cc Dr. Sarah Allergies Coded Allergies: ibuprofen (Verified Allergy, Severe, anaphylaxis, 05/15/20) Iodinated Contrast Media (Verified Adverse Reaction, Unknown, nausea, 05/15/20) Home Medications Scheduled Amlodipine Besylate (Amlodipine Besylate), 10 MG PO DAILY Brimonidine Tartrate (Brimonidine Tartrate), 1 DROP OS BID, (Reported) Clopidogrel Bisulfate (Plavix), 75 MG PO DAILY, (Reported) Hydralazine HCl (Hydralazine HCl), 25 MG PO BID, (Reported) Insulin NPH Human Isophane (Novolin N), 40 UNITS SC TID, (Reported) Insulin Regular, Human (Novolin R), 1 UNITS SC AC, (Reported) Isosorbide Mononitrate (Isosorbide Mononitrate ER), 30 MG PO DAILY, (Reported) Ketorolac Tromethamine (Ketorolac Tromethamine), 1 DROP OS QID, (Reported) Levofloxacin (Levofloxacin), 500 MG PO DAILY@06 Linezolid (Linezolid), 1 TAB PO BID Metronidazole (Flagyl), 500 MG PO Q8H Simvastatin (Simvastatin), 40 MG PO DAILY, (Reported) Timolol Maleate (Timolol Maleate), 1 DROP OS TID, (Reported) Scheduled PRN Oxycodone/Acetaminophen (Oxycodone-Acetaminophen 5-325), 2 TAB PO Q4HP PRN for moderate PAIN 5-7 VS, I&O, 24H, Fishbone Vital Signs/I&O Vital Signs Date Time Temp Pulse Resp B/P (MAP) Pulse Ox O2 Delivery O2 Flow Rate FiO2 09/22/20 13:26 98.0 76 20 168/80 (109) 97 Room Air AEC TALLEY MD Sep 23, 2020 13:54
== END ==
LOC: M IRPOV 13:08
PROVIDERS: ATTEND Radiology Diagnostic Radiology
DX: T87.89 Other complications of amputation stump (principal); E11.40 Type 2 diabetes mellitus with diabetic neuropathy, unspecified; E11.51 Type 2 diabetes mellitus with diabetic peripheral angiopathy without gangrene; I10 Essential (primary) hypertension; I73.9 Peripheral vascular disease, unspecified; Z79.4 Long term (current) use of insulin; Z79.899 Other long term (current) drug therapy; Z88.6 Allergy status to analgesic agent; Z89.412 Acquired absence of left great toe; Z89.422 Acquired absence of other left toe(s); Z91.041 Radiographic dye allergy status

== ENCOUNTER 2020-10-03 10:59 | Emergency (ER) | payer MEDICARE ==
[~2020-10-03] VITALS: Ht 180.3 cm; Wt 133.6 kg
--- NOTE | 2020-10-03 11:43 | REP ---
INDICATION: CHEST PAIN. COMPARISON: None. TECHNIQUE: Portable FINDINGS: The technique utilized in obtaining the radiograph has magnified the cardiac silhouette and accentuated the interstitial markings. There appears to be mild cardiomegaly accentuated by technique. Lung arcos are clear and the pleural angles are sharp. The osseous structures are within normal limits. IMPRESSION: There is no acute cardiopulmonary disease. Mild cardiomegaly cannot be ruled <Electronically signed by Inocencio Yates > 10/03/20 [id number]
[2020-10-03 11:59] LABS: BASO # 0.1 10^3/uL (0.0-0.2); BASO % 0.8 % (0.0-1.0); EOS # 0.8 10^3/uL (0.0-0.5); EOS % 10.2 % (0.0-3.0); HEMATOCRIT 40.7 % (42.0-52.0); HEMOGLOBIN 13.5 g/dl (13.5-17.5); LYMPH # 1.5 10^3/uL (1.5-5.0); LYMPH % 18.7 % (24.0-44.0); MEAN CORPUSCULAR HEMOGLOBIN 30.1 pg (27.0-33.0); MEAN CORPUSCULAR HGB CONC 33.2 g/dl (32.0-36.5); MEAN CORPUSCULAR VOLUME 90.8 fl (80.0-96.0); MONO # 0.8 10^3/uL (0.0-0.8); MONO % 9.4 % (2.0-8.0); NEUTROPHILS # 4.8 10^3/uL (1.5-8.5); NEUTROPHILS % 60.4 % (36.0-66.0); PLATELET COUNT, AUTOMATED 300 10^3/uL (150-450); RED BLOOD COUNT 4.48 10^6/uL (4.30-6.10)
[2020-10-03 12:22] LABS: ERYTHROCYTE SEDIMENTATION RATE 40 mm/hr (0-20)
[2020-10-03 12:30] LABS: ALBUMIN 3.6 GM/DL (3.2-5.2); ALT/SGPT 26 U/L (12-78); BILIRUBIN,DIRECT 0.1 MG/DL (0.0-0.2); BILIRUBIN,TOTAL 0.4 MG/DL (0.2-1.0); BLOOD UREA NITROGEN 22 MG/DL (7-18); C REACTIVE PROTEIN QUANTITATIV 0.72 MG/DL (0.00-0.30); CARBON DIOXIDE LEVEL 23 MEQ/L (21-32); CHLORIDE LEVEL 111 MEQ/L (98-107); CREATININE FOR GFR 1.05 MG/DL (0.70-1.30); GLOMERULAR FILTRATION RATE > 60.0 (>49); GLUCOSE, FASTING 164 MG/DL (70-100); LIPASE 403 U/L (73-393); NT-PRO BNP 382 PG/ML (<125); POTASSIUM SERUM 4.1 MEQ/L (3.5-5.1); SODIUM LEVEL 140 MEQ/L (136-145); TOTAL PROTEIN 7.6 GM/DL (6.4-8.2)
--- NOTE | 2020-10-03 13:09 | REP ---
INDICATION: edema. COMPARISON: None. TECHNIQUE: Multiple ultrasonographic images of the deep venous structures of the bilateral lower extremity were obtained from the inguinal ligament to the ankle. Venous compression techniques, color doppler imaging, and augmentation techniques were also obtained where appropriate. As per the ACR guidelines the anterior tibial vein can not be effectively evaluated. Only compression techniques in the calf on the peroneal and posterior tibial veins was attempted/performed. FINDINGS: There is no abnormal echogenic material seen within any of the visualized deep venous structures that would suggest acute thrombosis. Coaptation is unremarkable throughout. Doppler interrogation shows an expected response to respiratory variability and augmentation in the thigh. Compression techniques in the calf showed no abnormality. The color flow images show what appears to be a normal vascular pattern throughout the thigh. IMPRESSION: There is no ultrasonographic evidence of deep venous thrombosis involving any of the visualized deep venous structures of the bilateral lower extremity as described above. <Electronically signed by Inocencio Yates > 10/03/20 [id number]
[2020-10-03 14:04] LABS: CK-MB VALUE MASS 2.9 NG/ML (<3.6); CPK CREATINE PHOSPHOKINASE 128 U/L (39-308); MB/CK RELATIVE INDEX 2.27 (< OR =4); TROPONIN I < 0.02 NG/ML (< 0.10)
[2020-10-03 16:38] LABS: CK-MB VALUE MASS 3.2 NG/ML (<3.6); MB/CK RELATIVE INDEX 2.54 (< OR =4); TROPONIN I 0.06 NG/ML (< 0.10)
[2020-10-03 17:01] VITALS: BP 145/67
--- NOTE | 2020-10-04 14:19 | ECGEPIP ---
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
--- NOTE | 2020-10-04 14:24 | ECGEPIP ---
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
== END 2020-10-03 18:13 | disposition home or self-care (01) ==
LOC: M ED 10:59
DX: R07.9 Chest pain, unspecified (principal); E10.9 Type 1 diabetes mellitus without complications; I10 Essential (primary) hypertension; E78.5 Hyperlipidemia, unspecified; Z88.6 Allergy status to analgesic agent

== ENCOUNTER → 2020-10-16 | Outpatient (REF) | payer MEDICARE | LOC: M LAB REF 15:46 | PROVIDERS: ATTEND Surgery | DX: T81.30XA Disruption of wound, unspecified, initial encounter (principal); L97.522 Non-pressure chronic ulcer of other part of left foot with fat layer exposed ==

== ENCOUNTER → 2020-10-23 | Outpatient (REF) | payer MEDICARE | LOC: M LAB REF 18:14 | PROVIDERS: ATTEND Physician Assistant | DX: T81.30XA Disruption of wound, unspecified, initial encounter (principal) ==

== ENCOUNTER → 2020-10-26 | Outpatient (REF) | payer MEDICARE ==
[2020-10-26 13:35] LABS: BASO # 0.1 10^3/uL (0.0-0.2); BASO % 0.6 % (0.0-1.0); EOS # 1.2 10^3/uL (0.0-0.5); EOS % 10.6 % (0.0-3.0); LYMPH # 1.6 10^3/uL (1.5-5.0); LYMPH % 14.6 % (24.0-44.0); MEAN CORPUSCULAR HEMOGLOBIN 29.8 pg (27.0-33.0); MEAN CORPUSCULAR HGB CONC 32.6 g/dl (32.0-36.5); MEAN CORPUSCULAR VOLUME 91.5 fl (80.0-96.0); MONO # 1.2 10^3/uL (0.0-0.8); MONO % 10.9 % (2.0-8.0); NEUTROPHILS % 62.7 % (36.0-66.0); PLATELET COUNT, AUTOMATED 347 10^3/uL (150-450); WHITE BLOOD COUNT 11.2 10^3/uL (4.0-10.0)
[2020-10-26 14:06] LABS: ALBUMIN 3.7 GM/DL (3.2-5.2); ALT/SGPT 23 U/L (12-78); BILIRUBIN,TOTAL 0.3 MG/DL (0.2-1.0); BLOOD UREA NITROGEN 27 MG/DL (7-18); CALCIUM LEVEL 9.5 MG/DL (8.8-10.2); CARBON DIOXIDE LEVEL 27 MEQ/L (21-32); CHLORIDE LEVEL 104 MEQ/L (98-107); CREATININE FOR GFR 1.01 MG/DL (0.70-1.30); GLOMERULAR FILTRATION RATE > 60.0 (>49); GLUCOSE, FASTING 65 MG/DL (70-100); POTASSIUM SERUM 4.5 MEQ/L (3.5-5.1); SODIUM LEVEL 139 MEQ/L (136-145); TOTAL PROTEIN 8.3 GM/DL (6.4-8.2)
== END ==
LOC: M SHH 13:03
PROVIDERS: ATTEND Family Medicine
DX: E11.40 Type 2 diabetes mellitus with diabetic neuropathy, unspecified (principal)

== ENCOUNTER → 2021-02-02 | Outpatient (REF) | payer MEDICARE ==
[2021-02-02 14:45] LABS: HEMOGLOBIN A1c 6.5 %
== END ==
LOC: M LABDRWAD 12:36
PROVIDERS: ATTEND Nurse Practitioner Family
DX: E11.40 Type 2 diabetes mellitus with diabetic neuropathy, unspecified (principal)

== ENCOUNTER → 2021-02-02 | Outpatient (REF) | payer MEDICARE ==
[2021-02-02 14:24] LABS: HEMATOCRIT 40.8 % (42.0-52.0); HEMOGLOBIN 13.2 g/dl (13.5-17.5); MEAN CORPUSCULAR HEMOGLOBIN 30.4 pg (27.0-33.0); MEAN CORPUSCULAR HGB CONC 32.4 g/dl (32.0-36.5); PLATELET COUNT, AUTOMATED 293 10^3/uL (150-450); RED BLOOD COUNT 4.34 10^6/uL (4.30-6.10); WHITE BLOOD COUNT 9.6 10^3/uL (4.0-10.0)
[2021-02-02 14:57] LABS: CALCIUM LEVEL 8.6 MG/DL (8.8-10.2); CHOLESTEROL RISK RATIO 3.194 (<5); CREATININE FOR GFR 1.29 MG/DL (0.70-1.30); POTASSIUM SERUM 4.5 MEQ/L (3.5-5.1)
== END ==
LOC: M LABDRWAD 12:34
PROVIDERS: ATTEND Internal Medicine Cardiovascular Disease
DX: R07.9 Chest pain, unspecified (principal)

== ENCOUNTER → 2021-02-11 | Outpatient (REF) | payer MEDICARE ==
[2021-02-11 14:45] LABS: BLOOD UREA NITROGEN 29 MG/DL (7-18); CALCIUM LEVEL 9.3 MG/DL (8.8-10.2); CARBON DIOXIDE LEVEL 27 MEQ/L (21-32); CHLORIDE LEVEL 109 MEQ/L (98-107); CREATININE FOR GFR 1.25 MG/DL (0.70-1.30); GLOMERULAR FILTRATION RATE > 60.0 (>49); GLUCOSE, FASTING 114 MG/DL (70-100); NT-PRO BNP 367 PG/ML (<125); POTASSIUM SERUM 4.4 MEQ/L (3.5-5.1); SODIUM LEVEL 140 MEQ/L (136-145)
== END ==
LOC: M LABDRWAD 12:30
PROVIDERS: ATTEND Nurse Practitioner Family
DX: I50.9 Heart failure, unspecified (principal)

== ENCOUNTER → 2021-05-10 | Outpatient (CLI) | payer MEDICARE ==
[~2021-05-10] MED LIST changes: -LEVO500T3 PO; +LEVO500T4 PO
== END ==
LOC: M LABSMTC 09:41
PROVIDERS: ATTEND Internal Medicine Cardiovascular Disease
DX: Z20.822 Contact with and (suspected) exposure to COVID-19 (principal)

== ENCOUNTER 2021-06-12 16:58 | Emergency (ER) | payer MEDICARE ==
[~2021-06-12] VITALS: Ht 176.5 cm; Wt 140.4 kg
[2021-06-12] MEDS ORDERED: FURO20TA2 (17:23)
[2021-06-12] MEDS ORDERED: FARX1TAB5 (17:23)
[2021-06-12] MEDS ORDERED: WARF4TAB52 (17:23)
[2021-06-12] MEDS ORDERED: FAMO20TA5 (17:23)
[2021-06-12] MEDS ORDERED: WARF4TAB51 (17:23)
[2021-06-12] MEDS ORDERED: AMIO400T7 (17:23)
[2021-06-12] MEDS ORDERED: METO1TAB32 (17:23)
[2021-06-12] MEDS ORDERED: ATOR40TA75 (17:23)
[2021-06-12] MEDS ORDERED: LOSA50TA28 (17:23)
[2021-06-12 17:44] LABS: BASO # 0.1 10^3/uL (0.0-0.2); BASO % 0.7 % (0.0-1.0); EOS # 0.5 10^3/uL (0.0-0.5); HEMATOCRIT 40.8 % (42.0-52.0); HEMOGLOBIN 13.2 g/dl (13.5-17.5); LYMPH # 1.6 10^3/uL (1.5-5.0); LYMPH % 17.8 % (24.0-44.0); MEAN CORPUSCULAR HEMOGLOBIN 30.1 pg (27.0-33.0); MEAN CORPUSCULAR HGB CONC 32.4 g/dl (32.0-36.5); MEAN CORPUSCULAR VOLUME 92.9 fl (80.0-96.0); MONO # 0.8 10^3/uL (0.0-0.8); MONO % 8.9 % (2.0-8.0); NEUTROPHILS # 5.8 10^3/uL (1.5-8.5); NEUTROPHILS % 66.4 % (36.0-66.0); PLATELET COUNT, AUTOMATED 410 10^3/uL (150-450); RED BLOOD COUNT 4.39 10^6/uL (4.30-6.10); WHITE BLOOD COUNT 8.8 10^3/uL (4.0-10.0)
[2021-06-12 17:48] LABS: INR 2.3; PROTHROMBIN TIME 25.7 SECONDS (12.7-14.5)
[2021-06-12 17:49] LABS: PARTIAL THROMBOPLASTIN TIME 47.5 SECONDS (25.9-37.0)
[2021-06-12 17:57] LABS: ALBUMIN 3.4 GM/DL (3.2-5.2); BILIRUBIN,DIRECT 0.1 MG/DL (0.0-0.2); BILIRUBIN,TOTAL 0.4 MG/DL (0.2-1.0); CALCIUM LEVEL 8.6 MG/DL (8.8-10.2); CREATININE FOR GFR 1.66 MG/DL (0.70-1.30); GLOMERULAR FILTRATION RATE 43.9 (>49); POTASSIUM SERUM 4.8 MEQ/L (3.5-5.1); TOTAL PROTEIN 7.4 GM/DL (6.4-8.2)
[2021-06-12 17:58] LABS: CK-MB VALUE MASS 2.3 NG/ML (<3.6); MB/CK RELATIVE INDEX 2.56 (< OR =4)
[2021-06-12] MEDS ORDERED: EQ HPAD TOP (20:09)
[2021-06-12 20:14] LABS: MAGNESIUM LEVEL 2.4 MG/DL (1.8-2.4)
[2021-06-12 20:16] VITALS: BP 156/63
== END 2021-06-12 20:21 | disposition home or self-care (01) ==
LOC: M ED 16:58
DX: R94.31 Abnormal electrocardiogram [ECG] [EKG] (principal); K92.1 Melena; K64.9 Unspecified hemorrhoids; E11.9 Type 2 diabetes mellitus without complications; I10 Essential (primary) hypertension; F17.200 Nicotine dependence, unspecified, uncomplicated; Z79.01 Long term (current) use of anticoagulants; Z79.4 Long term (current) use of insulin; Z91.048 Other nonmedicinal substance allergy status; Z88.6 Allergy status to analgesic agent

== ENCOUNTER → 2021-07-02 | Outpatient (REF) | payer MEDICARE ==
[~2021-07-02] MED LIST changes: +AMIO400T7; +ATOR40TA75; +EQ HPAD TOP; +FAMO20TA5; +FARX1TAB5; +FURO20TA2; +LOSA50TA28; +METO1TAB32; +WARF4TAB51; +WARF4TAB52
[2021-07-02 13:18] LABS: HEMOGLOBIN A1c 6.8 %
== END ==
LOC: M LABDRWAD 12:26
PROVIDERS: ATTEND Family Medicine
DX: E11.3511 Type 2 diabetes mellitus with proliferative diabetic retinopathy with macular edema, right eye (principal)

== ENCOUNTER → 2021-12-13 | Outpatient (CLI) | payer MEDICARE ==
[~2021-12-13] MED LIST changes: +LEVO1TAB39 PO; -LEVO500T4 PO
[2021-12-13 15:39] LABS: ALT/SGPT 30 U/L (12-78); BILIRUBIN,TOTAL 0.7 MG/DL (0.2-1.0); BLOOD UREA NITROGEN 27 MG/DL (7-18); CARBON DIOXIDE LEVEL 26 MEQ/L (21-32); CHLORIDE LEVEL 106 MEQ/L (98-107); CHOLESTEROL LEVEL 129 MG/DL (<200); CREATININE FOR GFR 1.22 MG/DL (0.70-1.30); GLOMERULAR FILTRATION RATE > 60.0 (>49); GLUCOSE, FASTING 140 MG/DL (70-100); HDL CHOLESTEROL 36 MG/DL (>40); POTASSIUM SERUM 4.3 MEQ/L (3.5-5.1); SODIUM LEVEL 139 MEQ/L (136-145); TRIGLYCERIDES LEVEL 175 MG/DL (<150)
[2021-12-13 15:40] LABS: ALBUMIN 3.6 GM/DL (3.2-5.2); CHOLESTEROL RISK RATIO 3.583 (<5); LDL CHOLESTEROL 58 MG/DL (<100); NON-HDL-C 93 MG/DL; TOTAL PROTEIN 7.8 GM/DL (6.4-8.2)
[2021-12-13 20:39] LABS: HEMOGLOBIN A1c 7.2 %
== END ==
LOC: M ADAMS 08:36
PROVIDERS: ATTEND Nurse Practitioner Family
DX: I25.10 Atherosclerotic heart disease of native coronary artery without angina pectoris (principal); I10 Essential (primary) hypertension; E11.3511 Type 2 diabetes mellitus with proliferative diabetic retinopathy with macular edema, right eye

== ENCOUNTER → 2022-04-27 | Outpatient (REF) | payer MEDICARE ==
[~2022-04-27] MED LIST changes: +CLOP75TA99 PO; -PLAV1TAB2 PO
[2022-04-27 13:52] LABS: HEMOGLOBIN A1c 8.4 % (4.0-6.0)
== END ==
LOC: M LABDRWAD 12:48
PROVIDERS: ATTEND Nurse Practitioner Family
DX: E11.3511 Type 2 diabetes mellitus with proliferative diabetic retinopathy with macular edema, right eye (principal)

== ENCOUNTER → 2022-07-29 | Outpatient (CLI) | payer MEDICARE ==
[~2022-07-29] MED LIST changes: +TIMO0.5S20 OS; -TIMO0.5S29 OS
[2022-07-29 14:00] LABS: ALBUMIN 3.8 G/DL (3.2-5.2); ALKALINE PHOSPHATASE 69 U/L (46-116); ALT/SGPT 32 U/L (7.0-40); AST/SGOT 25 U/L (<34); BILIRUBIN,TOTAL 0.7 MG/DL (0.3-1.2); BLOOD UREA NITROGEN 26 MG/DL (9-23); CALCIUM LEVEL 9.2 MG/DL (8.3-10.6); CARBON DIOXIDE LEVEL 26 MMOL/L (20-31); CHLORIDE LEVEL 106 MMOL/L (98-107); CHOLESTEROL LEVEL 120 MG/DL (<200); CHOLESTEROL RISK RATIO 3.34 (<5); CREATININE FOR GFR 1.04 MG/DL (0.70-1.30); GLOMERULAR FILTRATION RATE > 60.0 (>42); GLUCOSE, FASTING 138 MG/DL (74-106); HDL CHOLESTEROL 35.9 MG/DL (>40); LDL CHOLESTEROL 51.9 MG/DL (<100); NON-HDL-C 84.1 MG/DL; POTASSIUM SERUM 4.1 MMOL/L (3.5-5.1); SODIUM LEVEL 142 MMOL/L (136-145); TOTAL PROTEIN 7.4 G/DL (5.7-8.2); TRIGLYCERIDES LEVEL 161 MG/DL (<150)
[2022-07-29 16:21] LABS: HEMOGLOBIN A1c 8.5 % (4.0-6.0)
== END ==
LOC: M LABDRWAD 08:17
PROVIDERS: ATTEND Nurse Practitioner Family
DX: E11.3511 Type 2 diabetes mellitus with proliferative diabetic retinopathy with macular edema, right eye (principal); I10 Essential (primary) hypertension; E78.2 Mixed hyperlipidemia

== ENCOUNTER → 2022-10-28 | Outpatient (REF) | payer MEDICARE ==
[2022-10-28 13:44] LABS: HEMOGLOBIN A1c 8.5 % (4.0-6.0)
== END ==
LOC: M LABDRWAD 12:13
PROVIDERS: ATTEND Nurse Practitioner Family
DX: E11.3511 Type 2 diabetes mellitus with proliferative diabetic retinopathy with macular edema, right eye (principal)

== ENCOUNTER → 2022-12-05 | Outpatient (CLI) | payer MEDICARE ==
[~2022-12-05] MED LIST changes: +AMIO400T2; -AMIO400T7
== END ==
LOC: M PLAIMG 14:48
PROVIDERS: ATTEND Nurse Practitioner Family
DX: S91.331A Puncture wound without foreign body, right foot, initial encounter (principal); X58.XXXA Exposure to other specified factors, initial encounter; Y92.9 Unspecified place or not applicable

== ENCOUNTER → 2023-09-28 | Outpatient (REF) | payer MEDICARE, OTHER ==
[~2023-09-28] MED LIST changes: -HYDR25TA PO; +HYDR25TA88 PO
[2023-09-28 14:41] LABS: BASO # 0.1 10^3/uL (0.0-0.2); BASO % 0.5 % (0.0-1.0); EOS # 0.3 10^3/uL (0.0-0.5); EOS % 3.2 % (0.0-3.0); HEMATOCRIT 44.2 % (42.0-52.0); HEMOGLOBIN 14.5 g/dl (13.5-17.5); LYMPH # 1.4 10^3/uL (1.5-5.0); LYMPH % 14.3 % (24.0-44.0); MEAN CORPUSCULAR HEMOGLOBIN 32.1 pg (27.0-33.0); MEAN CORPUSCULAR HGB CONC 32.8 g/dl (32.0-36.5); MEAN CORPUSCULAR VOLUME 97.8 fl (80.0-96.0); MONO # 1.1 10^3/uL (0.0-0.8); MONO % 11.3 % (2.0-8.0); NEUTROPHILS # 7.1 10^3/uL (1.5-8.5); NEUTROPHILS % 70.4 % (36.0-66.0); PLATELET COUNT, AUTOMATED 287 10^3/uL (150-450); RED BLOOD COUNT 4.52 10^6/uL (4.30-6.10)
[2023-09-28 14:42] LABS: ALBUMIN 3.6 G/DL (3.2-5.2); ALKALINE PHOSPHATASE 74 U/L (46-116); ALT/SGPT 20 U/L (7.0-40); AST/SGOT 14 U/L (<34); BILIRUBIN,TOTAL 0.7 MG/DL (0.3-1.2); BLOOD UREA NITROGEN 22 MG/DL (9-23); CALCIUM LEVEL 9.3 MG/DL (8.3-10.6); CARBON DIOXIDE LEVEL 26 MMOL/L (20-31); CHLORIDE LEVEL 104 MMOL/L (98-107); CHOLESTEROL LEVEL 107 MG/DL (<200); CHOLESTEROL RISK RATIO 3.17 (<5); CREATININE FOR GFR 0.94 MG/DL (0.70-1.30); GLOMERULAR FILTRATION RATE > 60.0 (>42); GLUCOSE, FASTING 200 MG/DL (74-106); HDL CHOLESTEROL 33.7 MG/DL (>40); LDL CHOLESTEROL 52.1 MG/DL (<100); NON-HDL-C 73.3 MG/DL; POTASSIUM SERUM 4.5 MMOL/L (3.5-5.1); SODIUM LEVEL 139 MMOL/L (136-145); TOTAL PROTEIN 7.2 G/DL (5.7-8.2); TRIGLYCERIDES LEVEL 106 MG/DL (<150)
[2023-09-28 14:48] LABS: HEMOGLOBIN A1c 8.6 % (4.0-6.0)
== END ==
LOC: M LABDRWAD 12:29
PROVIDERS: ATTEND Registered Nurse
DX: E11.3511 Type 2 diabetes mellitus with proliferative diabetic retinopathy with macular edema, right eye (principal); I10 Essential (primary) hypertension; E78.2 Mixed hyperlipidemia

== ENCOUNTER → 2024-08-27 | Outpatient (REF) | payer MEDICARE, OTHER ==
[2024-08-27 14:06] LABS: HEMOGLOBIN A1c 8.7 % (4.0-6.0)
[2024-08-27 14:38] LABS: BASO # 0.1 10^3/uL (0.0-0.2); BASO % 0.8 % (0.0-1.0); EOS # 0.5 10^3/uL (0.0-0.5); EOS % 5.9 % (0.0-3.0); HEMATOCRIT 46.5 % (42.0-52.0); HEMOGLOBIN 15.4 g/dl (13.5-17.5); LYMPH # 1.4 10^3/uL (1.5-5.0); LYMPH % 18.2 % (24.0-44.0); MEAN CORPUSCULAR HGB CONC 33.1 g/dl (32.0-36.5); MEAN CORPUSCULAR VOLUME 93.6 fl (80.0-96.0); MONO # 0.6 10^3/uL (0.0-0.8); NEUTROPHILS # 5.2 10^3/uL (1.5-8.5); NEUTROPHILS % 66.2 % (36.0-66.0); PLATELET COUNT, AUTOMATED 234 10^3/uL (150-450); RED BLOOD COUNT 4.97 10^6/uL (4.30-6.10); WHITE BLOOD COUNT 7.9 10^3/uL (4.0-10.0)
[2024-08-27 15:40] LABS: ALBUMIN 3.6 G/DL (3.2-5.2); BILIRUBIN,TOTAL 0.5 MG/DL (0.3-1.2); CALCIUM LEVEL 8.9 MG/DL (8.3-10.6); CHOLESTEROL RISK RATIO 4.97 (<5); CREATININE FOR GFR 0.96 MG/DL (0.70-1.30); HDL CHOLESTEROL 35.8 MG/DL (>40); LDL CHOLESTEROL 75.8 MG/DL (<100); NON-HDL-C 142.2 MG/DL; POTASSIUM SERUM 4.7 MMOL/L (3.5-5.1); TOTAL PROTEIN 7.3 G/DL (5.7-8.2)
== END ==
LOC: M LAB REF 13:12
PROVIDERS: ATTEND Nurse Practitioner Family
DX: E11.3511 Type 2 diabetes mellitus with proliferative diabetic retinopathy with macular edema, right eye (principal); I10 Essential (primary) hypertension; E78.2 Mixed hyperlipidemia

== ENCOUNTER → 2024-12-05 | Outpatient (CLI) | payer MEDICARE, OTHER ==
[2024-12-05 14:53] LABS: BASO # 0.1 10^3/uL (0.0-0.2); BASO % 0.9 % (0.0-1.0); EOS # 0.7 10^3/uL (0.0-0.5); EOS % 7.3 % (0.0-3.0); LYMPH # 1.8 10^3/uL (1.5-5.0); LYMPH % 19.8 % (24.0-44.0); MONO # 0.9 10^3/uL (0.0-0.8); MONO % 10.4 % (2.0-8.0); NEUTROPHILS # 5.4 10^3/uL (1.5-8.5); NEUTROPHILS % 59.9 % (36.0-66.0); PLATELET COUNT, AUTOMATED 268 10^3/uL (150-450)
[2024-12-05 14:59] LABS: ALT/SGPT 36.0 U/L (7.0-40); AST/SGOT 35.0 U/L (<34); CALCIUM LEVEL 9.0 MG/DL (8.3-10.6); CARBON DIOXIDE LEVEL 27.0 MMOL/L (20-31); CHLORIDE LEVEL 105.0 MMOL/L (98-107); CHOLESTEROL LEVEL 130.0 MG/DL (<200); CHOLESTEROL RISK RATIO 3.29 (<5); CREATININE FOR GFR 1.05 MG/DL (0.70-1.30); GLOMERULAR FILTRATION RATE 75.4 (>42); LDL CHOLESTEROL 62.6 MG/DL (<100); NON-HDL-C 90.6 MG/DL; POTASSIUM SERUM 4.4 MMOL/L (3.5-5.1); SODIUM LEVEL 142.0 MMOL/L (136-145); TRIGLYCERIDES LEVEL 140.0 MG/DL (<150)
[2024-12-05 15:46] LABS: ESTIMATED AVERAGE GLUCOSE 189.0 MG/DL (60-110)
== END ==
LOC: M LABDRWAD 10:06
PROVIDERS: ATTEND Nurse Practitioner Family
DX: E11.3511 Type 2 diabetes mellitus with proliferative diabetic retinopathy with macular edema, right eye (principal); I10 Essential (primary) hypertension; E78.2 Mixed hyperlipidemia

== ENCOUNTER → 2025-03-20 | Outpatient (REF) | payer MEDICARE, OTHER ==
[2025-03-20 13:58] LABS: ESTIMATED AVERAGE GLUCOSE 186.0 MG/DL (60-110)
== END ==
LOC: M LABDRWAD 13:13
PROVIDERS: ATTEND Nurse Practitioner Family
DX: E11.3511 Type 2 diabetes mellitus with proliferative diabetic retinopathy with macular edema, right eye (principal)